=== PATIENT | male | born 1960 | race Caucasian/White ===

== ENCOUNTER 2019-08-02 16:00 | Inpatient (IN) | payer BC ==
[~2019-08-02] VITALS: Ht 200.7 cm; Wt 146.1 kg
[2019-08-02] VITALS (14 sets, daily range): BP systolic 65–133; BP diastolic 44–68
[2019-08-02] MEDS: NOREPINEPHRIN 8MG/250ML PREMIX 250 ML IV PRN ×2 (16:00→21:14)
[2019-08-02] MEDS ORDERED: IV NORMAL SALINE 1000ML BAG 1,000 ML IV SCH ×2 (16:16→17:35)
[2019-08-02 16:52] LABS: BASO % 0 % (0-3); EOS % 0 % (0-3); LYMPH # 0.7 x10^3/uL (1.0-4.8); LYMPH % 11 % (24-48); MEAN CORPUSCULAR HEMOGLOBIN 30 pg (25-35); MEAN CORPUSCULAR HGB CONC 33 g/dL (31-37); MEAN CORPUSCULAR VOLUME 91 fL (79-100); MONO # 0.4 x10^3/uL (0.0-1.1); MONO % 7 % (0-9); NEUT # 5.6 x10^3/uL (1.8-7.7); NEUT % 83 % (31-73); PLATELET COUNT 152 x10^3/uL (140-400); RED BLOOD COUNT 1.99 x10^6/uL (4.30-5.70); RED CELL DISTRIBUTION WIDTH 15.1 % (11.5-14.5); WHITE BLOOD COUNT 6.8 x10^3/uL (4.0-11.0)
[2019-08-02 16:56] LABS: HEMATOCRIT 18.1 % (39.0-53.0)
[2019-08-02 17:00] LABS: CALCIUM 7.9 mg/dL (8.5-10.1); CREATININE 1.2 mg/dL (0.7-1.3); POTASSIUM 3.4 mmol/L (3.5-5.1)
[2019-08-02 17:01] LABS: PROTHROMBIN TIME PATIENT 17.1 SEC (11.7-14.0)
[2019-08-02 17:06] LABS: ALBUMIN/GLOBULIN RATIO 0.3 (1.0-1.7); MAGNESIUM 1.4 mg/dL (1.8-2.4); TOTAL BILIRUBIN 0.4 mg/dL (0.2-1.0); TOTAL PROTEIN 4.8 g/dL (6.4-8.2)
[2019-08-02 17:12] LABS: % BANDS 10 % (0-9); % LYMPHS 9 % (24-48); % MONOS 3 % (0-10); % SEGS 78 % (35-66); NUCLEATED RBC 4
[2019-08-02 17:15] LABS: ANISOCYTOSIS SLIGHT; PLT ESTIMATE ADEQUATE (ADEQUATE); POLYCHROMASIA MOD; TOXIC GRANULATION SLIGHT
--- NOTE | 2019-08-02 17:16 | PHYS DOC ---
Adult General Chief Complaint Chief Complaint: low blood pressure HPI HPI Patient is a 59 year old male with history of metastatic lung cancer to the brain and bone who presents from radiology because of low blood pressure. Patient is a bed ridden for the last 4-5 days and transferred from [facility] to [facility] yesterday and was seen as an outpatient at [address] [place] [address] service of this hospital because of left lower extremity edema and large DVT and had a SVC filter placement after procedure had low blood pressure of 60s over 40s and treated with IV fluids and Levophed and sent to ER for evaluation. Patient is alert and oriented 1 and unable to give history but according to the family members he had the seizure 5 days ago with severe shaking and complaining of severe pain during transferring the ambulance. Patient was diagnosed with left femoral fracture today without orthopedic intervention. Patient had blood pressure of 80s over 60s at arrival to ER without tachycardia. Review of Systems Review of Systems Unable to obtain because of altered level of consciousness Current Medications Current Medications Current Medications Medications (Trade) Dose Ordered Sig/Ryan Start Time Stop Time Status Last Admin Dose Admin Ceftriaxone Sodium (Rocephin) 1 gm 1X ONCE 08/02/19 17:45 08/02/19 17:46 DC Sodium Chloride 1,000 ml @ 150 mls/hr [id number] 08/02/19 17:35 08/02/19 20:29 DC 08/02/19 18:20 150 MLS/HR Allergies Allergies Allergies Coded Allergies Type Severity Reaction Last Updated Verified bee venom protein (honey bee) Allergy Unknown 08/02/19 Yes Physical Exam Physical Exam Constitutional: Well nourished, mild distress, non-toxic appearance, pale. [] HENT: Normocephalic, atraumatic. Eyes: PERRLA, EOMI, conjunctiva normal, no discharge. [] Neck: Normal range of motion, no tenderness, supple, no stridor. [] Cardiovascular:Heart rate regular rhythm, no murmur [] Lungs & Thorax: Bilateral breath sounds clear to auscultation [] Abdomen: Bowel sounds normal, soft, no tenderness, no masses, no pulsatile masses. [] Skin: Warm, dry, no erythema, no rash. [] Back: No tenderness, no CVA tenderness. [] Extremities: Left thigh with deformity and tenderness and limited range of motion, right lower extremity with moderate edema and mild erythema with painful range of motion. Neurologic: Alert and oriented X 1 Psychologic: Unable to evaluate Current Patient Data Vital Signs Vital Signs Date Time Temp Pulse Resp B/P (MAP) Pulse Ox O2 Delivery O2 Flow Rate FiO2 08/02/19 17:49 100 18 93/51 (65) 92 Nasal Cannula 4.0 08/02/19 16:00 98.1 98.1 Lab Values Laboratory Tests Test 08/02/19 16:17 White Blood Count 6.8 x10^3/uL (4.0-11.0) Red Blood Count 1.99 x10^6/uL (4.30-5.70) L Hemoglobin 6.0 g/dL (13.0-17.5) *L Hematocrit 18.1 % (39.0-53.0) *L Mean Corpuscular Volume 91 fL (79-100) Mean Corpuscular Hemoglobin 30 pg (25-35) Mean Corpuscular Hemoglobin Concent 33 g/dL (31-37) Red Cell Distribution Width 15.1 % (11.5-14.5) H Platelet Count 152 x10^3/uL (140-400) Neutrophils (%) (Auto) 83 % (31-73) H Lymphocytes (%) (Auto) 11 % (24-48) L Monocytes (%) (Auto) 7 % (0-9) Eosinophils (%) (Auto) 0 % (0-3) Basophils (%) (Auto) 0 % (0-3) Neutrophils # (Auto) 5.6 x10^3/uL (1.8-7.7) Lymphocytes # (Auto) 0.7 x10^3/uL (1.0-4.8) L Monocytes # (Auto) 0.4 x10^3/uL (0.0-1.1) Eosinophils # (Auto) 0.0 x10^3/uL (0.0-0.7) Basophils # (Auto) 0.0 x10^3/uL (0.0-0.2) Segmented Neutrophils % 78 % (35-66) H Band Neutrophils % 10 % (0-9) H Lymphocytes % 9 % (24-48) L Monocytes % 3 % (0-10) Nucleated Red Blood Cells 4 Toxic Granulation Slight Dohle Bodies Few Platelet Estimate Adequate (ADEQUATE) Polychromasia Mod Anisocytosis Slight Prothrombin Time 17.1 SEC (11.7-14.0) H Prothrombin Time INR 1.4 (0.8-1.1) H Activated Partial Thromboplast Time 37 SEC (24-38) Sodium Level 139 mmol/L (136-145) Potassium Level 3.4 mmol/L (3.5-5.1) L Chloride Level 103 mmol/L (98-107) Carbon Dioxide Level 29 mmol/L (21-32) Anion Gap 7 (6-14) Blood Urea Nitrogen 13 mg/dL (8-26) Creatinine 1.2 mg/dL (0.7-1.3) Estimated GFR (Cockcroft-Gault) 62.0 BUN/Creatinine Ratio 11 (6-20) Glucose Level 119 mg/dL (70-99) H Lactic Acid Level 2.8 mmol/L (0.4-2.0) H Calcium Level 7.9 mg/dL (8.5-10.1) L Magnesium Level 1.4 mg/dL (1.8-2.4) L Total Bilirubin 0.4 mg/dL (0.2-1.0) Aspartate Amino Transferase (AST) 26 U/L (15-37) Alanine Aminotransferase (ALT) 24 U/L (16-63) Alkaline Phosphatase 107 U/L (46-116) Creatine Kinase 76 U/L (39-308) Troponin I Quantitative 0.168 ng/mL (0.000-0.055) NN-Vxg-P-Type Natriuretic Peptide 1496 pg/mL (0-124) H Total Protein 4.8 g/dL (6.4-8.2) L Albumin 1.0 g/dL (3.4-5.0) L Albumin/Globulin Ratio 0.3 (1.0-1.7) L Lipase 35 U/L (73-393) L Laboratory Tests 08/02/19 16:17 Laboratory Tests 08/02/19 16:17 EKG EKG EKG interpreted by me. EKG at 1649 showed sinus rhythm at rate of 100, abnormal left axis deviation, left anterior fascicular block, prolonged QT at T7 4,] ST-T wave elevations. Radiology/Procedures Radiology/Procedures [][facility] [address] [place] [address] IMAGING REPORT Signed PATIENT: OZZY GRAY ACCOUNT: [id number] : 1960 LOCATION: [facility] ICU AGE: 59 SEX: M EXAM STATUS: ADM IN ORD. PHYSICIAN: JOSELUIS HUTCHINSON MD REASON: injury PROCEDURE: HIP LEFT 2V WITH PELVIS Exam: Left hip 2 views INDICATION: Injury TECHNIQUE: Frontal and frog-leg lateral views of the left hip Comparisons: None FINDINGS: There is a fracture through the proximal left femoral diaphysis which is moderately displaced. Apparent callus formation is noted adjacent to the fracture site. Joint spaces are well-maintained. Note fractures are seen. IMPRESSION: Moderately displaced fracture through the proximal left femoral diaphysis. There appears to be some amorphous adjacent calcifications which may represent callus formation in the subacute setting. If this is a more acute injury it raises the possibilities of an underlying pathologic lesion. Electronically signed by: Guerrero Macario MD (08/02/2019 5:50 PM) [facility] DICTATED and SIGNED BY: GUERRERO MACARIO MD DATE: 08/02/19 8026 Course & Med Decision Making Course & Med Decision Making Pertinent Labs and Imaging studies reviewed. (See chart for details) Evaluation of patient in ER showed 59-year-old patient with metastatic lung cancer and right large DVT and left femoral fracture from radiology unit because of hypotension after procedure. Patient had blood pressure of 80s over 40s that improved with IV fluid. Sepsis protocol was started with obtaining blood cultures and lactic acid and after lactic acid of 2.8 antibiotic was given. Patient is a DNR . Hemoglobin was 6.0 and blood for transfusion was requested. Patient requiring admission for further evaluation and treatment. Discussed with Dr. Coulter who is in agreement with admission. Discussed findings and plan with patient and family, who acknowledge understanding and agreement. Dragon Disclaimer Dragon Disclaimer This electronic medical record was generated, in whole or in part, using a voice recognition dictation system. Departure Departure Impression: Primary Impression: Anemia Additional Impressions: Hypertension Metastatic lung cancer (metastasis from lung to other site) Sepsis Disposition: ADMITTED INPATIENT Admitting Physician: GERSON Condition: GUARDED Referrals: ISIAH GREGORY MD (PCP) Critical Care Time Critical care time was 80 minutes exclusive of procedures. Date and Time of Reassessment Date: Aug 02, 2019 Time: 18:00 Fluid Challenge Is the fluid challenge complet: Yes IBW Target Volume Used: Yes BMI > 30: Yes Vital Signs Vital Signs: Vital Signs Date Time Temp Pulse Resp B/P (MAP) Pulse Ox O2 Delivery O2 Flow Rate FiO2 08/02/19 17:49 100 18 93/51 (65) 92 Nasal Cannula 4.0 08/02/19 16:00 98.1 98.1 Temperature Source: Axillary Respirations Respiratory Effort: Non-Labored Cardiovascular Pulse Rhythm: Regular Heart: Nml rate, reg. rhythm Lung Sounds Breath Sounds: Clear Capillary Refil Capillary Refill: Rt Hand < 3 seconds Peripheral Pulse Pulse Location: Radial Pulse Strength: Normal (2+) Pulse Assessment Method: NIBP Integumentary Skin: Warm Problem Qualifiers Primary Impression: Anemia Anemia type: unspecified type Qualified Codes: D64.9 - Anemia, unspecified Additional Impressions: Hypertension Hypertension type: unspecified Qualified Codes: I10 - Essential (primary) hypertension Metastatic lung cancer (metastasis from lung to other site) Laterality: unspecified laterality Qualified Codes: C34.90 - Malignant neoplasm of unspecified part of unspecified bronchus or lung JOSELUIS HUTCHINSON MD Aug 02, 2019 17:16
[2019-08-02] MEDS ORDERED: IV NORMAL SALINE 1000ML BAG 1,000 ML IV ONE (17:45)
[2019-08-02] MEDS ORDERED: cefTRIAXone IV Push 1 GM VIAL. IVP ONE (17:45)
--- NOTE | 2019-08-02 17:53 | RAD ---
Exam: Left hip 2 views INDICATION: Injury TECHNIQUE: Frontal and frog-leg lateral views of the left hip Comparisons: None FINDINGS: There is a fracture through the proximal left femoral diaphysis which is moderately displaced. Apparent callus formation is noted adjacent to the fracture site. Joint spaces are well-maintained. Note fractures are seen. IMPRESSION: Moderately displaced fracture through the proximal left femoral diaphysis. There appears to be some amorphous adjacent calcifications which may represent callus formation in the subacute setting. If this is a more acute injury it raises the possibilities of an underlying pathologic lesion. Electronically signed by: Guerrero Lamar MD (08/02/2019 5:50 PM) [facility]
[2019-08-02] MEDS: IV NORMAL SALINE 1000ML BAG 1,000 ML IV SCH ×2 (21:13→23:28)
--- NOTE | 2019-08-02 22:40 | PDOC2 ---
CONSULT Date of Consult Date of Consult DATE: 08/02/19 TIME: 22:36 Reason for Consult Reason for Consult: left hip fracture Identification/Chief Complaint Chief Complaint left hip fracture Source Source: Caregiver, Chart review, Patient History of Present Illness Reason for Visit: This 59-year-old man was diagnosed with metastatic lung cancer a couple of months ago, and mostly been treated at [facility] in [place]. He has metastases to the brain and bone but since he is only 59 years old he and his family have desired aggressive treatment. He was attempting to go to [facility] for additional rehabilitation. He had a seizure on Monday. He was diagnosed with a DVT in the right lower extremity. He has a pathologic fracture in the left femur that probably happened during the seizure on Monday. He has since been treated with a vena cava filter. He has bilateral pulmonary emboli recently diagnosed. I spoke to Dr. Montoya 08/03/19, and he would like to start an ticoagulation as soon as the fracture is repaired and he was hopeful Mr Funk would have surgery 08/03/19. I also spoke to the senior support engineer and to the anesthesiologist about /2 vs delay, and it seems there are significant risks either way, without any clear need to anticoagulate before surgery, and then need to hold anticoagulation for surgery anyway. I spoke to the family in detail about the risks benefits and alternatives. Another alternative is comfort care without surgery, but neither the patient nor the family was interested in nonoperative care. 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 He also has a history of thrombocytopenia, hypercalcemia of malignancy, urinary retention, GI bleeding with duodenal ulcer, also history of depression, hypertension, sleep apnea, history of prostate cancer, seizures. PAST SURGICAL HISTORY: Smart port placement, left side. FAMILY HISTORY: Noncontributory. SOCIAL HISTORY: Half a pack smoking for 17 years, social marijuana, smokeless tobacco. ALLERGIES: BEE STING. MEDICATIONS: At [facility], he was on fentanyl 12 mcg, Keppra 750 mg twice a day, modafinil 200 mg/Provigil daily, Protonix 40 mg daily, Flomax 0.4 daily, aspirin 81 mg daily, dexamethasone 2 mg every 12 hours, oxycodone 5 mg, Tylenol, amlodipine 10 mg daily, citalopram 40 mg daily, epinephrine, Lasix 20 mg daily, gabapentin 300 mg, Hyzaar 100/25, lidocaine 4%, metoprolol 50 mg daily, nitro, MiraLax, pravastatin 40 mg daily, senna daily, tramadol, ibuprofen. Social History <1 pack per day Drugs: Marijuana Lives: with Family Current Problem List Problem List 1. Pathological fracture of the left femur. 2. Lung cancer with metastasis, squamous cell. 3. Deep venous thrombosis, right leg. 4. Anemia requiring transfusion. 5. Hypotension. 6. History of lung cancer with metastasis to the brain and to the lumbar spine, had a chemo as well as radiation treatment. 7. Supraventricular tachycardia, heart rate around 140, probably multiple factors, slight bump in troponin 0.1. 8. Recent GI Bleed 9. Bilateral Pulmonary Emboli Current Medications Current Medications Current Medications Sodium Chloride 1,000 ml @ 1,000 mls/hr Q1H IV Last administered on 08/02/19at 16:16; Start 08/02/19 at 16:16; Stop 08/02/19 at 17:15; Status DC Ceftriaxone Sodium (Rocephin) 1 gm 1X ONCE IVP ; Start 08/02/19 at 17:45; Stop 08/02/19 at 17:46; Status DC Sodium Chloride 1,000 ml @ 1,000 mls/hr 1X ONCE IV Last administered on 08/02/19at 17:45; Start 08/02/19 at 17:45; Stop 08/02/19 at 18:44; Status DC Sodium Chloride 1,000 ml @ 150 mls/hr Q6H40M IV Last administered on 08/02/19at 18:20; Start 08/02/19 at 17:35; Stop 08/02/19 at 20:29; Status DC Norepinephrine Bitartrate 250 ml @ 29.512 mls/ hr CONT PRN IV SEE I/O RECORD Last administered on 08/02/19at 21:14; Start 08/02/19 at 19:15 Sodium Chloride 1,000 ml @ 200 mls/hr Q5H IV Last administered on 08/02/19at 21:13; Start 08/02/19 at 20:30 Fentanyl Citrate (Fentanyl 2ml Vial) 25 mcg PRN Q2HR PRN IVP MODERATE TO SEVERE PAIN; Start 08/02/19 at 20:30 Allergies Allergies: Coded Allergies: bee venom protein (honey bee) (Verified Allergy, Intermediate, 08/03/19) Physical Exam General: Alert, Cooperative HEENT: Atraumatic Lungs: Other (O2 4L NC 95% sat, no cyanosis, able to converse without difficulty) Heart: Regular rate Abdomen: Soft Extremities: Other (LLE is shortened and externally rotated. The skin is intact over the fracture. There is tenderness of the proximal femur. He can dorsiflex and plantar flex the toes and has intact pulses and sensation distally.) Skin: No significant lesion Neuro: Normal tone, Sensation intact MUSCULOSKELETAL: Abnormal exam of right (thigh and calf, tender to palpation consistent with DVT. Diffuse swelling. Pulses intact. Motor intact.), Abn muscle strength of (right arm recent paralysis episode. Left arm has full ROM, without malalignment deformity or tenderness) Vitals VITALS Vital Signs Date Time Temp Pulse Resp B/P (MAP) Pulse Ox O2 Delivery O2 Flow Rate FiO2 08/02/19 22:12 98.8 103 18 115/60 98.8 08/02/19 22:00 93 Nasal Cannula 4.0 Labs Labs Laboratory Tests Test 08/02/19 16:17 08/02/19 20:15 White Blood Count 6.8 x10^3/uL (4.0-11.0) Red Blood Count 1.99 x10^6/uL (4.30-5.70) Hemoglobin 6.0 g/dL (13.0-17.5) Hematocrit 18.1 % (39.0-53.0) Mean Corpuscular Volume 91 fL (79-100) Mean Corpuscular Hemoglobin 30 pg (25-35) Mean Corpuscular Hemoglobin Concent 33 g/dL (31-37) Red Cell Distribution Width 15.1 % (11.5-14.5) Platelet Count 152 x10^3/uL (140-400) Neutrophils (%) (Auto) 83 % (31-73) Lymphocytes (%) (Auto) 11 % (24-48) Monocytes (%) (Auto) 7 % (0-9) Eosinophils (%) (Auto) 0 % (0-3) Basophils (%) (Auto) 0 % (0-3) Neutrophils # (Auto) 5.6 x10^3/uL (1.8-7.7) Lymphocytes # (Auto) 0.7 x10^3/uL (1.0-4.8) Monocytes # (Auto) 0.4 x10^3/uL (0.0-1.1) Eosinophils # (Auto) 0.0 x10^3/uL (0.0-0.7) Basophils # (Auto) 0.0 x10^3/uL (0.0-0.2) Segmented Neutrophils % 78 % (35-66) Band Neutrophils % 10 % (0-9) Lymphocytes % 9 % (24-48) Monocytes % 3 % (0-10) Nucleated Red Blood Cells 4 Toxic Granulation Slight Dohle Bodies Few Platelet Estimate Adequate (ADEQUATE) Polychromasia Mod Anisocytosis Slight Prothrombin Time 17.1 SEC (11.7-14.0) Prothromb Time International Ratio 1.4 (0.8-1.1) Activated Partial Thromboplast Time 37 SEC (24-38) Sodium Level 139 mmol/L (136-145) Potassium Level 3.4 mmol/L (3.5-5.1) Chloride Level 103 mmol/L (98-107) Carbon Dioxide Level 29 mmol/L (21-32) Anion Gap 7 (6-14) Blood Urea Nitrogen 13 mg/dL (8-26) Creatinine 1.2 mg/dL (0.7-1.3) Estimated GFR (Cockcroft-Gault) 62.0 BUN/Creatinine Ratio 11 (6-20) Glucose Level 119 mg/dL (70-99) Lactic Acid Level 2.8 mmol/L (0.4-2.0) 1.3 mmol/L (0.4-2.0) Calcium Level 7.9 mg/dL (8.5-10.1) Magnesium Level 1.4 mg/dL (1.8-2.4) Total Bilirubin 0.4 mg/dL (0.2-1.0) Aspartate Amino Transf (AST/SGOT) 26 U/L (15-37) Alanine Aminotransferase (ALT/SGPT) 24 U/L (16-63) Alkaline Phosphatase 107 U/L (46-116) Creatine Kinase 76 U/L (39-308) Troponin I Quantitative 0.168 ng/mL (0.000-0.055) LB-Sbv-C-Type Natriuretic Peptide 1496 pg/mL (0-124) Total Protein 4.8 g/dL (6.4-8.2) Albumin 1.0 g/dL (3.4-5.0) Albumin/Globulin Ratio 0.3 (1.0-1.7) Lipase 35 U/L (73-393) Laboratory Tests Test 08/02/19 16:17 08/02/19 20:15 White Blood Count 6.8 x10^3/uL (4.0-11.0) Red Blood Count 1.99 x10^6/uL (4.30-5.70) Hemoglobin 6.0 g/dL (13.0-17.5) Hematocrit 18.1 % (39.0-53.0) Mean Corpuscular Volume 91 fL (79-100) Mean Corpuscular Hemoglobin 30 pg (25-35) Mean Corpuscular Hemoglobin Concent 33 g/dL (31-37) Red Cell Distribution Width 15.1 % (11.5-14.5) Platelet Count 152 x10^3/uL (140-400) Neutrophils (%) (Auto) 83 % (31-73) Lymphocytes (%) (Auto) 11 % (24-48) Monocytes (%) (Auto) 7 % (0-9) Eosinophils (%) (Auto) 0 % (0-3) Basophils (%) (Auto) 0 % (0-3) Neutrophils # (Auto) 5.6 x10^3/uL (1.8-7.7) Lymphocytes # (Auto) 0.7 x10^3/uL (1.0-4.8) Monocytes # (Auto) 0.4 x10^3/uL (0.0-1.1) Eosinophils # (Auto) 0.0 x10^3/uL (0.0-0.7) Basophils # (Auto) 0.0 x10^3/uL (0.0-0.2) Segmented Neutrophils % 78 % (35-66) Band Neutrophils % 10 % (0-9) Lymphocytes % 9 % (24-48) Monocytes % 3 % (0-10) Nucleated Red Blood Cells 4 Toxic Granulation Slight Dohle Bodies Few Platelet Estimate Adequate (ADEQUATE) Polychromasia Mod Anisocytosis Slight Prothrombin Time 17.1 SEC (11.7-14.0) Prothromb Time International Ratio 1.4 (0.8-1.1) Activated Partial Thromboplast Time 37 SEC (24-38) Sodium Level 139 mmol/L (136-145) Potassium Level 3.4 mmol/L (3.5-5.1) Chloride Level 103 mmol/L (98-107) Carbon Dioxide Level 29 mmol/L (21-32) Anion Gap 7 (6-14) Blood Urea Nitrogen 13 mg/dL (8-26) Creatinine 1.2 mg/dL (0.7-1.3) Estimated GFR (Cockcroft-Gault) 62.0 BUN/Creatinine Ratio 11 (6-20) Glucose Level 119 mg/dL (70-99) Lactic Acid Level 2.8 mmol/L (0.4-2.0) 1.3 mmol/L (0.4-2.0) Calcium Level 7.9 mg/dL (8.5-10.1) Magnesium Level 1.4 mg/dL (1.8-2.4) Total Bilirubin 0.4 mg/dL (0.2-1.0) Aspartate Amino Transf (AST/SGOT) 26 U/L (15-37) Alanine Aminotransferase (ALT/SGPT) 24 U/L (16-63) Alkaline Phosphatase 107 U/L (46-116) Creatine Kinase 76 U/L (39-308) Troponin I Quantitative 0.168 ng/mL (0.000-0.055) ZF-Ofk-L-Type Natriuretic Peptide 1496 pg/mL (0-124) Total Protein 4.8 g/dL (6.4-8.2) Albumin 1.0 g/dL (3.4-5.0) Albumin/Globulin Ratio 0.3 (1.0-1.7) Lipase 35 U/L (73-393) Images Images Report reviewed, images independently reviewed. Probable pathologic fracture left femur. Likely metastatic disease. [facility] [address] [place] [address] IMAGING REPORT Signed PATIENT: OZZY FUNK ACCOUNT: [id number] : 1960 LOCATION: [facility] ICU AGE: 59 SEX: M EXAM STATUS: ADM IN ORD. PHYSICIAN: JOSELUIS HUTCHINSON MD REASON: injury PROCEDURE: HIP LEFT 2V WITH PELVIS Exam: Left hip 2 views INDICATION: Injury TECHNIQUE: Frontal and frog-leg lateral views of the left hip Comparisons: None FINDINGS: There is a fracture through the proximal left femoral diaphysis which is moderately displaced. Apparent callus formation is noted adjacent to the fracture site. Joint spaces are well-maintained. Note fractures are seen. IMPRESSION: Moderately displaced fracture through the proximal left femoral diaphysis. There appears to be some amorphous adjacent calcifications which may represent callus formation in the subacute setting. If this is a more acute injury it raises the possibilities of an underlying pathologic lesion. Electronically signed by: Guerrero Macario MD (08/02/2019 5:50 PM) [facility] DICTATED and SIGNED BY: GUERRERO MACARIO MD DATE: 08/02/19 1750 Assessment/Plan Assessment/Plan Left proximal femur pathologic fracture. Unless biopsy and workup was performed elsewhere, he would need neoplasm workup. Will discuss need for stabilization of fracture. Addendum Patient had workup in [place], known lung CA with mets to brain and bone. See updated HPI. I spoke to Dr. Montoya 08/03/19, and he would like to start anticoagulation as soon as the fracture is repaired and he was hopeful Mr Funk would have surgery 08/03/19. I have also discussed the case with Dr. Moreno the senior support engineer, and Dr. Mulligan the anesthesiologist by phone on 08/03 discussing surgery on 08/03 vs delay, and it seems there are significant risks either way, without any clear need to anticoagulate before surgery, and then need to hold anticoagulation for surgery anyway. I spoke to the family in detail about the risks benefits and alternatives. Another alternative is comfort care without surgery, but neither the patient nor the family was interested in nonoperative care. I spoke to them about the significant risks of pulmonary emboli, fat emboli, bleeding, infection, nonunion or malunion, continued pain, or other potential surgical or anesthetic complications. This is a very complicated case, high risk for multiple reasons. There is risk of intraoperative . All of the patient and family's questions were answered and he desired to proceed with surgery today. THERESA SHERMAN MD Aug 02, 2019 22:40
[2019-08-02 22:46] LABS: BASO % 0 % (0-3); EOS % 0 % (0-3); HEMATOCRIT 26.4 % (39.0-53.0); HEMOGLOBIN 8.8 g/dL (13.0-17.5); LYMPH # 0.7 x10^3/uL (1.0-4.8); LYMPH % 9 % (24-48); MEAN CORPUSCULAR HEMOGLOBIN 30 pg (25-35); MEAN CORPUSCULAR HGB CONC 33 g/dL (31-37); MEAN CORPUSCULAR VOLUME 89 fL (79-100); MONO # 0.6 x10^3/uL (0.0-1.1); MONO % 7 % (0-9); NEUT # 7.1 x10^3/uL (1.8-7.7); NEUT % 84 % (31-73); PLATELET COUNT 178 x10^3/uL (140-400); RED BLOOD COUNT 2.98 x10^6/uL (4.30-5.70); WHITE BLOOD COUNT 8.5 x10^3/uL (4.0-11.0)
[2019-08-03] VITALS (30 sets, daily range): BP systolic 76–151; BP diastolic 43–83
[2019-08-03] MEDS: IV NORMAL SALINE 1000ML BAG 1,000 ML IV SCH ×4 (04:53→20:41)
--- NOTE | 2019-08-03 05:30 | NUR ---
Pt. admitted to room 107 from ED. Family at bedside shortly after arrival, pt. and family updated on plan of care. Dr. Painting phoned unit, updated on pt. condition, orders received. Consult placed with Dr. Eduardo's answering service, requested return call, no return call received.
[2019-08-03 06:10] LABS: BASO # 0.1 x10^3/uL (0.0-0.2); BASO % 1 % (0-3); EOS % 0 % (0-3); HEMOGLOBIN 8.6 g/dL (13.0-17.5); LYMPH # 0.7 x10^3/uL (1.0-4.8); LYMPH % 10 % (24-48); MEAN CORPUSCULAR HEMOGLOBIN 29 pg (25-35); MEAN CORPUSCULAR HGB CONC 33 g/dL (31-37); MEAN CORPUSCULAR VOLUME 89 fL (79-100); MONO # 0.5 x10^3/uL (0.0-1.1); MONO % 7 % (0-9); NEUT # 5.6 x10^3/uL (1.8-7.7); NEUT % 82 % (31-73); PLATELET COUNT 185 x10^3/uL (140-400); RED BLOOD COUNT 2.94 x10^6/uL (4.30-5.70); RED CELL DISTRIBUTION WIDTH 15.3 % (11.5-14.5); WHITE BLOOD COUNT 6.9 x10^3/uL (4.0-11.0)
[2019-08-03 06:49] LABS: CALCIUM 8.2 mg/dL (8.5-10.1); CREATININE 0.8 mg/dL (0.7-1.3); GFR 98.9
[2019-08-03 06:54] LABS: POTASSIUM 2.7 mmol/L (3.5-5.1)
--- NOTE | 2019-08-03 06:58 | EKG ---
[facility] [address] [place] [address] Test Date: 2019-08-03 Test Time: 07:52:15 Pat Name: OZZY GRAY Department: Room: 107 1 Gender: M Associate Software Development Engineer: SUSHATN : 1960 Requested By: ISIAH GREGORY Order Number: [id number] Reading MD: Measurements Intervals Aurora Rate: 145 P: [place]: QRS: -66 QRSD: 92 T: 76 QT: 316 QTc: 494 Interpretive Statements SUPRAVENTRICULAR TACHYCARDIA ABNORMAL LEFT AXIS DEVIATION S1,S2,S3 PATTERN LEFT ANTERIOR FASCICULAR BLOCK QRS(T) CONTOUR ABNORMALITY CONSIDER ANTEROLATERAL MYOCARDIAL DAMAGE ST & T ABNORMALITY, CONSIDER INFERIOR ISCHEMIA OR LEFT VENTRICULAR STRAIN ABNORMAL ECG RI6.01 No previous ECG available for comparison
[2019-08-03] MEDS: POTASSIUM CHL 20MEQ PREMIX 50 ML IV SCH ×3 (07:10→09:26)
[2019-08-03] MEDS: NOREPINEPHRIN 8MG/250ML PREMIX 250 ML IV PRN (07:26)
--- NOTE | 2019-08-03 07:49 | RAD ---
AP chest x-ray HISTORY: Pain. FINDINGS: Left subclavian portacatheter tip right atrium. Heart size is normal. There is a 4 cm soft tissue mass at the left lung apex. No pneumothorax. No pleural effusions. Bones are unremarkable. IMPRESSION: 4 cm round mass at the left upper lobe apex. If this has not been previously worked up, CT chest imaging would be advised. Left knee AP lateral x-rays 2 views HISTORY: Pain and loss of range of motion. FINDINGS: Soft tissue edema of the thigh, knee and upper calf diffusely. No fracture of the femur, tibia or fibula at the knee. No dislocation. There is a 2 cm long enthesophyte of the quadriceps tendon insertion at the upper patella which has a or lateral linear defect which could be a fracture. IMPRESSION: Quadriceps tendinosis with a prominent enthesophyte which has a linear lucency which could represent a fracture of the enthesophyte of indeterminate age. AP pelvis and left hip lateral x-rays HISTORY: Pain and loss of range of motion of the left hip. FINDINGS: Catheter presumably with the bladder. There is an aggressive destructive lytic permeative lesion involving the left intertrochanteric femur, lesser femoral trochanter and subtrochanteric femoral shaft along the medial cortex associated with a pathologic fracture with 5 cm of distraction. IMPRESSION: Pathologic proximal left femoral fracture associated with an aggressive permeative lytic lesion, most likely a metastasis or plasmacytoma. A sarcoma would also be a consideration. There appears to be extraosseous extension of the lesion at the medial thigh. Electronically signed by: Titus Singh MD (08/03/2019 7:45 AM) [facility]
[2019-08-03] MEDS: fentaNYL PF VIAL 100 MCG/2 ML VIAL IVP PRN ×3 (08:06→19:14)
--- NOTE | 2019-08-03 10:28 | PDOC ---
Provider Note Provider Note Pt seen in ICU, H&P dictated.#[id number]. spoke with oncology and cardiology. spoke with pts sister at bedside. ortho had seen pt . pt on high dose levophed for hypotension hb 6, transfused 2 u prbc PSVT monitor will do CTA r/o PE BOB PHAN MD Aug 03, 2019 10:28
[2019-08-03] MEDS ORDERED: MAGNESIUM SULFATE 2GM 50 ML IV ONE (11:00)
[2019-08-03] MEDS ORDERED: IOHEXOL 350 MG/ML 100 ML VIAL. IV ONE (11:30)
[2019-08-03] MEDS ORDERED: CONTRAST GIVEN. MC PRN (11:30)
--- NOTE | 2019-08-03 11:54 | HP ---
ADMIT DATE: 08/02/2019 ATTENDING PHYSICIAN: Dr. Fern Retana. REASON FOR ADMISSION TO THE HOSPITAL: 1. Anemia. 2. Femoral fracture, pathological. 3. History of lung cancer. HISTORY OF PRESENT ILLNESS: The patient is a 59-year-old male. 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 The patient was treated in 07/2019 with Keytruda. He had brain radiation. Had radiation to lumbar spine too, total of 10 treatments in July. The patient was initially admitted to acute rehab, but continued to have generalized weakness, unable to tolerate rehab. The patient was transferred to [facility] that was 2 days ago and the patient in the [facility] was found to have a hemoglobin low at 6.8 and he also was found to have a DVT, right leg. The patient was sent to [facility] for IVC filter and x-rays show he had a pathological fracture of the left hip and the patient was also hypotensive, anemic, hemoglobin 6, was admitted to the ICU, was started on Levophed and also given 2 units of packed RBC, hemoglobin went up to 8. The patient is being evaluated by orthopedic, Cardiology. PAST MEDICAL HISTORY: The patient as mentioned has a history of lung cancer, squamous cell with metastasis to the brain into the lumbar spine L1, had a chemo, Keytruda as well as radiation treatment. He also has a history of thrombocytopenia, hypercalcemia of malignancy, urinary retention, GI bleeding with duodenal ulcer, also history of depression, hypertension, sleep apnea, history of prostate cancer, seizures. PAST SURGICAL HISTORY: Smart port placement, left side. FAMILY HISTORY: Noncontributory. SOCIAL HISTORY: Half a pack smoking for 17 years, social marijuana, smokeless tobacco. ALLERGIES: BEE STING. MEDICATIONS: At [facility], he was on fentanyl 12 mcg, Keppra 750 mg twice a day, modafinil 200 mg/Provigil daily, Protonix 40 mg daily, Flomax 0.4 daily, aspirin 81 mg daily, dexamethasone 2 mg every 12 hours, oxycodone 5 mg, Tylenol, amlodipine 10 mg daily, citalopram 40 mg daily, epinephrine, Lasix 20 mg daily, gabapentin 300 mg, Hyzaar 100/25, lidocaine 4%, metoprolol 50 mg daily, nitro, MiraLax, pravastatin 40 mg daily, senna daily, tramadol, ibuprofen. PHYSICAL EXAMINATION: GENERAL: The patient ICU, not in any distress. VITAL SIGNS: Temperature 98, pulse of 140, coming down to 120, respirations 20, blood pressure 110/60 on Levophed at least 50 mcg. HEENT: Head is atraumatic. Pupils equal. Oral cavity, dry tongue. NECK: Supple. No mass palpable. CHEST: Symmetrical, has a port in the left side of chest. CARDIOVASCULAR: S1, S2, tachycardic. LUNGS: Diminished breath sounds. ABDOMEN: Soft, no mass palpable. EXTERNAL GENITALIA: Mar catheter. RECTAL: Deferred. EXTREMITIES: Swelling in the right leg 2-3+. Patient has a DVT, right leg and left leg. The patient denies any pain in the groin area, did not move. Examination of the lower extremities is deferred at this point. LABORATORY DATA: Shows a white count of 6, hemoglobin 6 and given 2 units of packed RBC, went up to 8, and platelets are normal. Electrolytes: Sodium 145, potassium 2.7, magnesium 1.4, BUN and creatinine are normal and the patient had x-ray of the pelvis, which shows femoral fracture of the femoral neck or upper femur. FINAL IMPRESSION: 1. Pathological fracture of the left femur. 2. Lung cancer with metastasis, squamous cell.stage 4 3. Deep venous thrombosis, right leg.Acute 4. Anemia requiring transfusion. 5. Hypotension.on Levophed 40 mcg 6. History of lung cancer with metastasis to the brain and to the lumbar spine, had a chemo as well as radiation treatment. 7. Supraventricular tachycardia, heart rate around 140, probably multiple factors, slight bump in troponin 0.1. 8.H/o GI bleed recent duodenal ulcer . 9.PE extensive bilateral lungs, PLAN: Orthopedic is consulted for possible surgery. We will replace potassium and magnesium .Tranfuse 2 u prbc to keep HB around 8.0. Cardiology is consulted for SVT will do ECHO for lvf.Levophed for BP control on 40 mcg,Pain control on fentanyl. spoke with multiple specialists.CTA chest showed PE multiple , will consult pulmonary. total time spent 43 mts coordinating care have Oncology see while he is in the hospital. Prognosis is guarded. BOB PHAN MD DR: Lexy JOB#: [id number] / [id number] [facility]
--- NOTE | 2019-08-03 12:13 | RAD ---
CT angiography chest with contrast. CT pelvis without contrast. HISTORY: Lung cancer, DVT, left hip fracture. TECHNIQUE: Noncontrast imaging of the pelvis and postcontrast CT imaging of the chest with 100 mL Omnipaque 350 intravenous contrast with 3-D MIP reconstructions of the pulmonary arteries to assess for emboli. Chest findings: Extensive bilateral pulmonary artery emboli involving the distal right and left pulmonary arteries at the guy which are near occlusive with extensive embolic burden within the bilateral peripheral lobar arteries. No saddle embolus evident. No obvious enlargement of the right heart chambers evident. Heart size normal. Thoracic aorta and esophagus are unremarkable. Bulky bilateral hilar and mediastinal adenopathy largest measuring 3 cm at the AP window. Left upper lobe apex 4.7 cm mass contacts the pleura. Separately there is an aggressive lytic lesion with extensive soft tissue mass involving the left posterior lateral second rib with extensive involvement of the pleura and chest wall measuring 7.5 cm in size. Separately there is a posterior right sixth rib lytic lesion adjacent of the costovertebral junction with adjacent pleural thickening which could indicate pleural invasion by the lesion. Some subpleural groundglass opacities and nodularity could represent pulmonary infarcts. No pleural effusions. Apical pulmonary emphysema. IMPRESSION: 1. Extensive bilateral pulmonary emboli as described above. There may be subpleural pulmonary infarcts present. 2. 4 cm left upper lobe apical mass concerning for lung malignancy or metastatic disease. 3. Extensive thoracic metastatic disease with bulky mediastinal and hilar adenopathy as well as lytic bone lesions with extraosseous soft tissue extension as described above. Pelvis findings: There is an aggressive permeative destructive lytic lesion of the left subtrochanteric femoral shaft and lesser trochanter with a pathologic spiral fracture which is distracted by 4 cm , there is blowout of bony fragments and soft tissue density suspicious for extraosseous extension of tumor in a 9 cm region surrounding the fracture within the deep thigh. No additional pelvic lytic or sclerotic bony lesions evident. Catheter in the bladder. IMPRESSION: Lytic destructive lesion of the proximal left femur with a pathologic fracture most likely a lytic bony metastasis given the presence of additional lesions in the chest as described above. FOR INTERNAL CODING PURPOSES Critical result: Findings discussed with the patient's ICU nurse James Jansen at 08/03/2019 12:09 PM. Read back of report was performed. The nurse is calling the treating physician with these results immediately. RESULT CODE: (C) Exposure: One or more of the following individualized dose reduction techniques were utilized for this examination: 1. Automated exposure control 2. Adjustment of the mA and/or kV according to patient size 3. Use of iterative reconstruction technique Electronically signed by: Titus Singh MD (08/03/2019 12:10 PM) [facility]
--- NOTE | 2019-08-03 12:46 | PDOC ---
Provider Note Provider Note CT scans and report reviewed. Bilateral pulmonary emboli. CT femur shows lytic lesion with pathologic fracture. I had initially planned femur stabilization today, however I am concerned that femur stabilization today would cause intra-operative progressive pulmonary emoboli due to required intramedullary femoral reaming and manipulation of lower extremity. I will consult Pulmonary to discuss surgical timing, anticoagulation (heparinize now with surgery later?), and whether a vena cava filter would offer any benefit. THERESA SHERMAN MD Aug 03, 2019 12:46
--- NOTE | 2019-08-03 13:01 | PDOC2 ---
CARDIOLOGY CONSULT NOTE CHEIF COMPLAINT: Tachycardia and positive troponin HPI: 59-year-old man with unfortunate metastatic cancer comes into the hospital in the setting of hypotension. He is also had some dyspnea and significant tachycardia. In speaking with the patient he has been bedridden for nearly 2 months due to various issues including debility and metastatic cancer. His mother and sister are at bedside. Presently he denies any chest pain. Thus far evaluations revealed DVT, a significant pulmonary emboli burden. PMHX: Metastatic cancer DVT Debility with recent pathologic left hip fracture Hypertension history SOCHX: He is . No alcohol, tobacco or illicit drug use. FAMHX: Noncontributory CURRENT MEDS: Current Medications Medications (Trade) Dose Ordered Sig/Ryan Route PRN Reason Start Time Stop Time Status Last Admin Dose Admin Sodium Chloride 1,000 ml @ 1,000 mls/hr Q1H IV 08/02/19 16:16 08/02/19 17:15 DC 08/02/19 16:16 Sodium Chloride 1,000 ml @ 1,000 mls/hr 1X ONCE IV 08/02/19 17:45 08/02/19 18:44 DC 08/02/19 17:45 Sodium Chloride 1,000 ml @ 150 mls/hr Q6H40M IV 08/02/19 17:35 08/02/19 20:29 DC 08/02/19 18:20 Norepinephrine Bitartrate 250 ml @ 29.512 mls/ hr CONT PRN IV SEE I/O RECORD 08/02/19 19:15 08/03/19 07:26 Sodium Chloride 1,000 ml @ 200 mls/hr Q5H IV 08/02/19 20:30 08/03/19 10:28 Fentanyl Citrate (Fentanyl 2ml Vial) 25 mcg PRN Q2HR PRN IVP MODERATE TO SEVERE PAIN 08/02/19 20:30 08/03/19 10:48 Potassium Chloride/Water 50 ml @ 50 mls/hr Q1H IV 08/03/19 07:00 08/03/19 09:59 DC 08/03/19 09:26 Magnesium Sulfate 50 ml @ 25 mls/hr 1X ONCE IV 08/03/19 11:00 08/03/19 12:59 08/03/19 10:29 ALLERGIES: Allergies Coded Allergies Type Severity Reaction Last Updated Verified bee venom protein (honey bee) Allergy Intermediate 08/03/19 Yes ROS: Negative unless otherwise mentioned above in history of present illness PHYSICAL EXAM: Vital Signs/I&O: Vital Signs Date Time Temp Pulse Resp B/P (MAP) Pulse Ox O2 Delivery O2 Flow Rate FiO2 08/03/19 10:48 13 92 Room Air 08/03/19 08:30 146 111/66 (81) 08/03/19 08:00 4.0 08/03/19 08:00 98.8 98.8 I & O 08/02/19 08/02/19 08/03/19 15:00 23:00 07:00 Intake Total 2637 ml 2489 ml Output Total 1400 ml 1660 ml Balance 1237 ml 829 ml Physical Exam: On examination he is a large man weighing approximately 140 kg He is in no acute distress but appears fatigued Cardiac exam is notable for a tachycardic rhythm without any murmurs or rubs Lungs are clear bilaterally Abdomen is soft There is trace to 1+ lower extremity edema Neurologically he has significant weakness of lower extremities DIAGNOSTIC TESTING: Diagnostic studies including CT of the chest reviewed. EKG and telemetry reviewed ASSESSMENT: 1. Tachycardia and hypotension the setting of DVT, severe anemia and metastatic cancer PLAN: 1. From a purely cardiovascular perspective he is a very poor candidate for any aggressive interventions should he need it. At this present time I suspect most of his presentation is related to the other comorbidities as listed. His troponin elevation is likely secondary to right heart strain. I had a long discussion with the patient, his family and they wish to continue a ggressive care. In light of this we will obtain an echocardiogram to help delineate any further treatment strategies that might be helpful. From a cardiac perspective he would be high risk for any surgical intervention at this time. I discussed this with the patient's family. Consider hospice. D/w STEPHANIE Jalloh MD Aug 03, 2019 13:01
--- NOTE | 2019-08-03 13:29 | PDOC ---
Provider Note Provider Note I spoke to Dr. Moreno child development consultant and Dr. Jurado anesthesia. No benefit to heparinizing for a day. Would need to heparinize for at least 3-4 days for any benefit, and going without fracture fixation for that long is additional risk. Also, he received a vena cava filter yesterday, so additional DVT risk is mitigated. (Fat emboli would still be present, but they aren't helped by anticoagulation.) I recommend proceeding today. I spoke to family about risks, benefits and alternatives: surgery today, or wait 3-4 days. Other alternatives would be nonoperative treatment (comfort care only) but they are interested in aggressive care for this 59 year old. I offered and recommend surgery today THERESA SHERMAN MD Aug 03, 2019 13:29
[2019-08-03] MEDS ORDERED: ceFAZolin SODIUM 3 GM in IV DEXTROSE 5% 100ML 100 ML IV PRN (14:00)
[2019-08-03] MEDS ORDERED: fentaNYL PF VIAL 100 MCG/2 ML VIAL ONE (14:36)
[2019-08-03] MEDS ORDERED: ROCURONIUM 50 MG/5 ML VIAL. ONE ×2 (14:36→15:39)
[2019-08-03] MEDS ORDERED: ONDANSETRON PF 4 MG/2 ML VIAL. ONE (14:37)
[2019-08-03] MEDS ORDERED: ETOMIDATE 20 MG/10 ML VIAL. IV ONE (14:37)
[2019-08-03] MEDS ORDERED: DEXAMETHASONE SOD PHOS 4 MG/ML VIAL ONE (14:37)
--- NOTE | 2019-08-03 14:52 | CONS ---
DATE OF CONSULTATION: 08/03/2019 REQUESTING PHYSICIAN: Geetha Painting MD. REASON FOR CONSULTATION: Lung cancer, stage IV. HISTORY OF PRESENT ILLNESS: The patient is a 59-year-old gentleman who was diagnosed with lung cancer with bone metastasis and brain metastasis in 2019. He is under the care of Dr. Leonardo in [place]. He has received palliative radiation therapy to the brain, lumbar spine. He was started on Keytruda and he has completed two treatments so far and the family mentions that the patient was supposed to get a total of 3 and then get a scan. He will be due for Keytruda in a couple of weeks. He was admitted to [facility] for generalized weakness. He developed DVT of the right lower extremity and fracture of the left femur. The IVC filter was placed for management of DVT. Anticoagulation was not initiated because of recent GI bleed from an ulcer in the small bowel. [facility] with generalized weakness and he was noted to have anemia with hemoglobin of 6.0 and he received 2 units of PRBC transfusion and the hemoglobin is now up to 8.6. He is hypotensive and is on Levophed. No fever. He underwent hip x-ray on 08/02/2019 that revealed moderately displaced fracture through the proximal left femoral diaphysis. Chest x-ray on 08/03/2019 revealed 4 cm round mass in the left upper lobe apex. PAST MEDICAL HISTORY: Lung cancer with metastasis to the brain and bone. GI bleed. DVT right lower extremity, status post IVC filter placement. He has a history of seizure. SOCIAL HISTORY: The patient's family is at the bedside. FAMILY HISTORY: No history of hypercoagulable state. REVIEW OF SYSTEMS: A 12-point review of system was performed. Pertinent positives are mentioned in the history of present illness. Rest of the system review is negative. PHYSICAL EXAMINATION: GENERAL APPEARANCE: The patient is a 59-year-old -[place] gentleman who is in no acute cardiorespiratory distress. VITAL SIGNS: Blood pressure 113/68, temperature 99.3. HEENT: Atraumatic, normocephalic. EYES: No icterus. NECK: Supple. CHEST: Bilaterally symmetrical. No crepitations or rhonchi heard. HEART: S1, S2 normal. ABDOMEN: Soft, nontender. CENTRAL NERVOUS SYSTEM: No focal deficits. LYMPHATICS: No lymphadenopathy. SKIN: No rashes. MUSCULOSKELETAL: He has pedal edema in the right lower extremity and left lower extremity and severe pain in the left lower extremity due to hip fracture. LABORATORY DATA: WBC 6.8, hemoglobin 6, platelet count 152 on 08/02/2019. Post-transfusion hemoglobin is 8.6, albumin 1.0. IMPRESSION AND PLAN: 1. 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 He is on treatment with Keytruda under the direction of his oncologist, Dr. Leonardo in [place]. I have advised him to continue to follow up with his oncologist upon discharge for continued management. He has received 2 cycles so far and he will get a third cycle and then get a scan to evaluate for response. 2. Pathologic fracture of the left femoral diaphysis thought to be due to bone metastasis. Appreciate Orthopedics consultation, agreed to proceed with surgery. 3. Deep venous thrombosis of the right lower extremity due to underlying malignancy. He is not a candidate for anticoagulation because of recent GI bleed from small bowel ulcer. He underwent IVC filter placement on 08/02/2019. Venous Doppler of the right lower extremity on 08/02/2019 revealed occlusive thrombus from the right common femoral vein through the calf veins. Left lower extremity veins are patent. 4. Anemia due to recent GI bleed and hip fracture. I will check iron studies and B12. Continue to monitor hemoglobin and transfuse as needed. 5. Hypotension, multifactorial. I agree to obtain CT angiogram of the chest to rule out pulmonary embolism. I suspect that he may also have bleeding at that site of the fracture. Continue monitoring. I discussed with Dr. Painting. I discussed with registered nurse. I also discussed with multiple family members. KATHIE MACIAS MD DR: JAIMIE/yovani JOB#: [id number] / [id number] [facility]
[2019-08-03] MEDS ORDERED: PHENYLEPHRINE in 0.9% NACL PF 1 MG/10 ML SYRINGE. IV ONE (15:48)
--- NOTE | 2019-08-03 15:48 | CONS ---
DATE OF CONSULTATION: 08/03/2019 PULMONARY CONSULTATION HISTORY OF PRESENT ILLNESS: This is a 59-year-old male that we are asked to consult on for his respiratory condition. The patient has metastatic squamous cell lung cancer with metastases to the brain as well as multiple bone metastases. He was recently in [facility]. Approximately 1 week ago, he had a significant GI bleed that required endoscopic treatment. He was then transferred to [facility]. He was admitted yesterday to [facility] with a pathological femoral fracture and significant anemia with hypotension. He recently received an inferior vena cava filter at [facility]. In the evaluation of his femoral fracture, it was discovered that he had deep venous thrombosis in the legs and subsequently a CTA of the chest revealed that he had extensive pulmonary emboli. He has been treated with radiation to the brain as well as bone radiation and treatment with Keytruda. PAST MEDICAL HISTORY: Significant for the history above along with thrombocytopenia, hypercalcemia, urinary retention, depression, hypertension, sleep apnea, history of prostate cancer, and history of seizures. FAMILY HISTORY: Negative for lung disease. SOCIAL HISTORY: He smoked tobacco for 17 years. REVIEW OF SYSTEMS: Review of systems was otherwise negative, but the patient seems confused and I do not think is terribly reliable. PHYSICAL EXAMINATION: GENERAL: Reveals a male who is in no acute distress, on oxygen. VITAL SIGNS: He is afebrile. His heart rate is 110 per minute and regular. His respiratory rate is 20 per minute and nonlabored on oxygen. His oxygen saturation is 94% on 4 liters of oxygen. Blood pressure is 122/71. On admission, his blood pressure was 76/43. HEENT: Unremarkable. NECK: There is no JVD or lymphadenopathy. CHEST: He has equal breath sounds without rales, rhonchi, wheezes, or rubs. CARDIOVASCULAR: He is tachycardic with an S1 and S2. I do not appreciate any murmurs. ABDOMEN: Soft without masses. EXTREMITIES: He has pretibial edema. NEUROLOGIC: He is alert and responsive to questions, although he appears to forget a fair amount. LABORATORY DATA: His latest hemoglobin after transfusion is 8.6. It was 6.0 on admission. He had the CTA of the chest done earlier today that was significant for bilateral pulmonary emboli and lung mass. IMPRESSION: 1. Pulmonary embolism and deep venous thrombosis. 2. Significant gastrointestinal bleed. 3. Metastatic lung cancer. 4. Pathological femur fracture. PLAN: I discussed all the above with the patient and his family. Because of the significant life threatening GI bleed, I would not systemically anticoagulate this gentleman. Obviously, this is a difficult decision. He has had the IVC filter placed. Treatment of his pathological fracture would be per the orthopedic service. I would continue his supportive oxygen therapy, which is adequate at this point in time. Thank you for consulting on this very nice gentleman. His case is obviously difficult. I have discussed the recommendation not to anticoagulate him with Dr. Painting. If you have any questions, please do not hesitate to contact me. SVETLANA SAUCEDA MD DR: RADHA/nts JOB#: [id number] / [id number]
[2019-08-03] MEDS ORDERED: [UNRECOGNIZED DRUG - REMARK] INT ART ONE ×4 (16:00)
[2019-08-03] MEDS ORDERED: ESMOLOL 100 MG/10 ML VIAL. IVP ONE (16:35)
[2019-08-03] MEDS ORDERED: PHENYLEPHRINE 10 MG/ML VIAL. ONE ×2 (16:49→18:47)
--- NOTE | 2019-08-03 18:20 | PDOC4 ---
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, left femur, initial encounter for fracture Post-Op Diagnosis: same Procedure: * CPT 97298 left hip treatment of intertrochanteric femoral fracture with intramedullary implant, with interlocking screws Surgeon: Theresa Eduardo MD Card Puncher: DIANE Crum Anesthesia Type: General EBL: 700 mL Fluids: 2u PRBCs, 2200 crystalloid Specimens Obtained: none Complications: none Implants: [place] Gamma 3 system Long Nail Kit R1.5 left 13 mm x 440 mm x 130 Gamma 3 system Lag Screw Titanium 10.5 mm x100 mm; locking screw fully threaded 5 mm x 50 mm, locking screw fully threaded 5 mm x 55 mm INDICATION FOR PROCEDURE: This patient is 59 years old, and was admitted with metastatic lung cancer and a pathologic left hip fracture. X-rays show an unstable subtrochanteric hip fracture with metastatic neoplasm. The patient, the patient's family, and I discussed the risks, benefits and alternatives of treatment. The alternative for treatment is bedrest, which did not seem appropriate and they are seeking aggressive care of his disease at this time. I recommended intramedullary nailing, and I talked to them about the potential risks of this, including bleeding, infection, blood clots, malunion, nonunion or other potential surgical or anesthetic complications. All of their questions about surgery were answered, and they desired to proceed. A written consent was obtained. PROCEDURE IN DETAIL: The patient was identified in the preoperative holding area. The correct left hip was marked by me. The patient was taken to the operating room, where the patient was anesthetized by the Department of Anesthesia. Preoperative antibiotics were given intravenously. The HANA table was used and the well leg was placed in a padded lithotomy leg lindsey while the foot of the left leg was placed in a traction foot boot. A time-out procedure was performed. The image intensifier was used, and a preliminary reduction performed. All of the images were interpreted intraoperatively by me, and the image intensifier was used throughout the case. The left hip area was prepared in sterile fashion with ChloraPrep solution and a sterile barrier Ioban hip drape was used. An incision was made over the superior aspect of the greater trochanter. A 3.2 mm guide pin was placed at the tip of the greater trochanter, and advanced into the intramedullary canal. The one step conical reamer was used over the guidewire, and a reamer sleeve was used to protect the soft tissues. A long guide pin was used, but was difficult to pass partly due to the body habitus, partly due to the short proximal segment which allowed the wire to escape medially, and partly due to the tumor mass which prevented passage of the guidewire into the distal segment. I tried several techniques to redirect the guidewire such as Shanz pins used as joysticks, manipulation of the HANA table traction alignment, and the guidewire assist device, none of which could redirect the wire past the tumor mass into the distal intramedullary canal. Ultimately I made the second incision which is going to be used later for the passage of the lag screw into the head. I used a bone hook to redirect the guidewire laterally into the distal segment. The guidewire was now advanced to just above the knee joint. Measurement was taken. The nail length was chosen based on that measurement. I made sure the fracture was reduced with traction while the reaming was performed. The canal was sequentially reamed for a long nail until intramedullary chatter occurred. The nail diameter was chosen based on the intramedullary chatter. The chosen nail was attached to the targeting device with the Nail Holding Screw. The nail was placed down the canal on the targeting device, and the guide wire was removed. The second incision was now used again, over the lower part of the greater trochanter, to place a guide pin through the guide, near the center-center position of the femoral head, and measured. The tunnel for the lag screw was reamed using the cannulated Lag Screw Step Drill. The chosen lag screw was inserted using the guide and advanced until there was a low tip-apex distance, by using sequential checks on the image intensifier. Traction on the HANA table was released. A Set Screw was now placed to lock the Lag Screw. Finally, two 5.0 mm diameter Distal Cross Lock Screws were placed distally near the knee, using a freehand technique and the image intensifier, after predrilling. Satisfactory fracture reduction and hardware position was obtained using image intensifier views in multiple planes. Bovie electrocautery was used for hemostasis. Copious saline irrigation was used. The fascia was closed with #1 PDS. I used a multidrug injection for hemostasis and pain relief which includes ropivacaine, epinephrine, and morphine. My commercial lending assistant completed the closure with 2-0 PDS and vikram. A bulky sterile dressing was applied. The patient was gently transferred from the fracture table back to an ICU bed and the plan is that he will return to the ICU intubated. There were no apparent complications. THERESA EDUARDO MD Aug 03, 2019 18:20
[2019-08-03] MEDS ORDERED: PROPOFOL 100 ML IV ONE (18:30)
[2019-08-03] MEDS: PROPOFOL 100 ML IV PRN ×2 (18:43→22:22)
[2019-08-03] MEDS ORDERED: SEVOFLURANE > 120 MINUTES. IH ONE (18:50)
[2019-08-03 19:45] LABS: CALCIUM 7.4 mg/dL (8.5-10.1); CREATININE 0.7 mg/dL (0.7-1.3); GFR 115.4; POTASSIUM 3.5 mmol/L (3.5-5.1)
[2019-08-03 19:55] LABS: BASE EXCESS ABG -4 mmol/L (-3-3); FIO2 ABG 60; HCO3 ABG 23 mmol/L (21-28); PCO2 ABG 50 mmHg (35-46); PO2 ABG 77 mmHg (65-108); SAT O2 ABG 93 % (92-99)
--- NOTE | 2019-08-03 20:52 | RAD ---
AP chest x-ray HISTORY: Endotracheal tube placement. COMPARISON: CT chest August 21, 2019 FINDINGS: Endotracheal tube tip 7 cm above the sundeep. Left subclavian portacatheter tip right atrium. Nasogastric tube tip left upper quadrant abdomen region of the stomach. Heart size stable. Hilar enlargement from adenopathy on prior chest imaging. 4 cm left upper lobe apical mass. Ill-defined left extrapleural mass associated with the left lateral second rib which is rotated as on prior CT imaging. No pneumothorax. Mild elevation right diaphragm with right lower lobe atelectasis stable. No pleural effusions. IMPRESSION: Lines and tubes as described above. Left apical upper lobe mass, left second rib bony and extrapleural soft tissue mass, and hilar adenopathy again demonstrated. Mild elevation right diaphragm and mild right lower lobe atelectasis, stable. AP abdomen x-ray HISTORY: Orogastric tube placement. FINDINGS: IVC filter right of the L2 lumbar vertebra. Nasogastric tube tip projects left upper quadrant region of the gastric fundus. Mild gas and stool within the large bowel. No dilated small bowel loops. Lower abdomen and pelvis the left flank outside the [id number]. Bones are unremarkable. IMPRESSION: Nasogastric based. No bowel obstruction. Electronically signed by: Titus Singh MD (08/03/2019 8:49 PM) [facility]
--- NOTE | 2019-08-03 20:52 | RAD ---
AP chest x-ray HISTORY: Endotracheal tube placement. COMPARISON: CT chest August 21, 2019 FINDINGS: Endotracheal tube tip 7 cm above the sundeep. Left subclavian portacatheter tip right atrium. Nasogastric tube tip left upper quadrant abdomen region of the stomach. Heart size stable. Hilar enlargement from adenopathy on prior chest imaging. 4 cm left upper lobe apical mass. Ill-defined left extrapleural mass associated with the left lateral second rib which is rotated as on prior CT imaging. No pneumothorax. Mild elevation right diaphragm with right lower lobe atelectasis stable. No pleural effusions. IMPRESSION: Lines and tubes as described above. Left apical upper lobe mass, left second rib bony and extrapleural soft tissue mass, and hilar adenopathy again demonstrated. Mild elevation right diaphragm and mild right lower lobe atelectasis, stable. AP abdomen x-ray HISTORY: Orogastric tube placement. FINDINGS: IVC filter right of the L2 lumbar vertebra. Nasogastric tube tip projects left upper quadrant region of the gastric fundus. Mild gas and stool within the large bowel. No dilated small bowel loops. Lower abdomen and pelvis the left flank outside the [id number]. Bones are unremarkable. IMPRESSION: Nasogastric based. No bowel obstruction. Electronically signed by: Titus Singh MD (08/03/2019 8:49 PM) [facility]
[2019-08-03 21:00] LABS: HEMOGLOBIN 10.5 g/dL (13.0-17.5)
[2019-08-03] MEDS: ceFAZolin SODIUM 3 GM in IV DEXTROSE 5% 100ML 100 ML IV SCH (22:58)
[2019-08-04] VITALS (24 sets, daily range): BP systolic 66–137; BP diastolic 42–93
[2019-08-04] MEDS: NOREPINEPHRIN 8MG/250ML PREMIX 250 ML IV PRN ×4 (01:09→17:41)
[2019-08-04] MEDS: PROPOFOL 100 ML IV PRN ×2 (01:36→06:37)
[2019-08-04] MEDS: IV NORMAL SALINE 1000ML BAG 1,000 ML IV SCH (06:01)
[2019-08-04 06:34] LABS: BASO % 0 % (0-3); EOS % 0 % (0-3); HEMATOCRIT 30.9 % (39.0-53.0); HEMOGLOBIN 10.3 g/dL (13.0-17.5); LYMPH # 0.5 x10^3/uL (1.0-4.8); LYMPH % 8 % (24-48); MEAN CORPUSCULAR HEMOGLOBIN 30 pg (25-35); MEAN CORPUSCULAR HGB CONC 33 g/dL (31-37); MEAN CORPUSCULAR VOLUME 89 fL (79-100); MONO # 0.3 x10^3/uL (0.0-1.1); MONO % 5 % (0-9); NEUT # 5.4 x10^3/uL (1.8-7.7); NEUT % 87 % (31-73); PLATELET COUNT 184 x10^3/uL (140-400); RED BLOOD COUNT 3.48 x10^6/uL (4.30-5.70); RED CELL DISTRIBUTION WIDTH 15.4 % (11.5-14.5); WHITE BLOOD COUNT 6.3 x10^3/uL (4.0-11.0)
[2019-08-04] MEDS: ceFAZolin SODIUM 3 GM in IV DEXTROSE 5% 100ML 100 ML IV SCH ×2 (06:37→14:23)
[2019-08-04 06:38] LABS: ALBUMIN 1.2 g/dL (3.4-5.0); ALBUMIN/GLOBULIN RATIO 0.3 (1.0-1.7); CALCIUM 7.3 mg/dL (8.5-10.1); CREATININE 0.7 mg/dL (0.7-1.3); GFR 115.4; POTASSIUM 3.3 mmol/L (3.5-5.1); TOTAL BILIRUBIN 0.5 mg/dL (0.2-1.0); TOTAL PROTEIN 4.8 g/dL (6.4-8.2)
--- NOTE | 2019-08-04 08:03 | PDOC ---
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 He was recently in [facility]. Approximately 1 week ago, he had a significant GI bleed that required endoscopic treatment. He was then transferred to [facility]. He was admitted yesterday to [facility] with a pathological femoral fracture and significant anemia with hypotension. He recently received an inferior vena cava filter at [facility]. In the evaluation of his femoral fracture, it was discovered that he had deep venous thrombosis in the legs and subsequently a CTA of the chest revealed that he had extensive pulmonary emboli. He has been treated with radiation to the brain as well as bone radiation and treatment with Keytruda. He underwent operative repair of femur last evening. Overnight he has been intubated and sedated and given opiodes for pain. He has been stable. Vitals Vital Signs Date Time Temp Pulse Resp B/P (MAP) Pulse Ox O2 Delivery O2 Flow Rate FiO2 08/04/19 06:00 109 16 112/62 (79) 100 Ventilator 08/04/19 04:00 98.8 98.8 08/03/19 18:40 4.0 Comments ROS unobtainable. Lungs: Clear Cardiovascular: S1, S2 Abdomen: Soft, Non-tender Skin: Warm Labs Laboratory Tests Test 08/02/19 16:17 08/02/19 20:15 08/02/19 22:40 08/03/19 06:00 White Blood Count 6.8 x10^3/uL (4.0-11.0) 8.5 x10^3/uL (4.0-11.0) 6.9 x10^3/uL (4.0-11.0) Red Blood Count 1.99 x10^6/uL (4.30-5.70) 2.98 x10^6/uL (4.30-5.70) 2.94 x10^6/uL (4.30-5.70) Hemoglobin 6.0 g/dL (13.0-17.5) 8.8 g/dL (13.0-17.5) 8.6 g/dL (13.0-17.5) Hematocrit 18.1 % (39.0-53.0) 26.4 % (39.0-53.0) 26.0 % (39.0-53.0) Mean Corpuscular Volume 91 fL (79-100) 89 fL (79-100) 89 fL (79-100) Mean Corpuscular Hemoglobin 30 pg (25-35) 30 pg (25-35) 29 pg (25-35) Mean Corpuscular Hemoglobin Concent 33 g/dL (31-37) 33 g/dL (31-37) 33 g/dL (31-37) Red Cell Distribution Width 15.1 % (11.5-14.5) 15.0 % (11.5-14.5) 15.3 % (11.5-14.5) Platelet Count 152 x10^3/uL (140-400) 178 x10^3/uL (140-400) 185 x10^3/uL (140-400) Neutrophils (%) (Auto) 83 % (31-73) 84 % (31-73) 82 % (31-73) Lymphocytes (%) (Auto) 11 % (24-48) 9 % (24-48) 10 % (24-48) Monocytes (%) (Auto) 7 % (0-9) 7 % (0-9) 7 % (0-9) Eosinophils (%) (Auto) 0 % (0-3) 0 % (0-3) 0 % (0-3) Basophils (%) (Auto) 0 % (0-3) 0 % (0-3) 1 % (0-3) Neutrophils # (Auto) 5.6 x10^3/uL (1.8-7.7) 7.1 x10^3/uL (1.8-7.7) 5.6 x10^3/uL (1.8-7.7) Lymphocytes # (Auto) 0.7 x10^3/uL (1.0-4.8) 0.7 x10^3/uL (1.0-4.8) 0.7 x10^3/uL (1.0-4.8) Monocytes # (Auto) 0.4 x10^3/uL (0.0-1.1) 0.6 x10^3/uL (0.0-1.1) 0.5 x10^3/uL (0.0-1.1) Eosinophils # (Auto) 0.0 x10^3/uL (0.0-0.7) 0.0 x10^3/uL (0.0-0.7) 0.0 x10^3/uL (0.0-0.7) Basophils # (Auto) 0.0 x10^3/uL (0.0-0.2) 0.0 x10^3/uL (0.0-0.2) 0.1 x10^3/uL (0.0-0.2) Segmented Neutrophils % 78 % (35-66) Band Neutrophils % 10 % (0-9) Lymphocytes % 9 % (24-48) Monocytes % 3 % (0-10) Nucleated Red Blood Cells 4 Toxic Granulation Slight Dohle Bodies Few Platelet Estimate Adequate (ADEQUATE) Polychromasia Mod Anisocytosis Slight Prothrombin Time 17.1 SEC (11.7-14.0) Prothromb Time International Ratio 1.4 (0.8-1.1) Activated Partial Thromboplast Time 37 SEC (24-38) Sodium Level 139 mmol/L (136-145) 143 mmol/L (136-145) Potassium Level 3.4 mmol/L (3.5-5.1) 2.7 mmol/L (3.5-5.1) Chloride Level 103 mmol/L (98-107) 106 mmol/L (98-107) Carbon Dioxide Level 29 mmol/L (21-32) 27 mmol/L (21-32) Anion Gap 7 (6-14) 10 (6-14) Blood Urea Nitrogen 13 mg/dL (8-26) 10 mg/dL (8-26) Creatinine 1.2 mg/dL (0.7-1.3) 0.8 mg/dL (0.7-1.3) Estimated GFR (Cockcroft-Gault) 62.0 98.9 BUN/Creatinine Ratio 11 (6-20) Glucose Level 119 mg/dL (70-99) 171 mg/dL (70-99) Lactic Acid Level 2.8 mmol/L (0.4-2.0) 1.3 mmol/L (0.4-2.0) Calcium Level 7.9 mg/dL (8.5-10.1) 8.2 mg/dL (8.5-10.1) Magnesium Level 1.4 mg/dL (1.8-2.4) Total Bilirubin 0.4 mg/dL (0.2-1.0) Aspartate Amino Transf (AST/SGOT) 26 U/L (15-37) Alanine Aminotransferase (ALT/SGPT) 24 U/L (16-63) Alkaline Phosphatase 107 U/L (46-116) Creatine Kinase 76 U/L (39-308) Troponin I Quantitative 0.168 ng/mL (0.000-0.055) 0.055 ng/mL (0.000-0.055) KB-Rrp-L-Type Natriuretic Peptide 1496 pg/mL (0-124) Total Protein 4.8 g/dL (6.4-8.2) Albumin 1.0 g/dL (3.4-5.0) Albumin/Globulin Ratio 0.3 (1.0-1.7) Lipase 35 U/L (73-393) Iron Level 24 ug/dL (65-175) Total Iron Binding Capacity 96 ug/dL (250-450) Iron Saturation 25 % (15-34) Ferritin 2639 ng/mL (26-388) Test 08/03/19 19:20 08/03/19 19:43 08/04/19 06:00 Hemoglobin 10.5 g/dL (13.0-17.5) 10.3 g/dL (13.0-17.5) Hematocrit 32.0 % (39.0-53.0) 30.9 % (39.0-53.0) Mean Corpuscular Hemoglobin Concent 33 g/dL (31-37) 33 g/dL (31-37) Sodium Level 148 mmol/L (136-145) 150 mmol/L (136-145) Potassium Level 3.5 mmol/L (3.5-5.1) 3.3 mmol/L (3.5-5.1) Chloride Level 112 mmol/L (98-107) 113 mmol/L (98-107) Carbon Dioxide Level 25 mmol/L (21-32) 24 mmol/L (21-32) Anion Gap 11 (6-14) 13 (6-14) Blood Urea Nitrogen 9 mg/dL (8-26) 8 mg/dL (8-26) Creatinine 0.7 mg/dL (0.7-1.3) 0.7 mg/dL (0.7-1.3) Estimated GFR (Cockcroft-Gault) 115.4 115.4 Glucose Level 185 mg/dL (70-99) 163 mg/dL (70-99) Calcium Level 7.4 mg/dL (8.5-10.1) 7.3 mg/dL (8.5-10.1) O2 Saturation 93 % (92-99) Arterial Blood pH 7.29 (7.35-7.45) Arterial Blood pCO2 at Patient Temp 50 mmHg (35-46) Arterial Blood pO2 at Patient Temp 77 mmHg (65-108) Arterial Blood HCO3 23 mmol/L (21-28) Arterial Blood Base Excess -4 mmol/L (-3-3) FiO2 60 White Blood Count 6.3 x10^3/uL (4.0-11.0) Red Blood Count 3.48 x10^6/uL (4.30-5.70) Mean Corpuscular Volume 89 fL (79-100) Mean Corpuscular Hemoglobin 30 pg (25-35) Red Cell Distribution Width 15.4 % (11.5-14.5) Platelet Count 184 x10^3/uL (140-400) Neutrophils (%) (Auto) 87 % (31-73) Lymphocytes (%) (Auto) 8 % (24-48) Monocytes (%) (Auto) 5 % (0-9) Eosinophils (%) (Auto) 0 % (0-3) Basophils (%) (Auto) 0 % (0-3) Neutrophils # (Auto) 5.4 x10^3/uL (1.8-7.7) Lymphocytes # (Auto) 0.5 x10^3/uL (1.0-4.8) Monocytes # (Auto) 0.3 x10^3/uL (0.0-1.1) Eosinophils # (Auto) 0.0 x10^3/uL (0.0-0.7) Basophils # (Auto) 0.0 x10^3/uL (0.0-0.2) BUN/Creatinine Ratio 11 (6-20) Total Bilirubin 0.5 mg/dL (0.2-1.0) Aspartate Amino Transf (AST/SGOT) 41 U/L (15-37) Alanine Aminotransferase (ALT/SGPT) 25 U/L (16-63) Alkaline Phosphatase 124 U/L (46-116) Total Protein 4.8 g/dL (6.4-8.2) Albumin 1.2 g/dL (3.4-5.0) Albumin/Globulin Ratio 0.3 (1.0-1.7) Laboratory Tests Test 08/03/19 19:20 08/03/19 19:43 08/04/19 06:00 Hemoglobin 10.5 g/dL (13.0-17.5) 10.3 g/dL (13.0-17.5) Hematocrit 32.0 % (39.0-53.0) 30.9 % (39.0-53.0) Mean Corpuscular Hemoglobin Concent 33 g/dL (31-37) 33 g/dL (31-37) Sodium Level 148 mmol/L (136-145) 150 mmol/L (136-145) Potassium Level 3.5 mmol/L (3.5-5.1) 3.3 mmol/L (3.5-5.1) Chloride Level 112 mmol/L (98-107) 113 mmol/L (98-107) Carbon Dioxide Level 25 mmol/L (21-32) 24 mmol/L (21-32) Anion Gap 11 (6-14) 13 (6-14) Blood Urea Nitrogen 9 mg/dL (8-26) 8 mg/dL (8-26) Creatinine 0.7 mg/dL (0.7-1.3) 0.7 mg/dL (0.7-1.3) Estimated GFR (Cockcroft-Gault) 115.4 115.4 Glucose Level 185 mg/dL (70-99) 163 mg/dL (70-99) Calcium Level 7.4 mg/dL (8.5-10.1) 7.3 mg/dL (8.5-10.1) O2 Saturation 93 % (92-99) Arterial Blood pH 7.29 (7.35-7.45) Arterial Blood pCO2 at Patient Temp 50 mmHg (35-46) Arterial Blood pO2 at Patient Temp 77 mmHg (65-108) Arterial Blood HCO3 23 mmol/L (21-28) Arterial Blood Base Excess -4 mmol/L (-3-3) FiO2 60 White Blood Count 6.3 x10^3/uL (4.0-11.0) Red Blood Count 3.48 x10^6/uL (4.30-5.70) Mean Corpuscular Volume 89 fL (79-100) Mean Corpuscular Hemoglobin 30 pg (25-35) Red Cell Distribution Width 15.4 % (11.5-14.5) Platelet Count 184 x10^3/uL (140-400) Neutrophils (%) (Auto) 87 % (31-73) Lymphocytes (%) (Auto) 8 % (24-48) Monocytes (%) (Auto) 5 % (0-9) Eosinophils (%) (Auto) 0 % (0-3) Basophils (%) (Auto) 0 % (0-3) Neutrophils # (Auto) 5.4 x10^3/uL (1.8-7.7) Lymphocytes # (Auto) 0.5 x10^3/uL (1.0-4.8) Monocytes # (Auto) 0.3 x10^3/uL (0.0-1.1) Eosinophils # (Auto) 0.0 x10^3/uL (0.0-0.7) Basophils # (Auto) 0.0 x10^3/uL (0.0-0.2) BUN/Creatinine Ratio 11 (6-20) Total Bilirubin 0.5 mg/dL (0.2-1.0) Aspartate Amino Transf (AST/SGOT) 41 U/L (15-37) Alanine Aminotransferase (ALT/SGPT) 25 U/L (16-63) Alkaline Phosphatase 124 U/L (46-116) Total Protein 4.8 g/dL (6.4-8.2) Albumin 1.2 g/dL (3.4-5.0) Albumin/Globulin Ratio 0.3 (1.0-1.7) Comments CXR unchanged except for tubes Impression . 1. Acute Respiratory Failure 2. Metastatic squamous cell lung cancer 3. Pulmonary emboli 4. Recent GI bleed with anemia 5. Pathological femur fracture, s/p repair Plan . Will hold sedation and opiode. Will wean FiO2 and pressor. Will assess for extubation. SVETLANA SAUCEDA MD Aug 04, 2019 08:03
[2019-08-04] MEDS: fentaNYL PF VIAL 100 MCG/2 ML VIAL IVP PRN ×6 (08:24→22:18)
[2019-08-04 08:55] LABS: BASE EXCESS ABG -1 mmol/L (-3-3); HCO3 ABG 22 mmol/L (21-28); PCO2 ABG 31 mmHg (35-46); PO2 ABG 72 mmHg (65-108); SAT O2 ABG 94 % (92-99)
[2019-08-04 10:25] LABS: % BANDS 20 % (0-9); % LYMPHS 4 % (24-48); % MONOS 3 % (0-10); % SEGS 73 % (35-66); ANISOCYTOSIS SLIGHT; NUCLEATED RBC 14; PLT ESTIMATE ADEQUATE (ADEQUATE)
[2019-08-04 10:26] LABS: POLYCHROMASIA PRESENT
[2019-08-04] MEDS ORDERED: POTASSIUM CHL 20MEQ PREMIX 50 ML IV ONE (10:30)
--- NOTE | 2019-08-04 10:30 | PDOC ---
PROGRESS NOTES Subjective Subjective seen in ICU,just got extubated Objective Objective Vital Signs Date Time Temp Pulse Resp B/P (MAP) Pulse Ox O2 Delivery O2 Flow Rate FiO2 08/04/19 10:00 120 35 102/76 (85) 93 Nasal Cannula 5.0 08/04/19 08:00 98.5 98.5 Intake and Output 08/04/19 07:00 Intake Total 4361.5 ml Output Total 4605 ml Balance -243.5 ml Intake Oral 0 ml IV Total 4361.5 ml Output Urine Total 3905 ml Estimated Blood Loss 700 ml Physical Exam Abdomen: Soft Heart: Regular rate Extremities: Other (LLE is shortened and externally rotated. The skin is intact over the fracture. There is tenderness of the proximal femur. He can dorsiflex and plantar flex the toes and has intact pulses and sensation distally.) General: Alert, Cooperative HEENT: Atraumatic Lungs: Other (O2 4L NC 95% sat, no cyanosis, able to converse without difficulty) MUSCULOSKELETAL: Abnormal exam of right (thigh and calf, tender to palpation consistent with DVT. Diffuse swelling. Pulses intact. Motor intact.), Abn muscle strength of (right arm recent paralysis episode. Left arm has full ROM, without malalignment deformity or tenderness) Neck: Supple Neuro: Normal tone, Sensation intact Skin: No significant lesion Diagnosis Problem List Problems Medical Problems: (1) Anemia Status: Acute (2) Hypertension Status: Acute (3) Metastatic lung cancer (metastasis from lung to other site) Status: Acute (4) Sepsis Status: Acute Assessment Assessment Problems Medical Problems: (1) Anemia Status: Acute (2) Hypertension Status: Acute (3) Metastatic lung cancer (metastasis from lung to other site) Status: Acute (4) Sepsis Status: Acute FINAL IMPRESSION: 1. Pathological fracture of the left femur. 2. Lung cancer with metastasis, squamous cell.stage 4. 3. Deep venous thrombosis, right leg. 4. Anemia requiring transfusion. 5. Hypotension. 6. History of lung cancer with metastasis to the brain and to the lumbar spine, had a chemo as well as radiation treatment. 5. Supraventricular tachycardia, heart rate around 140, probably multiple factors, slight bump in troponin 0.1. 6.Brain and spine mets s/p radaition PLAN: POD #1 S/P femur surgery, nailing. dvt leg s/p IVC filter. PE not a cadidate for anticoagulation due to gi bleed. hypotension on Levophed. extubated this morning iv fluids . recent chemo.[facility] 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, left femur, initial encounter for fracture Post-Op Diagnosis: same Procedure: * CPT 88834 left hip treatment of intertrochanteric femoral fracture with intramedullary implant, with interlocking screws Surgeon: Imtiaz Eduardo MD Contract Clerk [employer]: DIANE [employer]rum Anesthesia Type: General EBL: 700 mL Fluids: 2u PRBCs, 2200 crystalloid Specimens Obtained: none Complications: none Plan Plan of Care Problems Medical Problems: (1) Anemia Status: Acute (2) Hypertension Status: Acute (3) Metastatic lung cancer (metastasis from lung to other site) Status: Acute (4) Sepsis Status: Acute Comment Review of Relevant I have reviewed the following items candida (where applicable) has been applied. Labs Laboratory Tests Test 08/03/19 19:20 08/03/19 19:43 08/04/19 06:00 Hemoglobin 10.5 g/dL (13.0-17.5) 10.3 g/dL (13.0-17.5) Hematocrit 32.0 % (39.0-53.0) 30.9 % (39.0-53.0) Mean Corpuscular Hemoglobin Concent 33 g/dL (31-37) 33 g/dL (31-37) Sodium Level 148 mmol/L (136-145) 150 mmol/L (136-145) Potassium Level 3.5 mmol/L (3.5-5.1) 3.3 mmol/L (3.5-5.1) Chloride Level 112 mmol/L (98-107) 113 mmol/L (98-107) Carbon Dioxide Level 25 mmol/L (21-32) 24 mmol/L (21-32) Anion Gap 11 (6-14) 13 (6-14) Blood Urea Nitrogen 9 mg/dL (8-26) 8 mg/dL (8-26) Creatinine 0.7 mg/dL (0.7-1.3) 0.7 mg/dL (0.7-1.3) Estimated GFR (Cockcroft-Gault) 115.4 115.4 Glucose Level 185 mg/dL (70-99) 163 mg/dL (70-99) Calcium Level 7.4 mg/dL (8.5-10.1) 7.3 mg/dL (8.5-10.1) O2 Saturation 93 % (92-99) Arterial Blood pH 7.29 (7.35-7.45) Arterial Blood pCO2 at Patient Temp 50 mmHg (35-46) Arterial Blood pO2 at Patient Temp 77 mmHg (65-108) Arterial Blood HCO3 23 mmol/L (21-28) Arterial Blood Base Excess -4 mmol/L (-3-3) FiO2 60 White Blood Count 6.3 x10^3/uL (4.0-11.0) Red Blood Count 3.48 x10^6/uL (4.30-5.70) Mean Corpuscular Volume 89 fL (79-100) Mean Corpuscular Hemoglobin 30 pg (25-35) Red Cell Distribution Width 15.4 % (11.5-14.5) Platelet Count 184 x10^3/uL (140-400) Neutrophils (%) (Auto) 87 % (31-73) Lymphocytes (%) (Auto) 8 % (24-48) Monocytes (%) (Auto) 5 % (0-9) Eosinophils (%) (Auto) 0 % (0-3) Basophils (%) (Auto) 0 % (0-3) Neutrophils # (Auto) 5.4 x10^3/uL (1.8-7.7) Lymphocytes # (Auto) 0.5 x10^3/uL (1.0-4.8) Monocytes # (Auto) 0.3 x10^3/uL (0.0-1.1) Eosinophils # (Auto) 0.0 x10^3/uL (0.0-0.7) Basophils # (Auto) 0.0 x10^3/uL (0.0-0.2) Segmented Neutrophils % 73 % (35-66) Band Neutrophils % 20 % (0-9) Lymphocytes % 4 % (24-48) Monocytes % 3 % (0-10) Nucleated Red Blood Cells 14 Platelet Estimate Adequate (ADEQUATE) Large Platelets Few Polychromasia Present Anisocytosis Slight BUN/Creatinine Ratio 11 (6-20) Total Bilirubin 0.5 mg/dL (0.2-1.0) Aspartate Amino Transf (AST/SGOT) 41 U/L (15-37) Alanine Aminotransferase (ALT/SGPT) 25 U/L (16-63) Alkaline Phosphatase 124 U/L (46-116) Total Protein 4.8 g/dL (6.4-8.2) Albumin 1.2 g/dL (3.4-5.0) Albumin/Globulin Ratio 0.3 (1.0-1.7) Microbiology 08/02/19 Blood Culture - Preliminary, Resulted NO GROWTH AFTER 1 DAY Medications Current Medications Cefazolin Sodium 3 gm/Dextrose 100 ml @ 200 mls/hr 1X PREOP PRN IV PRIOR TO PROCEDURE; Start 08/03/19 at 14:00; Stop 08/03/19 at 18:00; Status DC Cefazolin Sodium 3 gm/Dextrose 100 ml @ 200 mls/hr Q8H IV Last administered on 08/04/19at 06:37; Start 08/03/19 at 23:00; Stop 08/04/19 at 15:29 Dexamethasone Sodium Phosphate (Decadron) 4 mg STK-MED ONCE .ROUTE ; Start 08/03/19 at 14:37; Stop 08/03/19 at 14:37; Status DC Esmolol HCl (Brevibloc) 100 mg STK-MED ONCE IVP ; Start 08/03/19 at 16:35; Stop 08/03/19 at 16:35; Status DC Etomidate (Amidate) 20 mg STK-MED ONCE IV ; Start 08/03/19 at 14:37; Stop 08/03/19 at 14:37; Status DC Famotidine (Pepcid Vial) 20 mg BID IVP ; Start 08/04/19 at 10:00 Fentanyl Citrate 30 ml @ 0 mls/hr CONT PRN IV SEE PROTOCOL Last administered on 08/04/19at 01:45; Start 08/03/19 at 20:00 Fentanyl Citrate (Fentanyl 2ml Vial) 100 mcg STK-MED ONCE .ROUTE ; Start 08/03/19 at 14:36; Stop 08/03/19 at 14:37; Status DC Info (CONTRAST GIVEN -- Rx MONITORING) 1 each PRN DAILY PRN MC SEE COMMENTS; Start 08/03/19 at 11:30; Stop 08/05/19 at 11:29 Iohexol (Omnipaque 350 Mg/ml) 100 ml 1X ONCE IV Last administered on 08/03/19at 11:30; Start 08/03/19 at 11:30; Stop 08/03/19 at 11:31; Status DC Magnesium Sulfate 50 ml @ 25 mls/hr 1X ONCE IV Last administered on 08/03/19at 10:29; Start 08/03/19 at 11:00; Stop 08/03/19 at 12:59; Status DC Ondansetron HCl (Zofran) 4 mg STK-MED ONCE .ROUTE ; Start 08/03/19 at 14:37; Stop 08/03/19 at 14:37; Status DC Phenylephrine HCl (Italo-Synephrine Inj) 10 mg STK-MED ONCE .ROUTE ; Start 08/03/19 at 16:49; Stop 08/03/19 at 16:49; Status DC Phenylephrine HCl (Italo-Synephrine Inj) 10 mg STK-MED ONCE .ROUTE ; Start 08/03/19 at 18:47; Stop 08/03/19 at 18:47; Status DC Phenylephrine HCl (PHENYLEPHRINE in 0.9% NACL PF) 1 mg STK-MED ONCE IV ; Start 08/03/19 at 15:48; Stop 08/03/19 at 15:49; Status DC Phenylephrine HCl (PHENYLEPHRINE in 0.9% NACL PF) 1 mg STK-MED ONCE IV ; Start 08/03/19 at 15:48; Stop 08/03/19 at 15:49; Status DC Propofol 100 ml @ 2.123 mls/ hr CONT PRN IV SEE I/O RECORD Last administered on 08/04/19at 06:37; Start 08/03/19 at 18:45 Propofol 100 ml @ As Directed STK-MED ONCE IV ; Start 08/03/19 at 18:30; Stop 08/03/19 at 18:31; Status DC Rocuronium Warren (Zemuron) 50 mg STK-MED ONCE .ROUTE ; Start 08/03/19 at 14:36; Stop 08/03/19 at 14:37; Status DC Rocuronium Warren (Zemuron) 50 mg STK-MED ONCE .ROUTE ; Start 08/03/19 at 15:39; Stop 08/03/19 at 15:39; Status DC Ropivacaine 53.3 ml/Epinephrine HCl 0.6 mg/ Morphine Sulfate 5 mg/Sodium Chloride 100 ml @ 100 mls/hr 1X ONCE INT ART Last administered on 08/03/19at 15:51; Start 08/03/19 at 16:00; Stop 08/03/19 at 16:59; Status DC Sevoflurane (Ultane) 90 ml STK-MED ONCE IH ; Start 08/03/19 at 18:50; Stop 08/03/19 at 18:51; Status DC Vitals/I & O Vital Sign - Last 24 Hours 08/03/19 08/03/19 08/03/19 08/03/19 10:45 10:48 11:00 11:15 Pulse 122 122 118 Resp 22 13 18 21 B/P (MAP) 146/78 (100) 127/63 (84) 124/66 (85) Pulse Ox 93 92 94 94 O2 Delivery Nasal Cannula Room Air Nasal Cannula Nasal Cannula O2 Flow Rate 4.0 4.0 4.0 08/03/19 08/03/19 08/03/19 08/03/19 11:45 12:00 12:00 12:30 Temp 98.5 98.5 Pulse 122 112 110 Resp 24 32 18 B/P (MAP) 121/68 (85) 151/70 (97) 133/72 (92) Pulse Ox 97 96 95 O2 Delivery Nasal Cannula Nasal Cannula Nasal Cannula Nasal Cannula O2 Flow Rate 4.0 4.0 4.0 4.0 08/03/19 08/03/19 08/03/19 08/03/19 12:45 13:00 14:00 15:00 Pulse 112 110 116 116 Resp 17 15 24 18 B/P (MAP) 135/68 (90) 137/46 (76) 122/71 (88) 141/69 (93) Pulse Ox 95 95 94 90 O2 Delivery Nasal Cannula Nasal Cannula Nasal Cannula Nasal Cannula O2 Flow Rate 4.0 4.0 4.0 4.0 08/03/19 08/03/19 08/03/19 08/03/19 18:21 18:21 18:35 18:40 Temp 97.4 97.4 97.4 97.4 Pulse 128 132 Resp 23 22 B/P (MAP) 121/67 113/83 Pulse Ox 95 94 98 O2 Delivery Ventilator Mechanical Ventilator Ventilator Ventilator 08/03/19 08/03/19 08/03/19 08/03/19 18:40 19:00 19:14 19:40 Temp 98.6 98.6 Pulse 120 Resp 17 16 B/P (MAP) 113/83 (93) Pulse Ox 96 60 96 O2 Delivery Mechanical Ventilator Ventilator Ventilator Ventilator O2 Flow Rate 4.0 08/03/19 08/03/19 08/03/19 08/03/19 19:44 20:00 20:00 21:00 Pulse 106 98 Resp 16 16 16 B/P (MAP) 90/45 (60) 91/54 (66) Pulse Ox 60 98 100 O2 Delivery Ventilator Mechanical Ventilator Ventilator Ventilator 08/03/19 08/03/19 08/03/19 08/03/19 21:35 22:00 23:00 23:53 Pulse 96 101 Resp 16 16 B/P (MAP) 115/66 (82) 112/63 (79) Pulse Ox 100 100 100 100 O2 Delivery Ventilator Ventilator Ventilator Ventilator 08/04/19 08/04/19 08/04/19 08/04/19 00:00 00:00 01:00 01:00 Temp 98.8 98.8 Pulse 98 104 107 Resp 16 16 16 B/P (MAP) 101/56 (71) 97/60 (72) 98/58 (71) Pulse Ox 100 100 100 O2 Delivery Ventilator Mechanical Ventilator Ventilator Ventilator 08/04/19 08/04/19 08/04/19 08/04/19 01:49 02:00 03:00 03:34 Pulse 104 103 Resp 16 16 B/P (MAP) 109/56 (73) 110/64 (79) Pulse Ox 98 100 100 100 O2 Delivery Ventilator Ventilator Ventilator Ventilator 08/04/19 08/04/19 08/04/19 08/04/19 04:00 04:00 05:00 05:51 Temp 98.8 98.8 Pulse 105 111 Resp 16 16 B/P (MAP) 104/64 (77) 97/64 (75) Pulse Ox 100 100 100 O2 Delivery Mechanical Ventilator Ventilator Ventilator Ventilator 08/04/19 08/04/19 08/04/19 08/04/19 06:00 07:00 08:00 08:00 Temp 98.5 98.5 Pulse 109 134 112 Resp 16 16 19 B/P (MAP) 112/62 (79) 110/69 (83) 116/81 (93) Pulse Ox 100 100 100 O2 Delivery Ventilator Ventilator Ventilator Mechanical Ventilator 08/04/19 08/04/19 09:00 10:00 Pulse 122 120 Resp 35 35 B/P (MAP) 137/93 (108) 102/76 (85) Pulse Ox 96 93 O2 Delivery Nasal Cannula Nasal Cannula O2 Flow Rate 5.0 5.0 Intake and Output 08/03/19 08/03/19 08/04/19 15:00 23:00 07:00 Intake Total 2500 ml 1861.5 ml Output Total 2860 ml 1250 ml 495 ml Balance -2860 ml 1250 ml 1366.5 ml BOB PHAN MD Aug 04, 2019 10:29
[2019-08-04] MEDS: FAMOTIDINE 20 MG/2 ML VIAL IVP SCH ×2 (11:04→22:18)
[2019-08-04] MEDS: POTASSIUM CL 20MEQ D5-0.45NACL 1,000 ML IV SCH ×2 (11:10→22:17)
--- NOTE | 2019-08-04 11:28 | PDOC ---
PROGRESS NOTES Subjective Subjective Extubation successful this morning at 9:30 AM. He looks well although he is delirious. Objective Vital Signs He is on 19 ucg of levophed, but BP when I was in the room was 135/74. Pulse was in the 110s with occasional PVCs., O2 sats in the 90s on 5L NC. Vital Signs Date Time Temp Pulse Resp B/P (MAP) Pulse Ox O2 Delivery O2 Flow Rate FiO2 08/04/19 10:00 120 35 102/76 (85) 93 Nasal Cannula 5.0 08/04/19 08:00 98.5 98.5 Physical Exam He is awake but delirious. No acute distress. He does not appear cyanotic. Occasional productive cough. Left thigh dressing has slight bloody drainage. Distal neurovascular function appears normal, and there was some spontaneous motion at the foot and toes without apparent deficit. Capillary refill normal left foot. Labs Laboratory Tests Test 08/02/19 16:17 08/02/19 20:15 08/02/19 22:40 08/03/19 06:00 White Blood Count 6.8 x10^3/uL (4.0-11.0) 8.5 x10^3/uL (4.0-11.0) 6.9 x10^3/uL (4.0-11.0) Red Blood Count 1.99 x10^6/uL (4.30-5.70) 2.98 x10^6/uL (4.30-5.70) 2.94 x10^6/uL (4.30-5.70) Hemoglobin 6.0 g/dL (13.0-17.5) 8.8 g/dL (13.0-17.5) 8.6 g/dL (13.0-17.5) Hematocrit 18.1 % (39.0-53.0) 26.4 % (39.0-53.0) 26.0 % (39.0-53.0) Mean Corpuscular Volume 91 fL (79-100) 89 fL (79-100) 89 fL (79-100) Mean Corpuscular Hemoglobin 30 pg (25-35) 30 pg (25-35) 29 pg (25-35) Mean Corpuscular Hemoglobin Concent 33 g/dL (31-37) 33 g/dL (31-37) 33 g/dL (31-37) Red Cell Distribution Width 15.1 % (11.5-14.5) 15.0 % (11.5-14.5) 15.3 % (11.5-14.5) Platelet Count 152 x10^3/uL (140-400) 178 x10^3/uL (140-400) 185 x10^3/uL (140-400) Neutrophils (%) (Auto) 83 % (31-73) 84 % (31-73) 82 % (31-73) Lymphocytes (%) (Auto) 11 % (24-48) 9 % (24-48) 10 % (24-48) Monocytes (%) (Auto) 7 % (0-9) 7 % (0-9) 7 % (0-9) Eosinophils (%) (Auto) 0 % (0-3) 0 % (0-3) 0 % (0-3) Basophils (%) (Auto) 0 % (0-3) 0 % (0-3) 1 % (0-3) Neutrophils # (Auto) 5.6 x10^3/uL (1.8-7.7) 7.1 x10^3/uL (1.8-7.7) 5.6 x10^3/uL (1.8-7.7) Lymphocytes # (Auto) 0.7 x10^3/uL (1.0-4.8) 0.7 x10^3/uL (1.0-4.8) 0.7 x10^3/uL (1.0-4.8) Monocytes # (Auto) 0.4 x10^3/uL (0.0-1.1) 0.6 x10^3/uL (0.0-1.1) 0.5 x10^3/uL (0.0-1.1) Eosinophils # (Auto) 0.0 x10^3/uL (0.0-0.7) 0.0 x10^3/uL (0.0-0.7) 0.0 x10^3/uL (0.0-0.7) Basophils # (Auto) 0.0 x10^3/uL (0.0-0.2) 0.0 x10^3/uL (0.0-0.2) 0.1 x10^3/uL (0.0-0.2) Segmented Neutrophils % 78 % (35-66) Band Neutrophils % 10 % (0-9) Lymphocytes % 9 % (24-48) Monocytes % 3 % (0-10) Nucleated Red Blood Cells 4 Toxic Granulation Slight Dohle Bodies Few Platelet Estimate Adequate (ADEQUATE) Polychromasia Mod Anisocytosis Slight Prothrombin Time 17.1 SEC (11.7-14.0) Prothromb Time International Ratio 1.4 (0.8-1.1) Activated Partial Thromboplast Time 37 SEC (24-38) Sodium Level 139 mmol/L (136-145) 143 mmol/L (136-145) Potassium Level 3.4 mmol/L (3.5-5.1) 2.7 mmol/L (3.5-5.1) Chloride Level 103 mmol/L (98-107) 106 mmol/L (98-107) Carbon Dioxide Level 29 mmol/L (21-32) 27 mmol/L (21-32) Anion Gap 7 (6-14) 10 (6-14) Blood Urea Nitrogen 13 mg/dL (8-26) 10 mg/dL (8-26) Creatinine 1.2 mg/dL (0.7-1.3) 0.8 mg/dL (0.7-1.3) Estimated GFR (Cockcroft-Gault) 62.0 98.9 BUN/Creatinine Ratio 11 (6-20) Glucose Level 119 mg/dL (70-99) 171 mg/dL (70-99) Lactic Acid Level 2.8 mmol/L (0.4-2.0) 1.3 mmol/L (0.4-2.0) Calcium Level 7.9 mg/dL (8.5-10.1) 8.2 mg/dL (8.5-10.1) Magnesium Level 1.4 mg/dL (1.8-2.4) Total Bilirubin 0.4 mg/dL (0.2-1.0) Aspartate Amino Transf (AST/SGOT) 26 U/L (15-37) Alanine Aminotransferase (ALT/SGPT) 24 U/L (16-63) Alkaline Phosphatase 107 U/L (46-116) Creatine Kinase 76 U/L (39-308) Troponin I Quantitative 0.168 ng/mL (0.000-0.055) 0.055 ng/mL (0.000-0.055) TO-Ulj-S-Type Natriuretic Peptide 1496 pg/mL (0-124) Total Protein 4.8 g/dL (6.4-8.2) Albumin 1.0 g/dL (3.4-5.0) Albumin/Globulin Ratio 0.3 (1.0-1.7) Lipase 35 U/L (73-393) Iron Level 24 ug/dL (65-175) Total Iron Binding Capacity 96 ug/dL (250-450) Iron Saturation 25 % (15-34) Ferritin 2639 ng/mL (26-388) Test 08/03/19 19:20 08/03/19 19:43 08/04/19 06:00 Hemoglobin 10.5 g/dL (13.0-17.5) 10.3 g/dL (13.0-17.5) Hematocrit 32.0 % (39.0-53.0) 30.9 % (39.0-53.0) Mean Corpuscular Hemoglobin Concent 33 g/dL (31-37) 33 g/dL (31-37) Sodium Level 148 mmol/L (136-145) 150 mmol/L (136-145) Potassium Level 3.5 mmol/L (3.5-5.1) 3.3 mmol/L (3.5-5.1) Chloride Level 112 mmol/L (98-107) 113 mmol/L (98-107) Carbon Dioxide Level 25 mmol/L (21-32) 24 mmol/L (21-32) Anion Gap 11 (6-14) 13 (6-14) Blood Urea Nitrogen 9 mg/dL (8-26) 8 mg/dL (8-26) Creatinine 0.7 mg/dL (0.7-1.3) 0.7 mg/dL (0.7-1.3) Estimated GFR (Cockcroft-Gault) 115.4 115.4 Glucose Level 185 mg/dL (70-99) 163 mg/dL (70-99) Calcium Level 7.4 mg/dL (8.5-10.1) 7.3 mg/dL (8.5-10.1) O2 Saturation 93 % (92-99) Arterial Blood pH 7.29 (7.35-7.45) Arterial Blood pCO2 at Patient Temp 50 mmHg (35-46) Arterial Blood pO2 at Patient Temp 77 mmHg (65-108) Arterial Blood HCO3 23 mmol/L (21-28) Arterial Blood Base Excess -4 mmol/L (-3-3) FiO2 60 White Blood Count 6.3 x10^3/uL (4.0-11.0) Red Blood Count 3.48 x10^6/uL (4.30-5.70) Mean Corpuscular Volume 89 fL (79-100) Mean Corpuscular Hemoglobin 30 pg (25-35) Red Cell Distribution Width 15.4 % (11.5-14.5) Platelet Count 184 x10^3/uL (140-400) Neutrophils (%) (Auto) 87 % (31-73) Lymphocytes (%) (Auto) 8 % (24-48) Monocytes (%) (Auto) 5 % (0-9) Eosinophils (%) (Auto) 0 % (0-3) Basophils (%) (Auto) 0 % (0-3) Neutrophils # (Auto) 5.4 x10^3/uL (1.8-7.7) Lymphocytes # (Auto) 0.5 x10^3/uL (1.0-4.8) Monocytes # (Auto) 0.3 x10^3/uL (0.0-1.1) Eosinophils # (Auto) 0.0 x10^3/uL (0.0-0.7) Basophils # (Auto) 0.0 x10^3/uL (0.0-0.2) Segmented Neutrophils % 73 % (35-66) Band Neutrophils % 20 % (0-9) Lymphocytes % 4 % (24-48) Monocytes % 3 % (0-10) Nucleated Red Blood Cells 14 Platelet Estimate Adequate (ADEQUATE) Large Platelets Few Polychromasia Present Anisocytosis Slight BUN/Creatinine Ratio 11 (6-20) Total Bilirubin 0.5 mg/dL (0.2-1.0) Aspartate Amino Transf (AST/SGOT) 41 U/L (15-37) Alanine Aminotransferase (ALT/SGPT) 25 U/L (16-63) Alkaline Phosphatase 124 U/L (46-116) Total Protein 4.8 g/dL (6.4-8.2) Albumin 1.2 g/dL (3.4-5.0) Albumin/Globulin Ratio 0.3 (1.0-1.7) Laboratory Tests Test 08/03/19 19:20 08/03/19 19:43 08/04/19 06:00 Hemoglobin 10.5 g/dL (13.0-17.5) 10.3 g/dL (13.0-17.5) Hematocrit 32.0 % (39.0-53.0) 30.9 % (39.0-53.0) Mean Corpuscular Hemoglobin Concent 33 g/dL (31-37) 33 g/dL (31-37) Sodium Level 148 mmol/L (136-145) 150 mmol/L (136-145) Potassium Level 3.5 mmol/L (3.5-5.1) 3.3 mmol/L (3.5-5.1) Chloride Level 112 mmol/L (98-107) 113 mmol/L (98-107) Carbon Dioxide Level 25 mmol/L (21-32) 24 mmol/L (21-32) Anion Gap 11 (6-14) 13 (6-14) Blood Urea Nitrogen 9 mg/dL (8-26) 8 mg/dL (8-26) Creatinine 0.7 mg/dL (0.7-1.3) 0.7 mg/dL (0.7-1.3) Estimated GFR (Cockcroft-Gault) 115.4 115.4 Glucose Level 185 mg/dL (70-99) 163 mg/dL (70-99) Calcium Level 7.4 mg/dL (8.5-10.1) 7.3 mg/dL (8.5-10.1) O2 Saturation 93 % (92-99) Arterial Blood pH 7.29 (7.35-7.45) Arterial Blood pCO2 at Patient Temp 50 mmHg (35-46) Arterial Blood pO2 at Patient Temp 77 mmHg (65-108) Arterial Blood HCO3 23 mmol/L (21-28) Arterial Blood Base Excess -4 mmol/L (-3-3) FiO2 60 White Blood Count 6.3 x10^3/uL (4.0-11.0) Red Blood Count 3.48 x10^6/uL (4.30-5.70) Mean Corpuscular Volume 89 fL (79-100) Mean Corpuscular Hemoglobin 30 pg (25-35) Red Cell Distribution Width 15.4 % (11.5-14.5) Platelet Count 184 x10^3/uL (140-400) Neutrophils (%) (Auto) 87 % (31-73) Lymphocytes (%) (Auto) 8 % (24-48) Monocytes (%) (Auto) 5 % (0-9) Eosinophils (%) (Auto) 0 % (0-3) Basophils (%) (Auto) 0 % (0-3) Neutrophils # (Auto) 5.4 x10^3/uL (1.8-7.7) Lymphocytes # (Auto) 0.5 x10^3/uL (1.0-4.8) Monocytes # (Auto) 0.3 x10^3/uL (0.0-1.1) Eosinophils # (Auto) 0.0 x10^3/uL (0.0-0.7) Basophils # (Auto) 0.0 x10^3/uL (0.0-0.2) Segmented Neutrophils % 73 % (35-66) Band Neutrophils % 20 % (0-9) Lymphocytes % 4 % (24-48) Monocytes % 3 % (0-10) Nucleated Red Blood Cells 14 Platelet Estimate Adequate (ADEQUATE) Large Platelets Few Polychromasia Present Anisocytosis Slight BUN/Creatinine Ratio 11 (6-20) Total Bilirubin 0.5 mg/dL (0.2-1.0) Aspartate Amino Transf (AST/SGOT) 41 U/L (15-37) Alanine Aminotransferase (ALT/SGPT) 25 U/L (16-63) Alkaline Phosphatase 124 U/L (46-116) Total Protein 4.8 g/dL (6.4-8.2) Albumin 1.2 g/dL (3.4-5.0) Albumin/Globulin Ratio 0.3 (1.0-1.7) Assessment Assessment POD# 1 after ORIF L femur Plan Plan of Care He still has acute blood loss anemia. He looks well, and hopefully the delirium will clear with time. Recheck Hgb for possible additional transfusions. Mobilize as tolerated--sit up in bed, sit in chair when able to tolerate. Can I give aspirin anticoagulation? THERESA SHERMAN MD Aug 04, 2019 11:28
[2019-08-04] MEDS ORDERED: SENN-87 PO (12:01)
[2019-08-04] MEDS ORDERED: GABA300C18 PO (12:01)
[2019-08-04] MEDS ORDERED: METO-239 PO (12:01)
[2019-08-04] MEDS ORDERED: LOSA25TA54 PO (12:01)
[2019-08-04] MEDS ORDERED: MODA200T2 PO (12:01)
[2019-08-04] MEDS ORDERED: ESCITALOPRAM OX10 MG PO (12:01)
[2019-08-04] MEDS ORDERED: FURO40TA4 PO (12:01)
[2019-08-04] MEDS ORDERED: LOPE2TAB27 PO (12:01)
[2019-08-04] MEDS ORDERED: ATOR10TA60 PO (12:01)
[2019-08-04] MEDS ORDERED: ACET500T68 PO (12:01)
[2019-08-04] MEDS ORDERED: POLY2500 PO (12:01)
[2019-08-04] MEDS ORDERED: TAMS0.4C97 PO (12:01)
[2019-08-04] MEDS ORDERED: OXYC5CAP PO (12:01)
[2019-08-04] MEDS ORDERED: AMLO5TAB10 PO (12:01)
[2019-08-04] MEDS ORDERED: LEVE500T6 PO (12:01)
[2019-08-04] MEDS ORDERED: FENT1PAT15 TD (12:01)
[2019-08-04] MEDS ORDERED: PANT40TA77 PO (12:01)
[2019-08-04] MEDS ORDERED: NITR0.4T22 SL (12:01)
[2019-08-04] MEDS ORDERED: HYDR12.575 PO (12:01)
[2019-08-04] MEDS ORDERED: HALOPERIDOL LACTATE 5 MG/ML VIAL. IVP PRN ×2 (12:45)
--- NOTE | 2019-08-04 15:31 | PDOC ---
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 ROS - no fever Objective Objective Vital Signs Date Time Temp Pulse Resp B/P (MAP) Pulse Ox O2 Delivery O2 Flow Rate FiO2 08/04/19 14:49 96 Nasal Cannula 5.0 08/04/19 12:00 116 17 120/89 (99) 08/04/19 08:00 98.5 98.5 Intake and Output 08/04/19 07:00 Intake Total 4361.5 ml Output Total 4605 ml Balance -243.5 ml Intake Oral 0 ml IV Total 4361.5 ml Output Urine Total 3905 ml Estimated Blood Loss 700 ml Physical Exam Heart: Regular rate, Normal S1, Normal S2 General: Alert, Oriented X3, No acute distress Lungs: Clear to auscultation Neuro: Normal speech Assessment Assessment Problems Medical Problems: (1) Anemia Status: Acute (2) Hypertension Status: Acute (3) Metastatic lung cancer (metastasis from lung to other site) Status: Acute (4) Sepsis Status: Acute IMPRESSION AND PLAN: 1. 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 He is on treatment with Keytruda under the direction of his oncologist, Dr. Leonardo in [place]. I have advised him to continue to follow up with his oncologist upon discharge for continued management. He has received 2 cycles so far and he will get a third cycle and then get a scan to evaluate for response. 2. Pathologic fracture of the left femoral diaphysis thought to be due to bone metastasis. Appreciate Orthopedics consultation, s/p surgery 08/03/19. s/p left hip treatment of intertrochanteric femoral fracture with intramedullary implant, with interlocking screws 3. Deep venous thrombosis of the right lower extremity due to underlying malignancy. He is not a candidate for anticoagulation because of recent GI bleed from small bowel ulcer. He underwent IVC filter placement on 08/02/2019. Venous Doppler of the right lower extremity on 08/02/2019 revealed occlusive thrombus from the right common femoral vein through the calf veins. Left lower extremity veins are patent. 4. PE 08/03/19: CTA revealed Extensive bilateral pulmonary emboli as described above. There may be subpleural pulmonary infarcts present. 4 cm left upper lobe apical mass concerning for lung malignancy or metastatic disease. Extensive thoracic metastatic disease with bulky mediastinal and hilar adenopathy as well as lytic bone lesions with extraosseous soft tissue extension as described above. I d/w Dr Moreno and I agree that risks of anticoagulation outweighs benefits in view of recent GI bleed. 5. Anemia due to recent GI bleed and hip fracture. I will check iron studies and B12. Continue to monitor hemoglobin and transfuse as needed. 6. Hypotension, multifactorial. I agree to obtain CT angiogram of the chest to rule out pulmonary embolism. I suspect that he may also have bleeding at that site of the fracture. Continue monitoring. I discussed with Dr. Eduardo. I discussed with registered nurse. I also discussed with multiple family members. Comment Review of Relevant I have reviewed the following items candida (where applicable) has been applied. Labs Laboratory Tests Test 08/02/19 16:17 08/02/19 20:15 08/02/19 22:40 08/03/19 06:00 White Blood Count 6.8 x10^3/uL (4.0-11.0) 8.5 x10^3/uL (4.0-11.0) 6.9 x10^3/uL (4.0-11.0) Red Blood Count 1.99 x10^6/uL (4.30-5.70) 2.98 x10^6/uL (4.30-5.70) 2.94 x10^6/uL (4.30-5.70) Hemoglobin 6.0 g/dL (13.0-17.5) 8.8 g/dL (13.0-17.5) 8.6 g/dL (13.0-17.5) Hematocrit 18.1 % (39.0-53.0) 26.4 % (39.0-53.0) 26.0 % (39.0-53.0) Mean Corpuscular Volume 91 fL (79-100) 89 fL (79-100) 89 fL (79-100) Mean Corpuscular Hemoglobin 30 pg (25-35) 30 pg (25-35) 29 pg (25-35) Mean Corpuscular Hemoglobin Concent 33 g/dL (31-37) 33 g/dL (31-37) 33 g/dL (31-37) Red Cell Distribution Width 15.1 % (11.5-14.5) 15.0 % (11.5-14.5) 15.3 % (11.5-14.5) Platelet Count 152 x10^3/uL (140-400) 178 x10^3/uL (140-400) 185 x10^3/uL (140-400) Neutrophils (%) (Auto) 83 % (31-73) 84 % (31-73) 82 % (31-73) Lymphocytes (%) (Auto) 11 % (24-48) 9 % (24-48) 10 % (24-48) Monocytes (%) (Auto) 7 % (0-9) 7 % (0-9) 7 % (0-9) Eosinophils (%) (Auto) 0 % (0-3) 0 % (0-3) 0 % (0-3) Basophils (%) (Auto) 0 % (0-3) 0 % (0-3) 1 % (0-3) Neutrophils # (Auto) 5.6 x10^3/uL (1.8-7.7) 7.1 x10^3/uL (1.8-7.7) 5.6 x10^3/uL (1.8-7.7) Lymphocytes # (Auto) 0.7 x10^3/uL (1.0-4.8) 0.7 x10^3/uL (1.0-4.8) 0.7 x10^3/uL (1.0-4.8) Monocytes # (Auto) 0.4 x10^3/uL (0.0-1.1) 0.6 x10^3/uL (0.0-1.1) 0.5 x10^3/uL (0.0-1.1) Eosinophils # (Auto) 0.0 x10^3/uL (0.0-0.7) 0.0 x10^3/uL (0.0-0.7) 0.0 x10^3/uL (0.0-0.7) Basophils # (Auto) 0.0 x10^3/uL (0.0-0.2) 0.0 x10^3/uL (0.0-0.2) 0.1 x10^3/uL (0.0-0.2) Segmented Neutrophils % 78 % (35-66) Band Neutrophils % 10 % (0-9) Lymphocytes % 9 % (24-48) Monocytes % 3 % (0-10) Nucleated Red Blood Cells 4 Toxic Granulation Slight Dohle Bodies Few Platelet Estimate Adequate (ADEQUATE) Polychromasia Mod Anisocytosis Slight Prothrombin Time 17.1 SEC (11.7-14.0) Prothromb Time International Ratio 1.4 (0.8-1.1) Activated Partial Thromboplast Time 37 SEC (24-38) Sodium Level 139 mmol/L (136-145) 143 mmol/L (136-145) Potassium Level 3.4 mmol/L (3.5-5.1) 2.7 mmol/L (3.5-5.1) Chloride Level 103 mmol/L (98-107) 106 mmol/L (98-107) Carbon Dioxide Level 29 mmol/L (21-32) 27 mmol/L (21-32) Anion Gap 7 (6-14) 10 (6-14) Blood Urea Nitrogen 13 mg/dL (8-26) 10 mg/dL (8-26) Creatinine 1.2 mg/dL (0.7-1.3) 0.8 mg/dL (0.7-1.3) Estimated GFR (Cockcroft-Gault) 62.0 98.9 BUN/Creatinine Ratio 11 (6-20) Glucose Level 119 mg/dL (70-99) 171 mg/dL (70-99) Lactic Acid Level 2.8 mmol/L (0.4-2.0) 1.3 mmol/L (0.4-2.0) Calcium Level 7.9 mg/dL (8.5-10.1) 8.2 mg/dL (8.5-10.1) Magnesium Level 1.4 mg/dL (1.8-2.4) Total Bilirubin 0.4 mg/dL (0.2-1.0) Aspartate Amino Transf (AST/SGOT) 26 U/L (15-37) Alanine Aminotransferase (ALT/SGPT) 24 U/L (16-63) Alkaline Phosphatase 107 U/L (46-116) Creatine Kinase 76 U/L (39-308) Troponin I Quantitative 0.168 ng/mL (0.000-0.055) 0.055 ng/mL (0.000-0.055) GL-Xhg-L-Type Natriuretic Peptide 1496 pg/mL (0-124) Total Protein 4.8 g/dL (6.4-8.2) Albumin 1.0 g/dL (3.4-5.0) Albumin/Globulin Ratio 0.3 (1.0-1.7) Lipase 35 U/L (73-393) Iron Level 24 ug/dL (65-175) Total Iron Binding Capacity 96 ug/dL (250-450) Iron Saturation 25 % (15-34) Ferritin 2639 ng/mL (26-388) Test 08/03/19 19:20 08/03/19 19:43 08/04/19 06:00 08/04/19 09:40 Hemoglobin 10.5 g/dL (13.0-17.5) 10.3 g/dL (13.0-17.5) Hematocrit 32.0 % (39.0-53.0) 30.9 % (39.0-53.0) Mean Corpuscular Hemoglobin Concent 33 g/dL (31-37) 33 g/dL (31-37) Sodium Level 148 mmol/L (136-145) 150 mmol/L (136-145) Potassium Level 3.5 mmol/L (3.5-5.1) 3.3 mmol/L (3.5-5.1) Chloride Level 112 mmol/L (98-107) 113 mmol/L (98-107) Carbon Dioxide Level 25 mmol/L (21-32) 24 mmol/L (21-32) Anion Gap 11 (6-14) 13 (6-14) Blood Urea Nitrogen 9 mg/dL (8-26) 8 mg/dL (8-26) Creatinine 0.7 mg/dL (0.7-1.3) 0.7 mg/dL (0.7-1.3) Estimated GFR (Cockcroft-Gault) 115.4 115.4 Glucose Level 185 mg/dL (70-99) 163 mg/dL (70-99) Calcium Level 7.4 mg/dL (8.5-10.1) 7.3 mg/dL (8.5-10.1) O2 Saturation 93 % (92-99) 94 % (92-99) Arterial Blood pH 7.29 (7.35-7.45) 7.46 (7.35-7.45) Arterial Blood pCO2 at Patient Temp 50 mmHg (35-46) 31 mmHg (35-46) Arterial Blood pO2 at Patient Temp 77 mmHg (65-108) 72 mmHg (65-108) Arterial Blood HCO3 23 mmol/L (21-28) 22 mmol/L (21-28) Arterial Blood Base Excess -4 mmol/L (-3-3) -1 mmol/L (-3-3) FiO2 60 White Blood Count 6.3 x10^3/uL (4.0-11.0) Red Blood Count 3.48 x10^6/uL (4.30-5.70) Mean Corpuscular Volume 89 fL (79-100) Mean Corpuscular Hemoglobin 30 pg (25-35) Red Cell Distribution Width 15.4 % (11.5-14.5) Platelet Count 184 x10^3/uL (140-400) Neutrophils (%) (Auto) 87 % (31-73) Lymphocytes (%) (Auto) 8 % (24-48) Monocytes (%) (Auto) 5 % (0-9) Eosinophils (%) (Auto) 0 % (0-3) Basophils (%) (Auto) 0 % (0-3) Neutrophils # (Auto) 5.4 x10^3/uL (1.8-7.7) Lymphocytes # (Auto) 0.5 x10^3/uL (1.0-4.8) Monocytes # (Auto) 0.3 x10^3/uL (0.0-1.1) Eosinophils # (Auto) 0.0 x10^3/uL (0.0-0.7) Basophils # (Auto) 0.0 x10^3/uL (0.0-0.2) Segmented Neutrophils % 73 % (35-66) Band Neutrophils % 20 % (0-9) Lymphocytes % 4 % (24-48) Monocytes % 3 % (0-10) Nucleated Red Blood Cells 14 Platelet Estimate Adequate (ADEQUATE) Large Platelets Few Polychromasia Present Anisocytosis Slight BUN/Creatinine Ratio 11 (6-20) Total Bilirubin 0.5 mg/dL (0.2-1.0) Aspartate Amino Transf (AST/SGOT) 41 U/L (15-37) Alanine Aminotransferase (ALT/SGPT) 25 U/L (16-63) Alkaline Phosphatase 124 U/L (46-116) Total Protein 4.8 g/dL (6.4-8.2) Albumin 1.2 g/dL (3.4-5.0) Albumin/Globulin Ratio 0.3 (1.0-1.7) Laboratory Tests Test 08/03/19 19:20 08/03/19 19:43 08/04/19 06:00 08/04/19 09:40 Hemoglobin 10.5 g/dL (13.0-17.5) 10.3 g/dL (13.0-17.5) Hematocrit 32.0 % (39.0-53.0) 30.9 % (39.0-53.0) Mean Corpuscular Hemoglobin Concent 33 g/dL (31-37) 33 g/dL (31-37) Sodium Level 148 mmol/L (136-145) 150 mmol/L (136-145) Potassium Level 3.5 mmol/L (3.5-5.1) 3.3 mmol/L (3.5-5.1) Chloride Level 112 mmol/L (98-107) 113 mmol/L (98-107) Carbon Dioxide Level 25 mmol/L (21-32) 24 mmol/L (21-32) Anion Gap 11 (6-14) 13 (6-14) Blood Urea Nitrogen 9 mg/dL (8-26) 8 mg/dL (8-26) Creatinine 0.7 mg/dL (0.7-1.3) 0.7 mg/dL (0.7-1.3) Estimated GFR (Cockcroft-Gault) 115.4 115.4 Glucose Level 185 mg/dL (70-99) 163 mg/dL (70-99) Calcium Level 7.4 mg/dL (8.5-10.1) 7.3 mg/dL (8.5-10.1) O2 Saturation 93 % (92-99) 94 % (92-99) Arterial Blood pH 7.29 (7.35-7.45) 7.46 (7.35-7.45) Arterial Blood pCO2 at Patient Temp 50 mmHg (35-46) 31 mmHg (35-46) Arterial Blood pO2 at Patient Temp 77 mmHg (65-108) 72 mmHg (65-108) Arterial Blood HCO3 23 mmol/L (21-28) 22 mmol/L (21-28) Arterial Blood Base Excess -4 mmol/L (-3-3) -1 mmol/L (-3-3) FiO2 60 White Blood Count 6.3 x10^3/uL (4.0-11.0) Red Blood Count 3.48 x10^6/uL (4.30-5.70) Mean Corpuscular Volume 89 fL (79-100) Mean Corpuscular Hemoglobin 30 pg (25-35) Red Cell Distribution Width 15.4 % (11.5-14.5) Platelet Count 184 x10^3/uL (140-400) Neutrophils (%) (Auto) 87 % (31-73) Lymphocytes (%) (Auto) 8 % (24-48) Monocytes (%) (Auto) 5 % (0-9) Eosinophils (%) (Auto) 0 % (0-3) Basophils (%) (Auto) 0 % (0-3) Neutrophils # (Auto) 5.4 x10^3/uL (1.8-7.7) Lymphocytes # (Auto) 0.5 x10^3/uL (1.0-4.8) Monocytes # (Auto) 0.3 x10^3/uL (0.0-1.1) Eosinophils # (Auto) 0.0 x10^3/uL (0.0-0.7) Basophils # (Auto) 0.0 x10^3/uL (0.0-0.2) Segmented Neutrophils % 73 % (35-66) Band Neutrophils % 20 % (0-9) Lymphocytes % 4 % (24-48) Monocytes % 3 % (0-10) Nucleated Red Blood Cells 14 Platelet Estimate Adequate (ADEQUATE) Large Platelets Few Polychromasia Present Anisocytosis Slight BUN/Creatinine Ratio 11 (6-20) Total Bilirubin 0.5 mg/dL (0.2-1.0) Aspartate Amino Transf (AST/SGOT) 41 U/L (15-37) Alanine Aminotransferase (ALT/SGPT) 25 U/L (16-63) Alkaline Phosphatase 124 U/L (46-116) Total Protein 4.8 g/dL (6.4-8.2) Albumin 1.2 g/dL (3.4-5.0) Albumin/Globulin Ratio 0.3 (1.0-1.7) Microbiology 08/02/19 Blood Culture - Preliminary, Resulted NO GROWTH AFTER 1 DAY Medications Current Medications Sodium Chloride 1,000 ml @ 1,000 mls/hr Q1H IV Last administered on 08/02/19at 16:16; Start 08/02/19 at 16:16; Stop 08/02/19 at 17:15; Status DC Ceftriaxone Sodium (Rocephin) 1 gm 1X ONCE IVP ; Start 08/02/19 at 17:45; Stop 08/02/19 at 17:46; Status DC Sodium Chloride 1,000 ml @ 1,000 mls/hr 1X ONCE IV Last administered on 08/02/19at 17:45; Start 08/02/19 at 17:45; Stop 08/02/19 at 18:44; Status DC Sodium Chloride 1,000 ml @ 150 mls/hr Q6H40M IV Last administered on 08/02/19at 18:20; Start 08/02/19 at 17:35; Stop 08/02/19 at 20:29; Status DC Norepinephrine Bitartrate 250 ml @ 29.512 mls/ hr CONT PRN IV SEE I/O RECORD Last administered on 08/04/19at 11:26; Start 08/02/19 at 19:15 Sodium Chloride 1,000 ml @ 100 mls/hr Q10H IV Last administered on 08/04/19at 06:01; Start 08/02/19 at 20:30; Stop 08/04/19 at 10:40; Status DC Fentanyl Citrate (Fentanyl 2ml Vial) 25 mcg PRN Q2HR PRN IVP MODERATE TO SEVERE PAIN Last administered on 08/04/19at 14:49; Start 08/02/19 at 20:30 Potassium Chloride/Water 50 ml @ 50 mls/hr Q1H IV Last administered on 08/03/19at 09:26; Start 08/03/19 at 07:00; Stop 08/03/19 at 09:59; Status DC Magnesium Sulfate 50 ml @ 25 mls/hr 1X ONCE IV Last administered on 08/03/19at 10:29; Start 08/03/19 at 11:00; Stop 08/03/19 at 12:59; Status DC Iohexol (Omnipaque 350 Mg/ml) 100 ml 1X ONCE IV Last administered on 08/03/19at 11:30; Start 08/03/19 at 11:30; Stop 08/03/19 at 11:31; Status DC Info (CONTRAST GIVEN -- Rx MONITORING) 1 each PRN DAILY PRN MC SEE COMMENTS; Start 08/03/19 at 11:30; Stop 08/05/19 at 11:29 Cefazolin Sodium 3 gm/Dextrose 100 ml @ 200 mls/hr 1X PREOP PRN IV PRIOR TO PROCEDURE; Start 08/03/19 at 14:00; Stop 08/03/19 at 18:00; Status DC Rocuronium [place] (Zemuron) 50 mg STK-MED ONCE .ROUTE ; Start 08/03/19 at 14 :36; Stop 08/03/19 at 14:37; Status DC Fentanyl Citrate (Fentanyl 2ml Vial) 100 mcg STK-MED ONCE .ROUTE ; Start 08/03/19 at 14:36; Stop 08/03/19 at 14:37; Status DC Ondansetron HCl (Zofran) 4 mg STK-MED ONCE .ROUTE ; Start 08/03/19 at 14:37; Stop 08/03/19 at 14:37; Status DC Dexamethasone Sodium Phosphate (Decadron) 4 mg STK-MED ONCE .ROUTE ; Start 08/03/19 at 14:37; Stop 08/03/19 at 14:37; Status DC Etomidate (Amidate) 20 mg STK-MED ONCE IV ; Start 08/03/19 at 14:37; Stop 08/03/19 at 14:37; Status DC Ropivacaine 53.3 ml/Epinephrine HCl 0.6 mg/ Morphine Sulfate 5 mg/Sodium Chloride 100 ml @ 100 mls/hr 1X ONCE INT ART Last administered on 08/03/19at 15:51; Start 08/03/19 at 16:00; Stop 08/03/19 at 16:59; Status DC Rocuronium [place] (Zemuron) 50 mg STK-MED ONCE .ROUTE ; Start 08/03/19 at 15:39; Stop 08/03/19 at 15:39; Status DC Phenylephrine HCl (PHENYLEPHRINE in 0.9% NACL PF) 1 mg STK-MED ONCE IV ; Start 08/03/19 at 15:48; Stop 08/03/19 at 15:49; Status DC Phenylephrine HCl (PHENYLEPHRINE in 0.9% NACL PF) 1 mg STK-MED ONCE IV ; Start 08/03/19 at 15:48; Stop 08/03/19 at 15:49; Status DC Esmolol HCl (Brevibloc) 100 mg STK-MED ONCE IVP ; Start 08/03/19 at 16:35; Stop 08/03/19 at 16:35; Status DC Phenylephrine HCl (Italo-Synephrine Inj) 10 mg STK-MED ONCE .ROUTE ; Start 08/03/19 at 16:49; Stop 08/03/19 at 16:49; Status DC Propofol 100 ml @ As Directed STK-MED ONCE IV ; Start 08/03/19 at 18:30; Stop 08/03/19 at 18:31; Status DC Propofol 100 ml @ 2.123 mls/ hr CONT PRN IV SEE I/O RECORD Last administered on 08/04/19at 06:37; Start 08/03/19 at 18:45 Cefazolin Sodium 3 gm/Dextrose 100 ml @ 200 mls/hr Q8H IV Last administered on 08/04/19at 14:23; Start 08/03/19 at 23:00; Stop 08/04/19 at 15:29 Phenylephrine HCl (Italo-Synephrine Inj) 10 mg STK-MED ONCE .ROUTE ; Start 08/03/19 at 18:47; Stop 08/03/19 at 18:47; Status DC Sevoflurane (Ultane) 90 ml STK-MED ONCE IH ; Start 08/03/19 at 18:50; Stop 08/03/19 at 18:51; Status DC Fentanyl Citrate 30 ml @ 0 mls/hr CONT PRN IV SEE PROTOCOL Last administered on 08/04/19at 01:45; Start 08/03/19 at 20:00 Famotidine (Pepcid Vial) 20 mg BID IVP Last administered on 08/04/19at 11:04; Start 08/04/19 at 10:00 Potassium Chloride/Dextrose/ Sod Cl 1,000 ml @ 100 mls/hr Q10H IV Last administered on 08/04/19at 11:10; Start 08/04/19 at 10:30 Potassium Chloride/Water 50 ml @ 50 mls/hr 1X ONCE IV Last administered on 08/04/19at 11:13; Start 08/04/19 at 10:30; Stop 08/04/19 at 11:29; Status DC Haloperidol Lactate (Haldol Inj) 1 mg PRN Q6HRS PRN IVP AGITATION Last administered on 08/04/19at 12:43; Start 08/04/19 at 12:45 Haloperidol Lactate (Haldol Inj) 0.5 mg PRN Q6HRS PRN IVP AGITATION Last administered on 08/04/19at 14:48; Start 08/04/19 at 12:45 Active Scripts Active Reported Losartan Potassium (Losartan Potassium) 25 Mg Tablet 100 Mg PO DAILY 90 Days Gabapentin (Gabapentin) 300 Mg Capsule 300 Mg PO BID Furosemide 40 Mg Tablet 40 Mg PO DAILY Escitalopram Oxalate 10 Mg Tablet 10 Mg PO DAILY Amlodipine Besylate 5 Mg Tablet 5 Mg PO DAILY Acetaminophen 500 Mg Tablet 325 Mg PO PRN Oxycodone Hcl 5 Mg Capsule 5 Mg PO PRN Q4HRS PRN Flomax (Tamsulosin Hcl) 0.4 Mg Cap.er.24h 0.4 Mg PO DAILY Pantoprazole Sodium (Pantoprazole Sodium) 40 Mg Tablet.dr 40 Mg PO DAILYAC Modafinil 200 Mg Tablet 200 Mg PO DAILY Levetiracetam 500 Mg Tablet 500 Mg PO BID FENTANYL 25mcg/hr (Fentanyl) 1 Each Patch.td72 1 Patch TD Q72H Senna Lax (Sennosides) 8.6 Mg Tablet 8.6 Mg PO PRN Atorvastatin Calcium 10 Mg Tablet 10 Mg PO HS Polyethylene Glycol 3350 2,500 Gm Powder 17 Gm PO DAILY NITROGLYCERIN SubLingual (Nitroglycerin) 0.4 Mg Tab.subl 0.4 Mg SL PRN Q5MIN PRN Metoprolol Succinate ( Xl ) (Metoprolol Succinate) 25 Mg Tab.er.24h 50 Mg PO DAILY Loperamide (Loperamide Hcl) 2 Mg Tablet 2 Mg PO PRN Hydrochlorothiazide Capsule (Hydrochlorothiazide) 12.5 Mg Capsule 12.5 Mg PO DAILY Vitals/I & O Vital Sign - Last 24 Hours 08/03/19 08/03/19 08/03/19 08/03/19 18:21 18:21 18:35 18:40 Temp 97.4 97.4 97.4 97.4 Pulse 128 132 Resp 23 22 B/P (MAP) 121/67 113/83 Pulse Ox 95 94 98 O2 Delivery Ventilator Mechanical Ventilator Ventilator Ventilator 08/03/19 08/03/19 08/03/19 08/03/19 18:40 19:00 19:14 19:40 Temp 98.6 98.6 Pulse 120 Resp 17 16 B/P (MAP) 113/83 (93) Pulse Ox 96 60 96 O2 Delivery Mechanical Ventilator Ventilator Ventilator Ventilator O2 Flow Rate 4.0 08/03/19 08/03/19 08/03/19 08/03/19 19:44 20:00 20:00 21:00 Pulse 106 98 Resp 16 16 16 B/P (MAP) 90/45 (60) 91/54 (66) Pulse Ox 60 98 100 O2 Delivery Ventilator Mechanical Ventilator Ventilator Ventilator 08/03/19 08/03/19 08/03/19 08/03/19 21:35 22:00 23:00 23:53 Pulse 96 101 Resp 16 16 B/P (MAP) 115/66 (82) 112/63 (79) Pulse Ox 100 100 100 100 O2 Delivery Ventilator Ventilator Ventilator Ventilator 08/04/19 08/04/19 08/04/19 08/04/19 00:00 00:00 01:00 01:00 Temp 98.8 98.8 Pulse 98 104 107 Resp 16 16 16 B/P (MAP) 101/56 (71) 97/60 (72) 98/58 (71) Pulse Ox 100 100 100 O2 Delivery Ventilator Mechanical Ventilator Ventilator Ventilator 08/04/19 08/04/19 08/04/19 08/04/19 01:49 02:00 03:00 03:34 Pulse 104 103 Resp 16 16 B/P (MAP) 109/56 (73) 110/64 (79) Pulse Ox 98 100 100 100 O2 Delivery Ventilator Ventilator Ventilator Ventilator 08/04/19 08/04/19 08/04/19 08/04/19 04:00 04:00 05:00 05:51 Temp 98.8 98.8 Pulse 105 111 Resp 16 16 B/P (MAP) 104/64 (77) 97/64 (75) Pulse Ox 100 100 100 O2 Delivery Mechanical Ventilator Ventilator Ventilator Ventilator 08/04/19 08/04/19 08/04/19 08/04/19 06:00 07:00 08:00 08:00 Temp 98.5 98.5 Pulse 109 134 112 Resp 16 16 19 B/P (MAP) 112/62 (79) 110/69 (83) 116/81 (93) Pulse Ox 100 100 100 O2 Delivery Ventilator Ventilator Ventilator Mechanical Ventilator 08/04/19 08/04/19 08/04/19 08/04/19 08:10 09:00 09:45 10:00 Pulse 122 120 Resp 35 35 B/P (MAP) 137/93 (108) 117/71 (86) 102/76 (85) Pulse Ox 98 96 93 O2 Delivery Ventilator Nasal Cannula Nasal Cannula O2 Flow Rate 5.0 5.0 08/04/19 08/04/19 08/04/19 08/04/19 11:00 12:00 12:00 14:49 Pulse 116 116 Resp 18 17 B/P (MAP) 74/42 (53) 120/89 (99) Pulse Ox 96 96 96 O2 Delivery Nasal Cannula Nasal Cannula Mechanical Ventilator Nasal Cannula O2 Flow Rate 5.0 5.0 5.0 5.0 Intake and Output 08/03/19 08/03/19 08/04/19 15:00 23:00 07:00 Intake Total 2500 ml 1861.5 ml Output Total 2860 ml 1250 ml 495 ml Balance -2860 ml 1250 ml 1366.5 ml KATHIE MACIAS MD Aug 04, 2019 15:30
[2019-08-04] MEDS ORDERED: AMIODARONE 150 MG in IV DEXTROSE 5% 100ML 100 ML IV ONE (17:30)
[2019-08-04] MEDS ORDERED: DIGOXIN IV 500 MCG/2 ML AMPUL. IV PRN (17:45)
[2019-08-04] MEDS ORDERED: MIDAZOLAM HCL/PF 2 MG/2 ML VIAL. IV ONE (18:45)
[2019-08-04] MEDS ORDERED: fentaNYL PF VIAL 100 MCG/2 ML VIAL IVP ONE (18:45)
--- NOTE | 2019-08-04 18:54 | EKG ---
[facility] [address] [place] [address] Test Date: 2019-08-04 Test Time: 18:50:48 Pat Name: OZZY GRAY Department: Room: 107 1 Gender: M [employer] Tacker: LYNETTE : 1960 Requested By: STEPHANIE MORROW Order Number: [id number] Reading MD: Stephanie Morrow MD Measurements Intervals [place] Rate: 131 P: [place]: QRS: -65 QRSD: 90 T: 39 QT: 338 QTc: 504 Interpretive Statements probable sinus tachycardia Electronically Signed On 08-05-2019 9:21:33 FINANCIAL ANALYSIS CONSULTANT by Stephanie Morrow MD
[2019-08-04] MEDS: PHENYLEPHRINE INJ 20 MG in IV NORMAL SALINE 250ML 250 ML IV PRN (22:40)
[2019-08-05] VITALS (30 sets, daily range): BP systolic 57–124; BP diastolic 46–86
--- NOTE | 2019-08-05 01:15 | NUR ---
taking over care of patient at this time, from JONA Crenshaw. pt educated and voices understanding. will continue to closely monitor.
[2019-08-05] MEDS: PHENYLEPHRINE INJ 20 MG in IV NORMAL SALINE 250ML 250 ML IV PRN ×3 (02:15→12:00)
[2019-08-05] MEDS: fentaNYL PF VIAL 100 MCG/2 ML VIAL IVP PRN ×5 (03:06→22:46)
[2019-08-05] MEDS ORDERED: AMIODARONE 150 MG in IV DEXTROSE 5% 100ML 100 ML IV ONE (04:00)
[2019-08-05] MEDS: POTASSIUM CL 20MEQ D5-0.45NACL 1,000 ML IV SCH ×2 (04:52→07:54)
--- NOTE | 2019-08-05 06:10 | EKG ---
[facility] [address] [place] [address] Test Date: 2019-08-02 Test Time: 16:49:18 Pat Name: OZZY GRAY Department: Room: Gender: M Match Marker: : 1960 Requested By: JOSELUIS HUTCHINSON Order Number: [id number] Reading MD: Measurements Intervals [place] Rate: 100 P: -26 AL: 148 QRS: -38 QRSD: 92 T: 63 QT: 374 QTc: 485 Interpretive Statements SINUS RHYTHM ABNORMAL LEFT AXIS DEVIATION LOW LIMB LEAD VOLTAGE LEFT ANTERIOR FASCICULAR BLOCK PROLONGED QT ABNORMAL ECG No previous ECG available for comparison
[2019-08-05 06:30] LABS: BASO % 0 % (0-3); EOS % 0 % (0-3); HEMATOCRIT 26.4 % (39.0-53.0); HEMOGLOBIN 8.8 g/dL (13.0-17.5); LYMPH # 0.6 x10^3/uL (1.0-4.8); LYMPH % 7 % (24-48); MEAN CORPUSCULAR HEMOGLOBIN 30 pg (25-35); MEAN CORPUSCULAR HGB CONC 33 g/dL (31-37); MEAN CORPUSCULAR VOLUME 88 fL (79-100); MONO # 0.3 x10^3/uL (0.0-1.1); MONO % 4 % (0-9); NEUT % 89 % (31-73); PLATELET COUNT 120 x10^3/uL (140-400); RED BLOOD COUNT 2.98 x10^6/uL (4.30-5.70); RED CELL DISTRIBUTION WIDTH 15.4 % (11.5-14.5); WHITE BLOOD COUNT 7.9 x10^3/uL (4.0-11.0)
[2019-08-05 06:39] LABS: CALCIUM 7.2 mg/dL (8.5-10.1); CREATININE 0.7 mg/dL (0.7-1.3); GFR 115.4
[2019-08-05 06:42] LABS: POTASSIUM 2.8 mmol/L (3.5-5.1)
--- NOTE | 2019-08-05 06:50 | NUR ---
critical potassium at this time, paged and reported to Dr Retana. new orders received and noted. will pass on in report, will continue to closely monitor.
[2019-08-05] MEDS: POTASSIUM CHL 20MEQ PREMIX 50 ML IV SCH ×4 (07:53→14:37)
[2019-08-05] MEDS: FAMOTIDINE 20 MG/2 ML VIAL IVP SCH ×2 (07:54→22:45)
[2019-08-05] MEDS ORDERED: POTASSIUM CHLORIDE 20 MEQ TABLET.ER. PO ONE (08:00)
--- NOTE | 2019-08-05 08:27 | PDOC ---
PROGRESS NOTES Subjective Subjective HPI - f/u of Stage 4 lung cancer ROS - no fever Objective Objective Vital Signs Date Time Temp Pulse Resp B/P (MAP) Pulse Ox O2 Delivery O2 Flow Rate FiO2 08/05/19 06:00 17 16 93/52 (66) Nasal Cannula 2.0 08/05/19 04:00 98.4 97 98.4 Intake and Output 08/05/19 07:00 Intake Total 5035.4 ml Output Total 3275 ml Balance 1760.4 ml Intake Oral 1000 ml IV Total 4035.4 ml Output Urine Total 3275 ml # Bowel Movements 1 Physical Exam Heart: Regular rate General: No acute distress Neck: No JVD Assessment Assessment Problems Medical Problems: (1) Anemia Status: Acute (2) Deep vein thrombosis of right lower extremity Status: Acute (3) Hypertension Status: Acute (4) Hypotension Status: Acute (5) Metastatic lung cancer (metastasis from lung to other site) Status: Acute (6) 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 He is on treatment with Keytruda under the direction of his oncologist, Dr. Leonardo in [place]. I have advised him to continue to follow up with his oncologist upon discharge for continued management. He has received 2 cycles so far and he will get a third cycle and then get a scan to evaluate for response. 2. Pathologic fracture of the left femoral diaphysis thought to be due to bone metastasis. Appreciate Orthopedics consultation, s/p surgery 08/03/19. s/p left hip treatment of intertrochanteric femoral fracture with intramedullary implant, with interlocking screws 3. Deep venous thrombosis of the right lower extremity due to underlying malignancy. He is not a candidate for anticoagulation because of recent GI bleed from small bowel ulcer. He underwent IVC filter placement on 08/02/2019. Venous Doppler of the right lower extremity on 08/02/2019 revealed occlusive thrombus from the right common femoral vein through the calf veins. Left lower extremity veins are patent. 4. PE 08/03/19: CTA revealed Extensive bilateral pulmonary emboli as described above. There may be subpleural pulmonary infarcts present. 4 cm left upper lobe apical mass concerning for lung malignancy or metastatic disease. Extensive thoracic metastatic disease with bulky mediastinal and hilar adenopathy as well as lytic bone lesions with extraosseous soft tissue extension as described above. I d/w Dr Moreno and I agree that risks of anticoagulation outweighs benefits in view of recent GI bleed. 5. Anemia due to recent GI bleed and hip fracture. I will check iron studies and B12. Continue to monitor hemoglobin and transfuse as needed. Hb 8.8 6. Hypotension, multifactorial. I agree to obtain CT angiogram of the chest to rule out pulmonary embolism. I suspect that he may also have bleeding at that site of the fracture. Continue monitoring. Comment Review of Relevant I have reviewed the following items candida (where applicable) has been applied. Labs Laboratory Tests Test 08/03/19 19:20 08/03/19 19:43 08/04/19 06:00 08/04/19 09:40 Hemoglobin 10.5 g/dL (13.0-17.5) 10.3 g/dL (13.0-17.5) Hematocrit 32.0 % (39.0-53.0) 30.9 % (39.0-53.0) Mean Corpuscular Hemoglobin Concent 33 g/dL (31-37) 33 g/dL (31-37) Sodium Level 148 mmol/L (136-145) 150 mmol/L (136-145) Potassium Level 3.5 mmol/L (3.5-5.1) 3.3 mmol/L (3.5-5.1) Chloride Level 112 mmol/L (98-107) 113 mmol/L (98-107) Carbon Dioxide Level 25 mmol/L (21-32) 24 mmol/L (21-32) Anion Gap 11 (6-14) 13 (6-14) Blood Urea Nitrogen 9 mg/dL (8-26) 8 mg/dL (8-26) Creatinine 0.7 mg/dL (0.7-1.3) 0.7 mg/dL (0.7-1.3) Estimated GFR (Cockcroft-Gault) 115.4 115.4 Glucose Level 185 mg/dL (70-99) 163 mg/dL (70-99) Calcium Level 7.4 mg/dL (8.5-10.1) 7.3 mg/dL (8.5-10.1) O2 Saturation 93 % (92-99) 94 % (92-99) Arterial Blood pH 7.29 (7.35-7.45) 7.46 (7.35-7.45) Arterial Blood pCO2 at Patient Temp 50 mmHg (35-46) 31 mmHg (35-46) Arterial Blood pO2 at Patient Temp 77 mmHg (65-108) 72 mmHg (65-108) Arterial Blood HCO3 23 mmol/L (21-28) 22 mmol/L (21-28) Arterial Blood Base Excess -4 mmol/L (-3-3) -1 mmol/L (-3-3) FiO2 60 White Blood Count 6.3 x10^3/uL (4.0-11.0) Red Blood Count 3.48 x10^6/uL (4.30-5.70) Mean Corpuscular Volume 89 fL (79-100) Mean Corpuscular Hemoglobin 30 pg (25-35) Red Cell Distribution Width 15.4 % (11.5-14.5) Platelet Count 184 x10^3/uL (140-400) Neutrophils (%) (Auto) 87 % (31-73) Lymphocytes (%) (Auto) 8 % (24-48) Monocytes (%) (Auto) 5 % (0-9) Eosinophils (%) (Auto) 0 % (0-3) Basophils (%) (Auto) 0 % (0-3) Neutrophils # (Auto) 5.4 x10^3/uL (1.8-7.7) Lymphocytes # (Auto) 0.5 x10^3/uL (1.0-4.8) Monocytes # (Auto) 0.3 x10^3/uL (0.0-1.1) Eosinophils # (Auto) 0.0 x10^3/uL (0.0-0.7) Basophils # (Auto) 0.0 x10^3/uL (0.0-0.2) Segmented Neutrophils % 73 % (35-66) Band Neutrophils % 20 % (0-9) Lymphocytes % 4 % (24-48) Monocytes % 3 % (0-10) Nucleated Red Blood Cells 14 Platelet Estimate Adequate (ADEQUATE) Large Platelets Few Polychromasia Present Anisocytosis Slight BUN/Creatinine Ratio 11 (6-20) Total Bilirubin 0.5 mg/dL (0.2-1.0) Aspartate Amino Transf (AST/SGOT) 41 U/L (15-37) Alanine Aminotransferase (ALT/SGPT) 25 U/L (16-63) Alkaline Phosphatase 124 U/L (46-116) Total Protein 4.8 g/dL (6.4-8.2) Albumin 1.2 g/dL (3.4-5.0) Albumin/Globulin Ratio 0.3 (1.0-1.7) Test 08/05/19 06:20 White Blood Count 7.9 x10^3/uL (4.0-11.0) Red Blood Count 2.98 x10^6/uL (4.30-5.70) Hemoglobin 8.8 g/dL (13.0-17.5) Hematocrit 26.4 % (39.0-53.0) Mean Corpuscular Volume 88 fL (79-100) Mean Corpuscular Hemoglobin 30 pg (25-35) Mean Corpuscular Hemoglobin Concent 33 g/dL (31-37) Red Cell Distribution Width 15.4 % (11.5-14.5) Platelet Count 120 x10^3/uL (140-400) Neutrophils (%) (Auto) 89 % (31-73) Lymphocytes (%) (Auto) 7 % (24-48) Monocytes (%) (Auto) 4 % (0-9) Eosinophils (%) (Auto) 0 % (0-3) Basophils (%) (Auto) 0 % (0-3) Neutrophils # (Auto) 7.0 x10^3/uL (1.8-7.7) Lymphocytes # (Auto) 0.6 x10^3/uL (1.0-4.8) Monocytes # (Auto) 0.3 x10^3/uL (0.0-1.1) Eosinophils # (Auto) 0.0 x10^3/uL (0.0-0.7) Basophils # (Auto) 0.0 x10^3/uL (0.0-0.2) Sodium Level 147 mmol/L (136-145) Potassium Level 2.8 mmol/L (3.5-5.1) Chloride Level 111 mmol/L (98-107) Carbon Dioxide Level 24 mmol/L (21-32) Anion Gap 12 (6-14) Blood Urea Nitrogen 6 mg/dL (8-26) Creatinine 0.7 mg/dL (0.7-1.3) Estimated GFR (Cockcroft-Gault) 115.4 Glucose Level 125 mg/dL (70-99) Calcium Level 7.2 mg/dL (8.5-10.1) Laboratory Tests Test 08/04/19 09:40 08/05/19 06:20 O2 Saturation 94 % (92-99) Arterial Blood pH 7.46 (7.35-7.45) Arterial Blood pCO2 at Patient Temp 31 mmHg (35-46) Arterial Blood pO2 at Patient Temp 72 mmHg (65-108) Arterial Blood HCO3 22 mmol/L (21-28) Arterial Blood Base Excess -1 mmol/L (-3-3) White Blood Count 7.9 x10^3/uL (4.0-11.0) Red Blood Count 2.98 x10^6/uL (4.30-5.70) Hemoglobin 8.8 g/dL (13.0-17.5) Hematocrit 26.4 % (39.0-53.0) Mean Corpuscular Volume 88 fL (79-100) Mean Corpuscular Hemoglobin 30 pg (25-35) Mean Corpuscular Hemoglobin Concent 33 g/dL (31-37) Red Cell Distribution Width 15.4 % (11.5-14.5) Platelet Count 120 x10^3/uL (140-400) Neutrophils (%) (Auto) 89 % (31-73) Lymphocytes (%) (Auto) 7 % (24-48) Monocytes (%) (Auto) 4 % (0-9) Eosinophils (%) (Auto) 0 % (0-3) Basophils (%) (Auto) 0 % (0-3) Neutrophils # (Auto) 7.0 x10^3/uL (1.8-7.7) Lymphocytes # (Auto) 0.6 x10^3/uL (1.0-4.8) Monocytes # (Auto) 0.3 x10^3/uL (0.0-1.1) Eosinophils # (Auto) 0.0 x10^3/uL (0.0-0.7) Basophils # (Auto) 0.0 x10^3/uL (0.0-0.2) Sodium Level 147 mmol/L (136-145) Potassium Level 2.8 mmol/L (3.5-5.1) Chloride Level 111 mmol/L (98-107) Carbon Dioxide Level 24 mmol/L (21-32) Anion Gap 12 (6-14) Blood Urea Nitrogen 6 mg/dL (8-26) Creatinine 0.7 mg/dL (0.7-1.3) Estimated GFR (Cockcroft-Gault) 115.4 Glucose Level 125 mg/dL (70-99) Calcium Level 7.2 mg/dL (8.5-10.1) Microbiology 08/02/19 Blood Culture - Preliminary, Resulted NO GROWTH AFTER 2 DAYS Medications Current Medications Sodium Chloride 1,000 ml @ 1,000 mls/hr Q1H IV Last administered on 08/02/19at 16:16; Start 08/02/19 at 16:16; Stop 08/02/19 at 17:15; Status DC Ceftriaxone Sodium (Rocephin) 1 gm 1X ONCE IVP ; Start 08/02/19 at 17:45; Stop 08/02/19 at 17:46; Status DC Sodium Chloride 1,000 ml @ 1,000 mls/hr 1X ONCE IV Last administered on 08/02/19at 17:45; Start 08/02/19 at 17:45; Stop 08/02/19 at 18:44; Status DC Sodium Chloride 1,000 ml @ 150 mls/hr Q6H40M IV Last administered on 08/02/19at 18:20; Start 08/02/19 at 17:35; Stop 08/02/19 at 20:29; Status DC Norepinephrine Bitartrate 250 ml @ 29.512 mls/ hr CONT PRN IV SEE I/O RECORD Last administered on 08/04/19at 17:41; Start 08/02/19 at 19:15 Sodium Chloride 1,000 ml @ 100 mls/hr Q10H IV Last administered on 08/04/19at 06:01; Start 08/02/19 at 20:30; Stop 08/04/19 at 10:40; Status DC Fentanyl Citrate (Fentanyl 2ml Vial) 25 mcg PRN Q2HR PRN IVP MODERATE TO SEVERE PAIN Last administered on 08/05/19at 07:53; Start 08/02/19 at 20:30 Potassium Chloride/Water 50 ml @ 50 mls/hr Q1H IV Last administered on 08/03/19at 09:26; Start 08/03/19 at 07:00; Stop 08/03/19 at 09:59; Status DC Magnesium Sulfate 50 ml @ 25 mls/hr 1X ONCE IV Last administered on 08/03/19at 10:29; Start 08/03/19 at 11:00; Stop 08/03/19 at 12:59; Status DC Iohexol (Omnipaque 350 Mg/ml) 100 ml 1X ONCE IV Last administered on 08/03/19at 11:30; Start 08/03/19 at 11:30; Stop 08/03/19 at 11:31; Status DC Info (CONTRAST GIVEN -- Rx MONITORING) 1 each PRN DAILY PRN MC SEE COMMENTS; Start 08/03/19 at 11:30; Stop 08/05/19 at 11:29 Cefazolin Sodium 3 gm/Dextrose 100 ml @ 200 mls/hr 1X PREOP PRN IV PRIOR TO PROCEDURE; Start 08/03/19 at 14:00; Stop 08/03/19 at 18:00; Status DC Rocuronium [place] (Zemuron) 50 mg STK-MED ONCE .ROUTE ; Start 08/03/19 at 14:36; Stop 08/03/19 at 14:37; Status DC Fentanyl Citrate (Fentanyl 2ml Vial) 100 mcg STK-MED ONCE .ROUTE ; Start 08/03/19 at 14:36; Stop 08/03/19 at 14:37; Status DC Ondansetron HCl (Zofran) 4 mg STK-MED ONCE .ROUTE ; Start 08/03/19 at 14:37; Stop 08/03/19 at 14:37; Status DC Dexamethasone Sodium Phosphate (Decadron) 4 mg STK-MED ONCE .ROUTE ; Start 08/03/19 at 14:37; Stop 08/03/19 at 14:37; Status DC Etomidate (Amidate) 20 mg STK-MED ONCE IV ; Start 08/03/19 at 14:37; Stop 08/03/19 at 14:37; Status DC Ropivacaine 53.3 ml/Epinephrine HCl 0.6 mg/ Morphine Sulfate 5 mg/Sodium Chloride 100 ml @ 100 mls/hr 1X ONCE INT ART Last administered on 08/03/19at 15:51; Start 08/03/19 at 16:00; Stop 08/03/19 at 16:59; Status DC Rocuronium [place] (Zemuron) 50 mg STK-MED ONCE .ROUTE ; Start 08/03/19 at 15: 39; Stop 08/03/19 at 15:39; Status DC Phenylephrine HCl (PHENYLEPHRINE in 0.9% NACL PF) 1 mg STK-MED ONCE IV ; Start 08/03/19 at 15:48; Stop 08/03/19 at 15:49; Status DC Phenylephrine HCl (PHENYLEPHRINE in 0.9% NACL PF) 1 mg STK-MED ONCE IV ; Start 08/03/19 at 15:48; Stop 08/03/19 at 15:49; Status DC Esmolol HCl (Brevibloc) 100 mg STK-MED ONCE IVP ; Start 08/03/19 at 16:35; Stop 08/03/19 at 16:35; Status DC Phenylephrine HCl (Italo-Synephrine Inj) 10 mg STK-MED ONCE .ROUTE ; Start 08/03/19 at 16:49; Stop 08/03/19 at 16:49; Status DC Propofol 100 ml @ As Directed STK-MED ONCE IV ; Start 08/03/19 at 18:30; Stop 08/03/19 at 18:31; Status DC Propofol 100 ml @ 2.123 mls/ hr CONT PRN IV SEE I/O RECORD Last administered on 08/04/19at 06:37; Start 08/03/19 at 18:45 Cefazolin Sodium 3 gm/Dextrose 100 ml @ 200 mls/hr Q8H IV Last administered on 08/04/19at 14:23; Start 08/03/19 at 23:00; Stop 08/04/19 at 15:29; Status DC Phenylephrine HCl (Italo-Synephrine Inj) 10 mg STK-MED ONCE .ROUTE ; Start 08/03/19 at 18:47; Stop 08/03/19 at 18:47; Status DC Sevoflurane (Ultane) 90 ml STK-MED ONCE IH ; Start 08/03/19 at 18:50; Stop 08/03/19 at 18:51; Status DC Fentanyl Citrate 30 ml @ 0 mls/hr CONT PRN IV SEE PROTOCOL Last administered on 08/04/19at 01:45; Start 08/03/19 at 20:00 Famotidine (Pepcid Vial) 20 mg BID IVP Last administered on 08/05/19 07:54; Start 08/04/19 at 10:00 Potassium Chloride/Dextrose/ Sod Cl 1,000 ml @ 100 mls/hr Q10H IV Last administered on 08/05/19 07:54; Start 08/04/19 at 10:30 Potassium Chloride/Water 50 ml @ 50 mls/hr 1X ONCE IV Last administered on 08/04/19 11:13; Start 08/04/19 at 10:30; Stop 08/04/19 at 11:29; Status DC Haloperidol Lactate (Haldol Inj) 1 mg PRN Q6HRS PRN IVP AGITATION, 2ND CHOICE Last administered on 08/04/19 12:43; Start 08/04/19 at 12:45 Haloperidol Lactate (Haldol Inj) 0.5 mg PRN Q6HRS PRN IVP AGITATION, 1ST CHOICE Last administered on 08/04/19 14:48; Start 08/04/19 at 12:45 Amiodarone HCl 150 mg/Dextrose 103 ml @ 618 mls/hr 1X ONCE IV Last administered on 08/04/19 17:29; Start 08/04/19 at 17:30; Stop 08/04/19 at 17:39; Status DC Digoxin (Lanoxin) 500 mcg PRN 1X PRN IV TACHYCARDIA Last administered on 08/04/19 17:52; Start 08/04/19 at 17:45 Midazolam HCl (Versed) 2 mg 1X ONCE IV Last administered on 08/04/19 18:47; Start 08/04/19 at 18:45; Stop 08/04/19 at 18:46; Status DC Phenylephrine HCl 20 mg/Sodium Chloride 252 ml @ 52.466 mls/ hr CONT PRN IV SEE I/O RECORD Last administered on 08/05/19 07:56; Start 08/04/19 at 18:45 Fentanyl Citrate (Fentanyl 2ml Vial) 50 mcg 1X ONCE IVP Last administered on 08/04/19 18:47; Start 08/04/19 at 18:45; Stop 08/04/19 at 18:46; Status DC Metoprolol Tartrate (Lopressor Vial) 5 mg PRN Q6HRS PRN IVP TACHYCARDIA; Start 08/05/19 at 03:45 Amiodarone HCl 150 mg/Dextrose 103 ml @ 618 mls/hr 1X ONCE IV Last administered on 08/05/19at 04:29; Start 08/05/19 at 04:00; Stop 08/05/19 at 04:09; Status DC Potassium Chloride (Klor-Con) 20 meq 1X ONCE PO Last administered on 08/05/19at 07:54; Start 08/05/19 at 08:00; Stop 08/05/19 at 08:01; Status DC Potassium Chloride/Water 50 ml @ 50 mls/hr Q1H IV Last administered on 08/05/19at 07:53; Start 08/05/19 at 08:00; Stop 08/05/19 at 09:59 Active Scripts Active Reported Losartan Potassium (Losartan Potassium) 25 Mg Tablet 100 Mg PO DAILY 90 Days Gabapentin (Gabapentin) 300 Mg Capsule 300 Mg PO BID Furosemide 40 Mg Tablet 40 Mg PO DAILY Escitalopram Oxalate 10 Mg Tablet 10 Mg PO DAILY Amlodipine Besylate 5 Mg Tablet 5 Mg PO DAILY Acetaminophen 500 Mg Tablet 325 Mg PO PRN Oxycodone Hcl 5 Mg Capsule 5 Mg PO PRN Q4HRS PRN Flomax (Tamsulosin Hcl) 0.4 Mg Cap.er.24h 0.4 Mg PO DAILY Pantoprazole Sodium (Pantoprazole Sodium) 40 Mg Tablet.dr 40 Mg PO DAILYAC Modafinil 200 Mg Tablet 200 Mg PO DAILY Levetiracetam 500 Mg Tablet 500 Mg PO BID FENTANYL 25mcg/hr (Fentanyl) 1 Each Patch.td72 1 Patch TD Q72H Senna Lax (Sennosides) 8.6 Mg Tablet 8.6 Mg PO PRN Atorvastatin Calcium 10 Mg Tablet 10 Mg PO HS Polyethylene Glycol 3350 2,500 Gm Powder 17 Gm PO DAILY NITROGLYCERIN SubLingual (Nitroglycerin) 0.4 Mg Tab.subl 0.4 Mg SL PRN Q5MIN PRN Metoprolol Succinate ( Xl ) (Metoprolol Succinate) 25 Mg Tab.er.24h 50 Mg PO DAILY Loperamide (Loperamide Hcl) 2 Mg Tablet 2 Mg PO PRN Hydrochlorothiazide Capsule (Hydrochlorothiazide) 12.5 Mg Capsule 12.5 Mg PO DAILY Vitals/I & O Vital Sign - Last 24 Hours 11/3/08/04/19 08/04/19 08/04/19 09:00 09:45 10:00 11:00 Pulse 122 120 116 Resp 35 35 18 B/P (MAP) 137/93 (108) 117/71 (86) 102/76 (85) 74/42 (53) Pulse Ox 96 93 96 O2 Delivery Nasal Cannula Nasal Cannula Nasal Cannula O2 Flow Rate 5.0 5.0 5.0 08/04/19 08/04/19 08/04/19 08/04/19 12:00 12:00 13:00 14:00 Pulse 116 124 116 Resp 17 24 24 B/P (MAP) 120/89 (99) 117/73 (88) 123/57 (79) Pulse Ox 96 95 94 O2 Delivery Nasal Cannula Mechanical Ventilator Nasal Cannula Nasal Cannula O2 Flow Rate 5.0 5.0 5.0 5.0 08/04/19 08/04/19 08/04/19 08/04/19 14:49 15:30 16:00 16:34 Pulse 120 Resp 17 24 B/P (MAP) 103/70 (81) Pulse Ox 96 85 90 O2 Delivery Nasal Cannula Nasal Cannula Mechanical Ventilator O2 Flow Rate 5.0 5.0 5.0 5.0 08/04/19 08/04/19 08/04/19 08/04/19 17:00 17:29 17:52 18:00 Pulse 165 170 152 158 Resp 19 21 B/P (MAP) 66/48 (54) 80/42 82/51 (61) Pulse Ox 95 95 O2 Delivery Nasal Cannula Nasal Cannula O2 Flow Rate 5.0 5.0 08/04/19 08/04/19 08/04/19 08/04/19 18:22 18:47 19:00 20:00 Pulse 128 Resp 19 21 18 B/P (MAP) 102/54 (70) Pulse Ox 95 100 100 O2 Delivery Nasal Cannula Nasal Cannula Nasal Cannula O2 Flow Rate 5.0 8.0 5.0 5.0 08/04/19 08/04/19 08/04/19 08/04/19 20:00 21:00 22:00 22:03 Temp 98.6 98.6 Pulse 126 119 119 Resp 13 21 21 13 B/P (MAP) 125/72 (89) 99/64 (76) 102/47 (65) Pulse Ox 100 99 99 99 O2 Delivery Nasal Cannula Nasal Cannula Nasal Cannula Nasal Cannula O2 Flow Rate 5.0 5.0 5.0 5.0 08/04/19 08/04/19 08/04/19 08/04/19 22:18 22:48 23:00 23:59 Pulse 119 Resp 17 22 21 B/P (MAP) 82/61 (68) Pulse Ox 99 98 99 O2 Delivery Nasal Cannula Nasal Cannula Nasal Cannula Nasal Cannula O2 Flow Rate 5.0 2.0 5.0 4.0 08/05/19 08/05/19 08/05/19 08/05/19 00:01 01:15 01:15 02:00 Pulse 119 146 147 Resp 21 24 15 B/P (MAP) 124/76 (92) 110/64 (79) 85/65 (72) Pulse Ox 99 98 O2 Delivery Nasal Cannula Nasal Cannula Nasal Cannula Nasal Cannula O2 Flow Rate 5.0 2.0 2.0 2.0 08/05/19 08/05/19 08/05/19 08/05/19 03:00 03:06 03:45 04:00 Temp 98.4 98.4 Pulse 149 156 Resp 15 23 23 17 B/P (MAP) 81/52 (62) 83/64 (70) Pulse Ox 97 O2 Delivery Nasal Cannula Nasal Cannula Nasal Cannula Nasal Cannula O2 Flow Rate 2.0 2.0 2.0 2.0 08/05/19 08/05/19 08/05/19 08/05/19 04:00 04:29 04:52 05:00 Pulse 146 122 Resp 22 14 B/P (MAP) 83/64 95/58 (70) O2 Delivery Nasal Cannula Nasal Cannula Nasal Cannula O2 Flow Rate 2.0 2.0 2.0 08/05/19 08/05/19 06:00 06:00 Pulse 17 Resp 16 16 B/P (MAP) 93/52 (66) O2 Delivery Nasal Cannula Nasal Cannula O2 Flow Rate 2.0 2.0 Intake and Output 08/04/19 08/04/19 08/05/19 15:00 23:00 07:00 Intake Total 1736.8 ml 1972 ml 1326.6 ml Output Total 1310 ml 705 ml 1260 ml Balance 426.8 ml 1267 ml 66.6 ml KATHIE MACIAS MD Aug 05, 2019 08:27
--- NOTE | 2019-08-05 08:33 | PDOC ---
PULMONARY PROGRESS NOTES Subjective NO CHEST PAIN PT DID WELL ON TRIAL YESTERDAY EXTUBATED NO RESP COMPLAINTS NOW Vitals Vital Signs Date Time Temp Pulse Resp B/P (MAP) Pulse Ox O2 Delivery O2 Flow Rate FiO2 08/05/19 06:00 17 16 93/52 (66) Nasal Cannula 2.0 08/05/19 04:00 98.4 97 98.4 ROS: No Nausea, No Chest Pain, No Abdominal Pain General: Alert Lungs: Clear Cardiovascular: S1, S2 Abdomen: Soft, Non-tender Neuro Exam: Alert Extremities: Other (EDEMA) Skin: Warm Labs Laboratory Tests Test 08/03/19 19:20 08/03/19 19:43 08/04/19 06:00 08/04/19 09:40 Hemoglobin 10.5 g/dL (13.0-17.5) 10.3 g/dL (13.0-17.5) Hematocrit 32.0 % (39.0-53.0) 30.9 % (39.0-53.0) Mean Corpuscular Hemoglobin Concent 33 g/dL (31-37) 33 g/dL (31-37) Sodium Level 148 mmol/L (136-145) 150 mmol/L (136-145) Potassium Level 3.5 mmol/L (3.5-5.1) 3.3 mmol/L (3.5-5.1) Chloride Level 112 mmol/L (98-107) 113 mmol/L (98-107) Carbon Dioxide Level 25 mmol/L (21-32) 24 mmol/L (21-32) Anion Gap 11 (6-14) 13 (6-14) Blood Urea Nitrogen 9 mg/dL (8-26) 8 mg/dL (8-26) Creatinine 0.7 mg/dL (0.7-1.3) 0.7 mg/dL (0.7-1.3) Estimated GFR (Cockcroft-Gault) 115.4 115.4 Glucose Level 185 mg/dL (70-99) 163 mg/dL (70-99) Calcium Level 7.4 mg/dL (8.5-10.1) 7.3 mg/dL (8.5-10.1) O2 Saturation 93 % (92-99) 94 % (92-99) Arterial Blood pH 7.29 (7.35-7.45) 7.46 (7.35-7.45) Arterial Blood pCO2 at Patient Temp 50 mmHg (35-46) 31 mmHg (35-46) Arterial Blood pO2 at Patient Temp 77 mmHg (65-108) 72 mmHg (65-108) Arterial Blood HCO3 23 mmol/L (21-28) 22 mmol/L (21-28) Arterial Blood Base Excess -4 mmol/L (-3-3) -1 mmol/L (-3-3) FiO2 60 White Blood Count 6.3 x10^3/uL (4.0-11.0) Red Blood Count 3.48 x10^6/uL (4.30-5.70) Mean Corpuscular Volume 89 fL (79-100) Mean Corpuscular Hemoglobin 30 pg (25-35) Red Cell Distribution Width 15.4 % (11.5-14.5) Platelet Count 184 x10^3/uL (140-400) Neutrophils (%) (Auto) 87 % (31-73) Lymphocytes (%) (Auto) 8 % (24-48) Monocytes (%) (Auto) 5 % (0-9) Eosinophils (%) (Auto) 0 % (0-3) Basophils (%) (Auto) 0 % (0-3) Neutrophils # (Auto) 5.4 x10^3/uL (1.8-7.7) Lymphocytes # (Auto) 0.5 x10^3/uL (1.0-4.8) Monocytes # (Auto) 0.3 x10^3/uL (0.0-1.1) Eosinophils # (Auto) 0.0 x10^3/uL (0.0-0.7) Basophils # (Auto) 0.0 x10^3/uL (0.0-0.2) Segmented Neutrophils % 73 % (35-66) Band Neutrophils % 20 % (0-9) Lymphocytes % 4 % (24-48) Monocytes % 3 % (0-10) Nucleated Red Blood Cells 14 Platelet Estimate Adequate (ADEQUATE) Large Platelets Few Polychromasia Present Anisocytosis Slight BUN/Creatinine Ratio 11 (6-20) Total Bilirubin 0.5 mg/dL (0.2-1.0) Aspartate Amino Transf (AST/SGOT) 41 U/L (15-37) Alanine Aminotransferase (ALT/SGPT) 25 U/L (16-63) Alkaline Phosphatase 124 U/L (46-116) Total Protein 4.8 g/dL (6.4-8.2) Albumin 1.2 g/dL (3.4-5.0) Albumin/Globulin Ratio 0.3 (1.0-1.7) Test 08/05/19 06:20 White Blood Count 7.9 x10^3/uL (4.0-11.0) Red Blood Count 2.98 x10^6/uL (4.30-5.70) Hemoglobin 8.8 g/dL (13.0-17.5) Hematocrit 26.4 % (39.0-53.0) Mean Corpuscular Volume 88 fL (79-100) Mean Corpuscular Hemoglobin 30 pg (25-35) Mean Corpuscular Hemoglobin Concent 33 g/dL (31-37) Red Cell Distribution Width 15.4 % (11.5-14.5) Platelet Count 120 x10^3/uL (140-400) Neutrophils (%) (Auto) 89 % (31-73) Lymphocytes (%) (Auto) 7 % (24-48) Monocytes (%) (Auto) 4 % (0-9) Eosinophils (%) (Auto) 0 % (0-3) Basophils (%) (Auto) 0 % (0-3) Neutrophils # (Auto) 7.0 x10^3/uL (1.8-7.7) Lymphocytes # (Auto) 0.6 x10^3/uL (1.0-4.8) Monocytes # (Auto) 0.3 x10^3/uL (0.0-1.1) Eosinophils # (Auto) 0.0 x10^3/uL (0.0-0.7) Basophils # (Auto) 0.0 x10^3/uL (0.0-0.2) Sodium Level 147 mmol/L (136-145) Potassium Level 2.8 mmol/L (3.5-5.1) Chloride Level 111 mmol/L (98-107) Carbon Dioxide Level 24 mmol/L (21-32) Anion Gap 12 (6-14) Blood Urea Nitrogen 6 mg/dL (8-26) Creatinine 0.7 mg/dL (0.7-1.3) Estimated GFR (Cockcroft-Gault) 115.4 Glucose Level 125 mg/dL (70-99) Calcium Level 7.2 mg/dL (8.5-10.1) Laboratory Tests Test 08/04/19 09:40 08/05/19 06:20 O2 Saturation 94 % (92-99) Arterial Blood pH 7.46 (7.35-7.45) Arterial Blood pCO2 at Patient Temp 31 mmHg (35-46) Arterial Blood pO2 at Patient Temp 72 mmHg (65-108) Arterial Blood HCO3 22 mmol/L (21-28) Arterial Blood Base Excess -1 mmol/L (-3-3) White Blood Count 7.9 x10^3/uL (4.0-11.0) Red Blood Count 2.98 x10^6/uL (4.30-5.70) Hemoglobin 8.8 g/dL (13.0-17.5) Hematocrit 26.4 % (39.0-53.0) Mean Corpuscular Volume 88 fL (79-100) Mean Corpuscular Hemoglobin 30 pg (25-35) Mean Corpuscular Hemoglobin Concent 33 g/dL (31-37) Red Cell Distribution Width 15.4 % (11.5-14.5) Platelet Count 120 x10^3/uL (140-400) Neutrophils (%) (Auto) 89 % (31-73) Lymphocytes (%) (Auto) 7 % (24-48) Monocytes (%) (Auto) 4 % (0-9) Eosinophils (%) (Auto) 0 % (0-3) Basophils (%) (Auto) 0 % (0-3) Neutrophils # (Auto) 7.0 x10^3/uL (1.8-7.7) Lymphocytes # (Auto) 0.6 x10^3/uL (1.0-4.8) Monocytes # (Auto) 0.3 x10^3/uL (0.0-1.1) Eosinophils # (Auto) 0.0 x10^3/uL (0.0-0.7) Basophils # (Auto) 0.0 x10^3/uL (0.0-0.2) Sodium Level 147 mmol/L (136-145) Potassium Level 2.8 mmol/L (3.5-5.1) Chloride Level 111 mmol/L (98-107) Carbon Dioxide Level 24 mmol/L (21-32) Anion Gap 12 (6-14) Blood Urea Nitrogen 6 mg/dL (8-26) Creatinine 0.7 mg/dL (0.7-1.3) Estimated GFR (Cockcroft-Gault) 115.4 Glucose Level 125 mg/dL (70-99) Calcium Level 7.2 mg/dL (8.5-10.1) Medications Active Scripts Medications Dose Route/Sig Max Daily Dose Days Date Category Losartan Potassium (Losartan Potassium) 25 Mg Tablet 100 Mg PO DAILY 90 08/04/19 Reported Gabapentin (Gabapentin) 300 Mg Capsule 300 Mg PO BID 08/04/19 Reported Furosemide 40 Mg Tablet 40 Mg PO DAILY 08/04/19 Reported Escitalopram Oxalate 10 Mg Tablet 10 Mg PO DAILY 08/04/19 Reported Amlodipine Besylate 5 Mg Tablet 5 Mg PO DAILY 08/04/19 Reported Acetaminophen 500 Mg Tablet 325 Mg PO PRN 08/04/19 Reported Oxycodone Hcl 5 Mg Capsule 5 Mg PO PRN Q4HRS PRN 08/04/19 Reported Flomax (Tamsulosin Hcl) 0.4 Mg Cap.er.24h 0.4 Mg PO DAILY 08/04/19 Reported Pantoprazole Sodium (Pantoprazole Sodium) 40 Mg Tablet.dr 40 Mg PO DAILYAC 08/04/19 Reported Modafinil 200 Mg Tablet 200 Mg PO DAILY 08/04/19 Reported Levetiracetam 500 Mg Tablet 500 Mg PO BID 08/04/19 Reported FENTANYL 25mcg/hr (Fentanyl) 1 Each Patch.td72 1 Patch TD Q72H 08/04/19 Reported Senna Lax (Sennosides) 8.6 Mg Tablet 8.6 Mg PO PRN 08/04/19 Reported Atorvastatin Calcium 10 Mg Tablet 10 Mg PO HS 08/04/19 Reported Polyethylene Glycol 3350 2,500 Gm Powder 17 Gm PO DAILY 08/04/19 Reported NITROGLYCERIN SubLingual (Nitroglycerin) 0.4 Mg Tab.subl 0.4 Mg SL PRN Q5MIN PRN 08/04/19 Reported Metoprolol Succinate ( Xl ) (Metoprolol Succinate) 25 Mg Tab.er.24h 50 Mg PO DAILY 08/04/19 Reported Loperamide (Loperamide Hcl) 2 Mg Tablet 2 Mg PO PRN 08/04/19 Reported Hydrochlorothiazide Capsule (Hydrochlorothiazide) 12.5 Mg Capsule 12.5 Mg PO DAILY 08/04/19 Reported Comments CXR unchanged except for tubes Impression . 1. Acute Respiratory Failure 2. Metastatic squamous cell lung cancer 3. Pulmonary emboli 4. Recent GI bleed with anemia 5. Pathological femur fracture, s/p repair 6. HYPOTENSION SUSPECT LOW VOLUME Plan . WILL CONTINUE SUPPORT NOW ON PRESSORS FOR HYPTOTENSION NO ANTICOUGULATION ORAL DIET FOLLOW CARDIOLOGY INPUT REPEAT CXR EFREN COTTRELL MD Aug 05, 2019 08:33
--- NOTE | 2019-08-05 09:27 | PDOC ---
CARDIOLOGY PROGRESS NOTE SUBJECTIVE: Patient had unstable SVT last night. Required cardioversion. Still tachycardic today, likely due to all his comorbidities. Resting comfortably in bed. Denies any chest pain/dyspnea. OBJECTIVE: Vital Signs/I&O: Vital Signs Date Time Temp Pulse Resp B/P (MAP) Pulse Ox O2 Delivery O2 Flow Rate FiO2 08/05/19 06:00 17 16 93/52 (66) Nasal Cannula 2.0 08/05/19 04:00 98.4 97 98.4 I & O 08/04/19 08/04/19 08/05/19 15:00 23:00 07:00 Intake Total 1736.8 ml 1972 ml 1326.6 ml Output Total 1310 ml 705 ml 1260 ml Balance 426.8 ml 1267 ml 66.6 ml Objective: a/o x 3. NAD 2+ LE edema. Normal heart tones clear lungs anteriorly CURRENT MEDICATIONS: Levophed gtt DIAGNOSTIC TESTING: Hypokalemic anemic multiple electrolyte abn noted ASSESSMENT: 1. SVT - likely reactive due to below 2. P.E./DVT s/p IVC filter 3. Anemia 4. Lung CA with mets PLAN: 1. Would stop IVF as he has developed anasarca. May need free water due to hypernatremia. Defer to PCP 2. Will check echo as the patient and family still want aggressive care. If severe LV dysfunction, will be able to help with determining further prognosis for family 3. Continue pressor support with levophed. Thanks. Discussed with nursing STEPHANIE MORROW MD Aug 05, 2019 09:27
--- NOTE | 2019-08-05 09:42 | PDOC ---
IM PROGRESS NOTES- Subjective Subjective No Complaints of pain or dyspnea.Has been coughing.Still on Levophed. Passed bedside swallow. Objective Vitals/I&O Vital Signs Date Time Temp Pulse Resp B/P (MAP) Pulse Ox O2 Delivery O2 Flow Rate FiO2 08/05/19 06:00 17 16 93/52 (66) Nasal Cannula 2.0 08/05/19 04:00 98.4 97 98.4 I & O 08/04/19 08/04/19 08/05/19 15:00 23:00 07:00 Intake Total 1736.8 ml 1972 ml 1326.6 ml Output Total 1310 ml 705 ml 1410 ml Balance 426.8 ml 1267 ml -83.4 ml Physical Exam Physical Exam General appearance - alert,ill appearing, and in no distress and oriented to person, place, and time Mental Status - alert, oriented to person, place, and time, affect appropriate to mood Head - normal Chest -decreased breath sounds at bases Heart - S1 and S2 normal Abdomen - soft, non tender, Neurological - alert and oriented Musculoskeletal - no muscular tenderness noted Extremities - 3+edema of the lower extremities right greater than left Skin - warm and dry Labs Laboratory Tests Test 08/04/19 09:40 08/05/19 06:20 O2 Saturation 94 % (92-99) Arterial Blood pH 7.46 (7.35-7.45) H Arterial Blood pCO2 at Patient Temp 31 mmHg (35-46) L Arterial Blood pO2 at Patient Temp 72 mmHg (65-108) Arterial Blood HCO3 22 mmol/L (21-28) Arterial Blood Base Excess -1 mmol/L (-3-3) White Blood Count 7.9 x10^3/uL (4.0-11.0) Red Blood Count 2.98 x10^6/uL (4.30-5.70) L Hemoglobin 8.8 g/dL (13.0-17.5) L Hematocrit 26.4 % (39.0-53.0) L Mean Corpuscular Volume 88 fL (79-100) Mean Corpuscular Hemoglobin 30 pg (25-35) Mean Corpuscular Hemoglobin Concent 33 g/dL (31-37) Red Cell Distribution Width 15.4 % (11.5-14.5) H Platelet Count 120 x10^3/uL (140-400) L Neutrophils (%) (Auto) 89 % (31-73) H Lymphocytes (%) (Auto) 7 % (24-48) L Monocytes (%) (Auto) 4 % (0-9) Eosinophils (%) (Auto) 0 % (0-3) Basophils (%) (Auto) 0 % (0-3) Neutrophils # (Auto) 7.0 x10^3/uL (1.8-7.7) Lymphocytes # (Auto) 0.6 x10^3/uL (1.0-4.8) L Monocytes # (Auto) 0.3 x10^3/uL (0.0-1.1) Eosinophils # (Auto) 0.0 x10^3/uL (0.0-0.7) Basophils # (Auto) 0.0 x10^3/uL (0.0-0.2) Sodium Level 147 mmol/L (136-145) H Potassium Level 2.8 mmol/L (3.5-5.1) *L Chloride Level 111 mmol/L (98-107) H Carbon Dioxide Level 24 mmol/L (21-32) Anion Gap 12 (6-14) Blood Urea Nitrogen 6 mg/dL (8-26) L Creatinine 0.7 mg/dL (0.7-1.3) Estimated GFR (Cockcroft-Gault) 115.4 Glucose Level 125 mg/dL (70-99) H Calcium Level 7.2 mg/dL (8.5-10.1) L Laboratory Tests 08/05/19 06:20 Laboratory Tests 08/05/19 06:20 Meds Current Medications Medications (Trade) Dose Ordered Sig/Ryan Route PRN Reason Start Time Stop Time Status Last Admin Dose Admin Famotidine (Pepcid Vial) 20 mg BID IVP 08/04/19 10:00 08/05/19 07:54 Potassium Chloride/Dextrose/ Sod Cl 1,000 ml @ 100 mls/hr Q10H IV 08/04/19 10:30 08/05/19 07:54 Potassium Chloride/Water 50 ml @ 50 mls/hr 1X ONCE IV 08/04/19 10:30 08/04/19 11:29 DC 08/04/19 11:13 Haloperidol Lactate (Haldol Inj) 1 mg PRN Q6HRS PRN IVP AGITATION, 2ND CHOICE 08/04/19 12:45 08/04/19 12:43 Haloperidol Lactate (Haldol Inj) 0.5 mg PRN Q6HRS PRN IVP AGITATION, 1ST CHOICE 08/04/19 12:45 08/04/19 14:48 Amiodarone HCl 150 mg/Dextrose 103 ml @ 618 mls/hr 1X ONCE IV 08/04/19 17:30 08/04/19 17:39 DC 08/04/19 17:29 Digoxin (Lanoxin) 500 mcg PRN 1X PRN IV TACHYCARDIA 08/04/19 17:45 08/04/19 17:52 Midazolam HCl (Versed) 2 mg 1X ONCE IV 08/04/19 18:45 08/04/19 18:46 DC 08/04/19 18:47 Phenylephrine HCl 20 mg/Sodium Chloride 252 ml @ 52.466 mls/ hr CONT PRN IV SEE I/O RECORD 08/04/19 18:45 08/05/19 07:56 Fentanyl Citrate (Fentanyl 2ml Vial) 50 mcg 1X ONCE IVP 08/04/19 18:45 08/04/19 18:46 DC 08/04/19 18:47 Amiodarone HCl 150 mg/Dextrose 103 ml @ 618 mls/hr 1X ONCE IV 08/05/19 04:00 08/05/19 04:09 DC 08/05/19 04:29 Potassium Chloride (Klor-Con) 20 meq 1X ONCE PO 08/05/19 08:00 08/05/19 08:01 DC 08/05/19 07:54 Potassium Chloride/Water 50 ml @ 50 mls/hr Q1H IV 08/05/19 08:00 08/05/19 09:59 08/05/19 09:07 Assessment Assessment Problems Medical Problems: (1) Anemia Status: Acute (2) Hypertension Status: Acute (3) Metastatic lung cancer (metastasis from lung to other site) Status: Acute (4) Sepsis Status: Acute FINAL IMPRESSION: 1. Pathological fracture of the left femur. 2. Lung cancer with metastasis, squamous cell.stage 4. 3. Deep venous thrombosis, right leg. 4. Anemia requiring transfusion. 5. Hypotension. 6. History of lung cancer with metastasis to the brain and to the lumbar spine, had a chemo as well as radiation treatment. 5. Supra ventricular tachycardia, heart rate around 140, probably multiple factors, slight bump in troponin 0.1. 6 .Brain and spine mets s/p radiation 7.Pulmonary Embolism 8. Hypokalemia 9. Anasarca PLAN: POD #1 S/P femur surgery, nailing. dvt leg s/p IVC filter. PE not a cadidate for anticoagulation due to gi bleed. hypotension on Levophed. extubated this morning iv fluids . recent chemo.Ketruda 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, left femur, initial encounter for fracture Post-Op Diagnosis: same Procedure: * CPT 79984 left hip treatment of intertrochanteric femoral fracture with intramedullary implant, with interlocking screws Surgeon: Imtiaz Eduardo MD Bindery Cutter Operator: DIANE Crum Anesthesia Type: General EBL: 700 mL Fluids: 2u PRBCs, 2200 crystalloid Specimens Obtained: none Complications: none Right lower extremity DVT- 7 had an IVC filter placed. Patient is not a candidate for anticoagulation due to recent duodenal ulcer with bleeding. Pulmonary embolism. Also had some pulmonary infarcts that are subpleural. Not a candidate for anticoagulation. Lung cancer with extensive metastasis. Patient was treated with Keytruda previously. Hypotension on Levophed Hypokalemia- replace potassium,place on K protocol. Supra ventricular tachycardia. Followed by leather belt loop cutter.Cardioverted yesterday. Anasarca- may need Lasix but has hypotension and hypokalemia. Anemia- monitor Dysphagia- advance to regular diet. Prognosis is very poor. Recheck labs in a.m. Plan Plan For more details regarding further plans, please refer to the orders. ISIAH GREGORY MD Aug 05, 2019 09:42
--- NOTE | 2019-08-05 11:15 | NUR ---
SS following for discharge planning. SS received notification that pt was from [facility], ; fax [phone]. SS contacted [facility] ([facility]3] and verified that pt was from there facility. SS phoned and faxed clinical updates. SS will continue to follow for discharge planning.
[2019-08-05 11:55] LABS: CALCIUM 7.2 mg/dL (8.5-10.1); CREATININE 0.6 mg/dL (0.7-1.3); GFR 137.9; MAGNESIUM 1.5 mg/dL (1.8-2.4); POTASSIUM 3.1 mmol/L (3.5-5.1)
--- NOTE | 2019-08-05 12:26 | CARD ---
MR#: [id number] Date of Study: 08/05/2019 Ordering Physician: CHRISTOPHER DAIGLE, Referring Physician: CHRISTOPHER DAIGLE, Tech: Seble Leigh APPROVED REPORT EXAM: Two-dimensional and M-mode echocardiogram with Doppler and color Doppler. Other Information Quality : FairHR: 126bpm Technically limited study due to Rapid heart rate and supine patient INDICATION Super ventricular Tachycardia RISK FACTORS Hypertension 2D DIMENSIONS Left Atrium(2D)3.9 (1.6-4.0cm)IVSd1.6 (0.7-1.1cm) Aortic Root(2D)3.4 (2.0-3.7cm)LVDd5.6 (3.9-5.9cm) LVOT Diameter2.2 (1.8-2.4cm)PWd1.3 (0.7-1.1cm) LVDs3.4 (2.5-4.0cm)FS (%) 38.8 % SV103.3 mlLVEF(%)68.6 (>50%) Aortic Valve AoV Peak Johnson.135.2cm/sAoV VTI22.1cm AO Peak GR.7.3mmHgLVOT VTI 16.84cm AO Mean GR.5mmHg Mitral Valve MV E Rwjolmvq45.1cm/sMV DECEL [id number] MV A Ibzodqkd38.9cm/sE/A Ratio1.2 TDI Lateral E' P. V13.00cm/sMedial E' P. V13.45cm/s E/Lateral E'6.1E/Medial E'5.9 Tricuspid Valve TR P. [id number]/sRAP [id number] TR Peak Gr.08dmWpGKOZ41fmZm Pulmonary Vein S1 Anvsnmyb32.6cm/sS2 Zbajvsxl07.95cm/s D2 [place]y50.9cm/sPVa [id number] LEFT VENTRICLE The left ventricle is normal size. There is moderate concentric left ventricular hypertrophy. The lef t ventricular systolic function is normal and the ejection fraction is within normal range. The Eject ion Fraction is 50-55%. There is normal LV segmental wall motion. Transmitral Doppler flow pattern is Grade I-abnormal relaxation pattern. RIGHT VENTRICLE The right ventricle is mildly dilated. There is normal right ventricular wall thickness. The right ve ntricular systolic function is normal. ATRIA The left atrium size is normal. The right atrium size is normal. The interatrial septum is intact wit h no evidence for an atrial septal defect or patent foramen ovale as noted on 2-D or Doppler imaging. AORTIC VALVE The aortic valve is normal in structure and function. Doppler and Color Flow revealed no significant aortic regurgitation. There is no significant aortic valvular stenosis. MITRAL VALVE The mitral valve is normal in structure and function. There is no evidence of mitral valve prolapse. There is no mitral valve stenosis. Doppler and Color Flow revealed no mitral valve regurgitation note d. TRICUSPID VALVE The tricuspid valve is not well visualized. Doppler and Color Flow revealed trace tricuspid regurgita tion with an estimated PAP of 42 mmHg. There is no tricuspid valve stenosis. PULMONIC VALVE The pulmonic valve is not well visualized. Doppler and Color Flow revealed no pulmonic valvular regur gitation. There is no pulmonic valvular stenosis. GREAT VESSELS The aortic root is normal in size. The IVC is normal in size and collapses >50% with inspiration. PERICARDIAL EFFUSION There is a trace pericardial effusion. Critical Notification Critical Value: No <Conclusion> The left ventricular systolic function is normal and the ejection fraction is within normal range. Th e Ejection Fraction is 50-55%. There is normal LV segmental wall motion. The right ventricle is mildly dilated. Doppler and Color Flow revealed trace tricuspid regurgitation with an estimated PAP of 42 mmHg. There is a trace pericardial effusion. Signed by : Christopher Daigle, Electronically Approved : 08/05/2019 12:26:27
[2019-08-05] MEDS: MAGNESIUM SULFATE 4GM 100 ML IV SCH (13:39)
[2019-08-05] MEDS: NORMAL SALINE IV PRN ×2 (13:57→19:55)
[2019-08-05] MEDS: PHENYLEPHRINE IV PRN ×2 (13:57→19:55)
[2019-08-05 17:04] LABS: CALCIUM 6.9 mg/dL (8.5-10.1); CREATININE 0.6 mg/dL (0.7-1.3); GFR 137.9; MAGNESIUM 2.3 mg/dL (1.8-2.4); POTASSIUM 3.5 mmol/L (3.5-5.1)
[2019-08-05] MEDS: METOPROLOL TARTRATE 5 MG/5 ML VIAL. IVP PRN (22:45)
[2019-08-06] VITALS (24 sets, daily range): BP systolic 80–121; BP diastolic 46–75
[2019-08-06] MEDS: NORMAL SALINE IV PRN ×3 (00:01→22:11)
[2019-08-06] MEDS: PHENYLEPHRINE IV PRN ×3 (00:01→22:11)
[2019-08-06 06:11] LABS: BASO # 0.1 x10^3/uL (0.0-0.2); BASO % 1 % (0-3); EOS % 0 % (0-3); HEMATOCRIT 26.4 % (39.0-53.0); HEMOGLOBIN 8.8 g/dL (13.0-17.5); LYMPH # 0.7 x10^3/uL (1.0-4.8); LYMPH % 8 % (24-48); MEAN CORPUSCULAR HEMOGLOBIN 30 pg (25-35); MEAN CORPUSCULAR HGB CONC 33 g/dL (31-37); MEAN CORPUSCULAR VOLUME 89 fL (79-100); MONO # 0.3 x10^3/uL (0.0-1.1); MONO % 4 % (0-9); NEUT # 7.2 x10^3/uL (1.8-7.7); NEUT % 87 % (31-73); PLATELET COUNT 109 x10^3/uL (140-400); RED BLOOD COUNT 2.97 x10^6/uL (4.30-5.70); WHITE BLOOD COUNT 8.3 x10^3/uL (4.0-11.0)
[2019-08-06 06:19] LABS: ALBUMIN/GLOBULIN RATIO 0.3 (1.0-1.7); CALCIUM 7.3 mg/dL (8.5-10.1); CREATININE 0.6 mg/dL (0.7-1.3); GFR 137.9; POTASSIUM 3.2 mmol/L (3.5-5.1); TOTAL BILIRUBIN 0.4 mg/dL (0.2-1.0); TOTAL PROTEIN 4.7 g/dL (6.4-8.2)
[2019-08-06] MEDS: POTASSIUM CHL 20MEQ PREMIX 50 ML IV SCH ×2 (07:52→09:01)
[2019-08-06] MEDS: MAGNESIUM SULFATE 4GM 100 ML IV SCH (07:52)
[2019-08-06] MEDS: FAMOTIDINE 20 MG/2 ML VIAL IVP SCH ×2 (07:52→21:00)
--- NOTE | 2019-08-06 09:15 | PDOC ---
PROGRESS NOTES Subjective Subjective HPI -f/u of Stage 4 lung cancer ROS - no CP Objective Objective Vital Signs Date Time Temp Pulse Resp B/P (MAP) Pulse Ox O2 Delivery O2 Flow Rate FiO2 08/06/19 08:00 132 13 84/58 (67) 95 Room Air 08/06/19 07:00 2.0 08/06/19 04:00 97.7 97.7 Intake and Output 08/06/19 07:00 Intake Total 2380.36 ml Output Total 4020 ml Balance -1639.64 ml IV Total 1880.36 ml Tube Feeding 500 ml Output Urine Total 4020 ml Physical Exam Heart: Normal S1, Normal S2 General: Alert, Oriented X3 Lungs: Clear to auscultation Neuro: Normal speech Psych/Mental Status: Mental status NL Assessment Assessment Problems Medical Problems: (1) Anemia Status: Acute (2) Deep vein thrombosis of right lower extremity Status: Acute (3) Hypertension Status: Acute (4) Hypotension Status: Acute (5) Metastatic lung cancer (metastasis from lung to other site) Status: Acute (6) 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 He is on treatment with Keytruda under the direction of his oncologist, Dr. Leonardo in [place]. I have advised him to continue to follow up with his oncologist upon discharge for continued management. He has received 2 cycles so far and he will get a third cycle and then get a scan to evaluate for response. 2. Pathologic fracture of the left femoral diaphysis thought to be due to bone metastasis. Appreciate Orthopedics consultation, s/p surgery 08/03/19. s/p left hip treatment of intertrochanteric femoral fracture with intramedullary implant, with interlocking screws 3. Deep venous thrombosis of the right lower extremity due to underlying malignancy. He is not a candidate for anticoagulation because of recent GI bleed from small bowel ulcer. He underwent IVC filter placement on 08/02/2019. Venous Doppler of the right lower extremity on 08/02/2019 revealed occlusive thrombus from the right common femoral vein through the calf veins. Left lower extremity veins are patent. 4. PE 08/03/19: CTA revealed Extensive bilateral pulmonary emboli as described above. There may be subpleural pulmonary infarcts present. 4 cm left upper lobe apical mass concerning for lung malignancy or metastatic disease. Extensive thoracic metastatic disease with bulky mediastinal and hilar adenopathy as well as lytic bone lesions with extraosseous soft tissue extension as described above. I d/w Dr Moreno and I agree that risks of anticoagulation outweighs benefits in view of recent GI bleed. 5. Anemia due to recent GI bleed and hip fracture. I will check iron studies and B12. Continue to monitor hemoglobin and transfuse as needed. Hb 8.8 on 08/06/19, monitor. 6. Hypotension, multifactorial. I agree to obtain CT angiogram of the chest to rule out pulmonary embolism. I suspect that he may also have bleeding at that site of the fracture. Continue monitoring. Comment Review of Relevant I have reviewed the following items candida (where applicable) has been applied. Labs Laboratory Tests Test 08/04/19 09:40 08/05/19 06:20 08/05/19 11:20 08/05/19 16:40 O2 Saturation 94 % (92-99) Arterial Blood pH 7.46 (7.35-7.45) Arterial Blood pCO2 at Patient Temp 31 mmHg (35-46) Arterial Blood pO2 at Patient Temp 72 mmHg (65-108) Arterial Blood HCO3 22 mmol/L (21-28) Arterial Blood Base Excess -1 mmol/L (-3-3) White Blood Count 7.9 x10^3/uL (4.0-11.0) Red Blood Count 2.98 x10^6/uL (4.30-5.70) Hemoglobin 8.8 g/dL (13.0-17.5) Hematocrit 26.4 % (39.0-53.0) Mean Corpuscular Volume 88 fL (79-100) Mean Corpuscular Hemoglobin 30 pg (25-35) Mean Corpuscular Hemoglobin Concent 33 g/dL (31-37) Red Cell Distribution Width 15.4 % (11.5-14.5) Platelet Count 120 x10^3/uL (140-400) Neutrophils (%) (Auto) 89 % (31-73) Lymphocytes (%) (Auto) 7 % (24-48) Monocytes (%) (Auto) 4 % (0-9) Eosinophils (%) (Auto) 0 % (0-3) Basophils (%) (Auto) 0 % (0-3) Neutrophils # (Auto) 7.0 x10^3/uL (1.8-7.7) Lymphocytes # (Auto) 0.6 x10^3/uL (1.0-4.8) Monocytes # (Auto) 0.3 x10^3/uL (0.0-1.1) Eosinophils # (Auto) 0.0 x10^3/uL (0.0-0.7) Basophils # (Auto) 0.0 x10^3/uL (0.0-0.2) Sodium Level 147 mmol/L (136-145) 145 mmol/L (136-145) 147 mmol/L (136-145) Potassium Level 2.8 mmol/L (3.5-5.1) 3.1 mmol/L (3.5-5.1) 3.5 mmol/L (3.5-5.1) Chloride Level 111 mmol/L (98-107) 112 mmol/L (98-107) 112 mmol/L (98-107) Carbon Dioxide Level 24 mmol/L (21-32) 27 mmol/L (21-32) 25 mmol/L (21-32) Anion Gap 12 (6-14) 6 (6-14) 10 (6-14) Blood Urea Nitrogen 6 mg/dL (8-26) 5 mg/dL (8-26) 6 mg/dL (8-26) Creatinine 0.7 mg/dL (0.7-1.3) 0.6 mg/dL (0.7-1.3) 0.6 mg/dL (0.7-1.3) Estimated GFR (Cockcroft-Gault) 115.4 137.9 137.9 Glucose Level 125 mg/dL (70-99) 97 mg/dL (70-99) 121 mg/dL (70-99) Calcium Level 7.2 mg/dL (8.5-10.1) 7.2 mg/dL (8.5-10.1) 6.9 mg/dL (8.5-10.1) Magnesium Level 1.5 mg/dL (1.8-2.4) 2.3 mg/dL (1.8-2.4) Test 08/06/19 06:00 White Blood Count 8.3 x10^3/uL (4.0-11.0) Red Blood Count 2.97 x10^6/uL (4.30-5.70) Hemoglobin 8.8 g/dL (13.0-17.5) Hematocrit 26.4 % (39.0-53.0) Mean Corpuscular Volume 89 fL (79-100) Mean Corpuscular Hemoglobin 30 pg (25-35) Mean Corpuscular Hemoglobin Concent 33 g/dL (31-37) Red Cell Distribution Width 15.0 % (11.5-14.5) Platelet Count 109 x10^3/uL (140-400) Neutrophils (%) (Auto) 87 % (31-73) Lymphocytes (%) (Auto) 8 % (24-48) Monocytes (%) (Auto) 4 % (0-9) Eosinophils (%) (Auto) 0 % (0-3) Basophils (%) (Auto) 1 % (0-3) Neutrophils # (Auto) 7.2 x10^3/uL (1.8-7.7) Lymphocytes # (Auto) 0.7 x10^3/uL (1.0-4.8) Monocytes # (Auto) 0.3 x10^3/uL (0.0-1.1) Eosinophils # (Auto) 0.0 x10^3/uL (0.0-0.7) Basophils # (Auto) 0.1 x10^3/uL (0.0-0.2) Sodium Level 147 mmol/L (136-145) Potassium Level 3.2 mmol/L (3.5-5.1) Chloride Level 113 mmol/L (98-107) Carbon Dioxide Level 25 mmol/L (21-32) Anion Gap 9 (6-14) Blood Urea Nitrogen 6 mg/dL (8-26) Creatinine 0.6 mg/dL (0.7-1.3) Estimated GFR (Cockcroft-Gault) 137.9 BUN/Creatinine Ratio 10 (6-20) Glucose Level 90 mg/dL (70-99) Calcium Level 7.3 mg/dL (8.5-10.1) Magnesium Level 2.0 mg/dL (1.8-2.4) Total Bilirubin 0.4 mg/dL (0.2-1.0) Aspartate Amino Transf (AST/SGOT) 42 U/L (15-37) Alanine Aminotransferase (ALT/SGPT) 17 U/L (16-63) Alkaline Phosphatase 124 U/L (46-116) Total Protein 4.7 g/dL (6.4-8.2) Albumin 1.0 g/dL (3.4-5.0) Albumin/Globulin Ratio 0.3 (1.0-1.7) Laboratory Tests Test 08/05/19 11:20 08/05/19 16:40 08/06/19 06:00 Sodium Level 145 mmol/L (136-145) 147 mmol/L (136-145) 147 mmol/L (136-145) Potassium Level 3.1 mmol/L (3.5-5.1) 3.5 mmol/L (3.5-5.1) 3.2 mmol/L (3.5-5.1) Chloride Level 112 mmol/L (98-107) 112 mmol/L (98-107) 113 mmol/L (98-107) Carbon Dioxide Level 27 mmol/L (21-32) 25 mmol/L (21-32) 25 mmol/L (21-32) Anion Gap 6 (6-14) 10 (6-14) 9 (6-14) Blood Urea Nitrogen 5 mg/dL (8-26) 6 mg/dL (8-26) 6 mg/dL (8-26) Creatinine 0.6 mg/dL (0.7-1.3) 0.6 mg/dL (0.7-1.3) 0.6 mg/dL (0.7-1.3) Estimated GFR (Cockcroft-Gault) 137.9 137.9 137.9 Glucose Level 97 mg/dL (70-99) 121 mg/dL (70-99) 90 mg/dL (70-99) Calcium Level 7.2 mg/dL (8.5-10.1) 6.9 mg/dL (8.5-10.1) 7.3 mg/dL (8.5-10.1) Magnesium Level 1.5 mg/dL (1.8-2.4) 2.3 mg/dL (1.8-2.4) 2.0 mg/dL (1.8-2.4) White Blood Count 8.3 x10^3/uL (4.0-11.0) Red Blood Count 2.97 x10^6/uL (4.30-5.70) Hemoglobin 8.8 g/dL (13.0-17.5) Hematocrit 26.4 % (39.0-53.0) Mean Corpuscular Volume 89 fL (79-100) Mean Corpuscular Hemoglobin 30 pg (25-35) Mean Corpuscular Hemoglobin Concent 33 g/dL (31-37) Red Cell Distribution Width 15.0 % (11.5-14.5) Platelet Count 109 x10^3/uL (140-400) Neutrophils (%) (Auto) 87 % (31-73) Lymphocytes (%) (Auto) 8 % (24-48) Monocytes (%) (Auto) 4 % (0-9) Eosinophils (%) (Auto) 0 % (0-3) Basophils (%) (Auto) 1 % (0-3) Neutrophils # (Auto) 7.2 x10^3/uL (1.8-7.7) Lymphocytes # (Auto) 0.7 x10^3/uL (1.0-4.8) Monocytes # (Auto) 0.3 x10^3/uL (0.0-1.1) Eosinophils # (Auto) 0.0 x10^3/uL (0.0-0.7) Basophils # (Auto) 0.1 x10^3/uL (0.0-0.2) BUN/Creatinine Ratio 10 (6-20) Total Bilirubin 0.4 mg/dL (0.2-1.0) Aspartate Amino Transf (AST/SGOT) 42 U/L (15-37) Alanine Aminotransferase (ALT/SGPT) 17 U/L (16-63) Alkaline Phosphatase 124 U/L (46-116) Total Protein 4.7 g/dL (6.4-8.2) Albumin 1.0 g/dL (3.4-5.0) Albumin/Globulin Ratio 0.3 (1.0-1.7) Microbiology 08/02/19 Blood Culture - Preliminary, Resulted NO GROWTH AFTER 3 DAYS Medications Current Medications Sodium Chloride 1,000 ml @ 1,000 mls/hr Q1H IV Last administered on 08/02/19at 16:16; Start 08/02/19 at 16:16; Stop 08/02/19 at 17:15; Status DC Ceftriaxone Sodium (Rocephin) 1 gm 1X ONCE IVP ; Start 08/02/19 at 17:45; Stop 08/02/19 at 17:46; Status DC Sodium Chloride 1,000 ml @ 1,000 mls/hr 1X ONCE IV Last administered on 08/02/19at 17:45; Start 08/02/19 at 17:45; Stop 08/02/19 at 18:44; Status DC Sodium Chloride 1,000 ml @ 150 mls/hr Q6H40M IV Last administered on 08/02/19at 18:20; Start 08/02/19 at 17:35; Stop 08/02/19 at 20:29; Status DC Norepinephrine Bitartrate 250 ml @ 29.512 mls/ hr CONT PRN IV SEE I/O RECORD Last administered on 08/04/19at 17:41; Start 08/02/19 at 19:15 Sodium Chloride 1,000 ml @ 100 mls/hr Q10H IV Last administered on 08/04/19at 06:01; Start 08/02/19 at 20:30; Stop 08/04/19 at 10:40; Status DC Fentanyl Citrate (Fentanyl 2ml Vial) 25 mcg PRN Q2HR PRN IVP MODERATE TO SEVERE PAIN Last administered on 08/05/19at 22:46; Start 08/02/19 at 20:30 Potassium Chloride/Water 50 ml @ 50 mls/hr Q1H IV Last administered on 08/03/19at 09:26; Start 08/03/19 at 07:00; Stop 08/03/19 at 09:59; Status DC Magnesium Sulfate 50 ml @ 25 mls/hr 1X ONCE IV Last administered on 08/03/19at 10:29; Start 08/03/19 at 11:00; Stop 08/03/19 at 12:59; Status DC Iohexol (Omnipaque 350 Mg/ml) 100 ml 1X ONCE IV Last administered on 08/03/19at 11:30; Start 08/03/19 at 11:30; Stop 08/03/19 at 11:31; Status DC Info (CONTRAST GIVEN -- Rx MONITORING) 1 each PRN DAILY PRN MC SEE COMMENTS; Start 08/03/19 at 11:30; Stop 08/05/19 at 11:29; Status DC Cefazolin Sodium 3 gm/Dextrose 100 ml @ 200 mls/hr 1X PREOP PRN IV PRIOR TO PROCEDURE; Start 08/03/19 at 14:00; Stop 08/03/19 at 18:00; Status DC Rocuronium [place] (Zemuron) 50 mg STK-MED ONCE .ROUTE ; Start 08/03/19 at 14:36; Stop 08/03/19 at 14:37; Status DC Fentanyl Citrate (Fentanyl 2ml Vial) 100 mcg STK-MED ONCE .ROUTE ; Start 08/03/19 at 14:36; Stop 08/03/19 at 14:37; Status DC Ondansetron HCl (Zofran) 4 mg STK-MED ONCE .ROUTE ; Start 08/03/19 at 14:37; Stop 08/03/19 at 14:37; Status DC Dexamethasone Sodium Phosphate (Decadron) 4 mg STK-MED ONCE .ROUTE ; Start 08/03/19 at 14:37; Stop 08/03/19 at 14:37; Status DC Etomidate (Amidate) 20 mg STK-MED ONCE IV ; Start 08/03/19 at 14:37; Stop 08/03/19 at 14:37; Status DC Ropivacaine 53.3 ml/Epinephrine HCl 0.6 mg/ Morphine Sulfate 5 mg/Sodium Chloride 100 ml @ 100 mls/hr 1X ONCE INT ART Last administered on 08/03/19at 15:51; Start 08/03/19 at 16:00; Stop 08/03/19 at 16:59; Status DC Rocuronium [place] (Zemuron) 50 mg STK-MED ONCE .ROUTE ; Start 08/03/19 at 15:39; Stop 08/03/19 at 15:39; Status DC Phenylephrine HCl (PHENYLEPHRINE in 0.9% NACL PF) 1 mg STK-MED ONCE IV ; Start 08/03/19 at 15:48; Stop 08/03/19 at 15:49; Status DC Phenylephrine HCl (PHENYLEPHRINE in 0.9% NACL PF) 1 mg STK-MED ONCE IV ; Start 08/03/19 at 15:48; Stop 08/03/19 at 15:49; Status DC Esmolol HCl (Brevibloc) 100 mg STK-MED ONCE IVP ; Start 08/03/19 at 16:35; Stop 08/03/19 at 16:35; Status DC Phenylephrine HCl (Italo-Synephrine Inj) 10 mg STK-MED ONCE .ROUTE ; Start 08/03/19 at 16:49; Stop 08/03/19 at 16:49; Status DC Propofol 100 ml @ As Directed STK-MED ONCE IV ; Start 08/03/19 at 18:30; Stop 08/03/19 at 18:31; Status DC Propofol 100 ml @ 2.123 mls/ hr CONT PRN IV SEE I/O RECORD Last administered on 08/04/19at 06:37; Start 08/03/19 at 18:45 Cefazolin Sodium 3 gm/Dextrose 100 ml @ 200 mls/hr Q8H IV Last administered on 08/04/19at 14:23; Start 08/03/19 at 23:00; Stop 08/04/19 at 15:29; Status DC Phenylephrine HCl (Italo-Synephrine Inj) 10 mg STK-MED ONCE .ROUTE ; Start 08/03/19 at 18:47; Stop 08/03/19 at 18:47; Status DC Sevoflurane (Ultane) 90 ml STK-MED ONCE IH ; Start 08/03/19 at 18:50; Stop 08/03/19 at 18:51; Status DC Fentanyl Citrate 30 ml @ 0 mls/hr CONT PRN IV SEE PROTOCOL Last administered on 08/04/19at 01:45; Start 08/03/19 at 20:00 Famotidine (Pepcid Vial) 20 mg BID IVP Last administered on 08/06/19at 07:52; Start 08/04/19 at 10:00 Potassium Chloride/Dextrose/ Sod Cl 1,000 ml @ 100 mls/hr Q10H IV Last administered on 08/05/19at 07:54; Start 08/04/19 at 10:30; Stop 08/05/19 at 17:51; Status DC Potassium Chloride/Water 50 ml @ 50 mls/hr 1X ONCE IV Last administered on 08/04/19at 11:13; Start 08/04/19 at 10:30; Stop 08/04/19 at 11:29; Status DC Haloperidol Lactate (Haldol Inj) 1 mg PRN Q6HRS PRN IVP AGITATION, 2ND CHOICE Last administered on 08/04/19 12:43; Start 08/04/19 at 12:45 Haloperidol Lactate (Haldol Inj) 0.5 mg PRN Q6HRS PRN IVP AGITATION, 1ST CHOICE Last administered on 08/04/19 14:48; Start 08/04/19 at 12:45 Amiodarone HCl 150 mg/Dextrose 103 ml @ 618 mls/hr 1X ONCE IV Last adm inistered on 08/04/19 17:29; Start 08/04/19 at 17:30; Stop 08/04/19 at 17:39; Status DC Digoxin (Lanoxin) 500 mcg PRN 1X PRN IV TACHYCARDIA Last administered on 08/04/19 17:52; Start 08/04/19 at 17:45 Midazolam HCl (Versed) 2 mg 1X ONCE IV Last administered on 08/04/19 18:47; Start 08/04/19 at 18:45; Stop 08/04/19 at 18:46; Status DC Phenylephrine HCl 20 mg/Sodium Chloride 252 ml @ 52.466 mls/ hr CONT PRN IV SEE I/O RECORD Last administered on 08/05/19 12:00; Start 08/04/19 at 18:45; Stop 08/05/19 at 13:34; Status DC Fentanyl Citrate (Fentanyl 2ml Vial) 50 mcg 1X ONCE IVP Last administered on 08/04/19 18:47; Start 08/04/19 at 18:45; Stop 08/04/19 at 18:46; Status DC Metoprolol Tartrate (Lopressor Vial) 5 mg PRN Q6HRS PRN IVP TACHYCARDIA Last administered on 08/05/19 22:45; Start 08/05/19 at 03:45 Amiodarone HCl 150 mg/Dextrose 103 ml @ 618 mls/hr 1X ONCE IV Last administered on 08/05/19 04:29; Start 08/05/19 at 04:00; Stop 08/05/19 at 04:09; Status DC Potassium Chloride (Klor-Con) 20 meq 1X ONCE PO Last administered on 08/05/19 07:54; Start 08/05/19 at 08:00; Stop 08/05/19 at 08:01; Status DC Potassium Chloride/Water 50 ml @ 50 mls/hr Q1H IV Last administered on 08/05/19at 09:07; Start 08/05/19 at 08:00; Stop 08/05/19 at 09:59; Status DC Potassium Chloride/Water 50 ml @ 50 mls/hr Q1H IV Last administered on 08/05/19at 14:37; Start 08/05/19 at 13:00; Stop 08/05/19 at 14:59; Status DC Magnesium Sulfate 100 ml @ 50 mls/hr DAILY IV Last administered on 08/06/19at 07:52; Start 08/05/19 at 13:00; Stop 08/09/19 at 12:59 Phenylephrine HCl 80 mg/Sodium Chloride 258 ml @ 13.545 mls/ hr CONT PRN IV SEE I/O RECORD Last administered on 08/06/19at 00:01; Start 08/05/19 at 13:45 Potassium Chloride/Water 50 ml @ 50 mls/hr Q1H IV Last administered on 08/06/19at 09:01; Start 08/06/19 at 08:00; Stop 08/06/19 at 09:59 Active Scripts Active Reported Losartan Potassium (Losartan Potassium) 25 Mg Tablet 100 Mg PO DAILY 90 Days Gabapentin (Gabapentin) 300 Mg Capsule 300 Mg PO BID Furosemide 40 Mg Tablet 40 Mg PO DAILY Escitalopram Oxalate 10 Mg Tablet 10 Mg PO DAILY Amlodipine Besylate 5 Mg Tablet 5 Mg PO DAILY Acetaminophen 500 Mg Tablet 325 Mg PO PRN Oxycodone Hcl 5 Mg Capsule 5 Mg PO PRN Q4HRS PRN Flomax (Tamsulosin Hcl) 0.4 Mg Cap.er.24h 0.4 Mg PO DAILY Pantoprazole Sodium (Pantoprazole Sodium) 40 Mg Tablet.dr 40 Mg PO DAILYAC Modafinil 200 Mg Tablet 200 Mg PO DAILY Levetiracetam 500 Mg Tablet 500 Mg PO BID FENTANYL 25mcg/hr (Fentanyl) 1 Each Patch.td72 1 Patch TD Q72H Senna Lax (Sennosides) 8.6 Mg Tablet 8.6 Mg PO PRN Atorvastatin Calcium 10 Mg Tablet 10 Mg PO HS Polyethylene Glycol 3350 2,500 Gm Powder 17 Gm PO DAILY NITROGLYCERIN SubLingual (Nitroglycerin) 0.4 Mg Tab.subl 0.4 Mg SL PRN Q5MIN PRN Metoprolol Succinate ( Xl ) (Metoprolol Succinate) 25 Mg Tab.er.24h 50 Mg PO DAILY Loperamide (Loperamide Hcl) 2 Mg Tablet 2 Mg PO PRN Hydrochlorothiazide Capsule (Hydrochlorothiazide) 12.5 Mg Capsule 12.5 Mg PO DAILY Vitals/I & O Vital Sign - Last 24 Hours 08/05/19 08/05/19 08/05/19 08/05/19 09:15 09:30 09:45 10:00 Pulse 128 128 126 124 Resp 15 B/P (MAP) 78/47 (57) 104/58 (73) 110/70 (83) 110/70 (83) O2 Delivery Nasal Cannula O2 Flow Rate 2.0 08/05/19 08/05/19 08/05/19 08/05/19 11:00 12:00 12:00 13:00 Temp 98.5 98.5 Pulse 124 126 128 Resp 17 16 16 B/P (MAP) 94/66 (75) 101/55 (70) 102/59 (73) O2 Delivery Nasal Cannula Nasal Cannula Nasal Cannula Nasal Cannula O2 Flow Rate 2.0 2.0 2.0 2.0 08/05/19 08/05/19 08/05/19 08/05/19 14:00 14:15 14:30 14:45 Pulse 130 129 130 130 Resp 20 B/P (MAP) 116/68 (84) 79/58 (65) 87/64 (72) 57/46 (50) O2 Delivery Nasal Cannula O2 Flow Rate 2.0 08/05/19 08/05/19 08/05/19 08/05/19 15:00 16:00 16:00 16:00 Temp 99.2 99.2 Pulse 126 126 Resp 20 B/P (MAP) 96/63 (74) 90/46 (61) O2 Delivery Nasal Cannula Nasal Cannula Nasal Cannula O2 Flow Rate 2.0 2.0 2.0 08/05/19 08/05/19 08/05/19 08/05/19 17:08 18:00 19:00 20:00 Temp 98.5 98.5 Pulse 128 130 133 133 Resp 17 19 B/P (MAP) 99/58 (72) 64/53 (57) 110/66 (81) 102/71 (81) Pulse Ox 98 O2 Delivery Nasal Cannula Nasal Cannula Nasal Cannula Nasal Cannula O2 Flow Rate 2.0 2.0 2.0 2.0 08/05/19 08/05/19 08/05/19 08/05/19 20:00 21:00 22:00 22:45 Pulse 132 128 136 Resp 20 22 B/P (MAP) 97/70 (79) 104/72 (83) 104/72 Pulse Ox 96 97 O2 Delivery Nasal Cannula Nasal Cannula Nasal Cannula O2 Flow Rate 2.0 2.0 2.0 08/05/19 08/05/19 08/05/19 08/05/19 22:46 23:00 23:16 23:59 Pulse 136 Resp 25 24 24 B/P (MAP) 108/71 (83) Pulse Ox 97 95 97 O2 Delivery Nasal Cannula Nasal Cannula Nasal Cannula Nasal Cannula O2 Flow Rate 2.0 2.0 2.0 2.0 08/06/19 08/06/19 08/06/19 08/06/19 00:01 01:00 02:00 03:00 Temp 97.9 97.9 Pulse 128 129 128 130 Resp 19 17 25 19 B/P (MAP) 120/57 (78) 113/64 (80) 119/68 (85) 100/70 (80) Pulse Ox 98 95 95 97 O2 Delivery Nasal Cannula Nasal Cannula Nasal Cannula Nasal Cannula O2 Flow Rate 2.0 2.0 2.0 2.0 08/06/19 08/06/19 08/06/19 08/06/19 04:00 04:00 05:00 06:00 Temp 97.7 97.7 Pulse 130 129 133 Resp 19 18 13 B/P (MAP) 106/57 (73) 112/75 (87) 95/68 (77) Pulse Ox 97 94 95 O2 Delivery Nasal Cannula Nasal Cannula Nasal Cannula Nasal Cannula O2 Flow Rate 2.0 2.0 2.0 2.0 08/06/19 08/06/19 08/06/19 07:00 08:00 08:00 Pulse 132 132 Resp 13 13 B/P (MAP) 100/60 (73) 84/58 (67) Pulse Ox 95 95 O2 Delivery Nasal Cannula Room Air Room Air O2 Flow Rate 2.0 Intake and Output 08/05/19 08/05/19 08/06/19 15:00 23:00 07:00 Intake Total 1253 ml 630 ml 497.36 ml Output Total 2335 ml 730 ml 955 ml Balance -1082 ml -100 ml -457.64 ml Nutrition Consultation Dietary Evaluation: Recommendations by RD: Increase Calorie Intake, Protein supplementation Comments: REC regular diet, honor food preferences, and provide snacks as requested REC Ensure (chocolate) w/lunch trays Expected Outcomes/Goals: PO intake to meet >75% est needs Interpretation of weight loss: >7.5% in 3 months Malnutrition Findings: Food and Nutrition Intake (Sev: <50% est energy req 5days Weight Status: Obese KATHIE MACIAS MD Aug 06, 2019 09:15
--- NOTE | 2019-08-06 09:26 | PDOC ---
IM PROGRESS NOTES- Subjective Subjective No Complaints of pain or dyspnea.Has been coughing.Still on Levophed. Eating but not hungry. Objective Vitals/I&O Vital Signs Date Time Temp Pulse Resp B/P (MAP) Pulse Ox O2 Delivery O2 Flow Rate FiO2 08/06/19 08:00 132 13 84/58 (67) 95 Room Air 08/06/19 07:00 2.0 08/06/19 04:00 97.7 97.7 I & O 08/05/19 08/05/19 08/06/19 15:00 23:00 07:00 Intake Total 1253 ml 630 ml 497.36 ml Output Total 2335 ml 730 ml 955 ml Balance -1082 ml -100 ml -457.64 ml Physical Exam Physical Exam General appearance - alert,ill appearing, and in no distress and oriented to pe rson, place, and time Mental Status - alert, oriented to person, place, and time, affect appropriate to mood Head - normal Chest -decreased breath sounds at bases Heart - S1 and S2 normal Abdomen - soft, non tender, Neurological - alert and oriented Musculoskeletal - no muscular tenderness noted Extremities - 3+edema of the lower extremities right greater than left Skin - warm and dry Labs Laboratory Tests Test 08/05/19 11:20 08/05/19 16:40 08/06/19 06:00 Sodium Level 145 mmol/L (136-145) 147 mmol/L (136-145) H 147 mmol/L (136-145) H Potassium Level 3.1 mmol/L (3.5-5.1) L 3.5 mmol/L (3.5-5.1) 3.2 mmol/L (3.5-5.1) L Chloride Level 112 mmol/L (98-107) H 112 mmol/L (98-107) H 113 mmol/L (98-107) H Carbon Dioxide Level 27 mmol/L (21-32) 25 mmol/L (21-32) 25 mmol/L (21-32) Anion Gap 6 (6-14) 10 (6-14) 9 (6-14) Blood Urea Nitrogen 5 mg/dL (8-26) L 6 mg/dL (8-26) L 6 mg/dL (8-26) L Creatinine 0.6 mg/dL (0.7-1.3) L 0.6 mg/dL (0.7-1.3) L 0.6 mg/dL (0.7-1.3) L Estimated GFR (Cockcroft-Gault) 137.9 137.9 137.9 Glucose Level 97 mg/dL (70-99) 121 mg/dL (70-99) H 90 mg/dL (70-99) Calcium Level 7.2 mg/dL (8.5-10.1) L 6.9 mg/dL (8.5-10.1) L 7.3 mg/dL (8.5-10.1) L Magnesium Level 1.5 mg/dL (1.8-2.4) L 2.3 mg/dL (1.8-2.4) 2.0 mg/dL (1.8-2.4) White Blood Count 8.3 x10^3/uL (4.0-11.0) Red Blood Count 2.97 x10^6/uL (4.30-5.70) L Hemoglobin 8.8 g/dL (13.0-17.5) L Hematocrit 26.4 % (39.0-53.0) L Mean Corpuscular Volume 89 fL (79-100) Mean Corpuscular Hemoglobin 30 pg (25-35) Mean Corpuscular Hemoglobin Concent 33 g/dL (31-37) Red Cell Distribution Width 15.0 % (11.5-14.5) H Platelet Count 109 x10^3/uL (140-400) L Neutrophils (%) (Auto) 87 % (31-73) H Lymphocytes (%) (Auto) 8 % (24-48) L Monocytes (%) (Auto) 4 % (0-9) Eosinophils (%) (Auto) 0 % (0-3) Basophils (%) (Auto) 1 % (0-3) Neutrophils # (Auto) 7.2 x10^3/uL (1.8-7.7) Lymphocytes # (Auto) 0.7 x10^3/uL (1.0-4.8) L Monocytes # (Auto) 0.3 x10^3/uL (0.0-1.1) Eosinophils # (Auto) 0.0 x10^3/uL (0.0-0.7) Basophils # (Auto) 0.1 x10^3/uL (0.0-0.2) BUN/Creatinine Ratio 10 (6-20) Total Bilirubin 0.4 mg/dL (0.2-1.0) Aspartate Amino Transferase (AST) 42 U/L (15-37) H Alanine Aminotransferase (ALT) 17 U/L (16-63) Alkaline Phosphatase 124 U/L (46-116) H Total Protein 4.7 g/dL (6.4-8.2) L Albumin 1.0 g/dL (3.4-5.0) L Albumin/Globulin Ratio 0.3 (1.0-1.7) L Laboratory Tests 08/06/19 06:00 Laboratory Tests 08/05/19 11:20 08/05/19 16:40 08/06/19 06:00 Meds Current Medications Medications (Trade) Dose Ordered Sig/Ryan Route PRN Reason Start Time Stop Time Status Last Admin Dose Admin Potassium Chloride/Water 50 ml @ 50 mls/hr Q1H IV 08/05/19 13:00 08/05/19 14:59 DC 08/05/19 14:37 Magnesium Sulfate 100 ml @ 50 mls/hr DAILY IV 08/05/19 13:00 08/09/19 12:59 08/06/19 07:52 Phenylephrine HCl 80 mg/Sodium Chloride 258 ml @ 13.545 mls/ hr CONT PRN IV SEE I/O RECORD 08/05/19 13:45 08/06/19 00:01 Potassium Chloride/Water 50 ml @ 50 mls/hr Q1H IV 08/06/19 08:00 08/06/19 09:59 08/06/19 09:01 Assessment Assessment Problems Medical Problems: (1) Anemia Status: Acute (2) Hypertension Status: Acute (3) Metastatic lung cancer (metastasis from lung to other site) Status: Acute (4) Sepsis Status: Acute FINAL IMPRESSION: 1. Pathological fracture of the left femur. 2. Lung cancer with metastasis, squamous cell.stage 4. 3. Deep venous thrombosis, right leg. 4. Anemia requiring transfusion. 5. Hypotension. 6. History of lung cancer with metastasis to the brain and to the lumbar spine, had a chemo as well as radiation treatment. 5. Supra ventricular tachycardia, heart rate around 140, probably multiple factors, slight bump in troponin 0.1. 6 .Brain and spine mets s/p radiation 7.Pulmonary Embolism 8. Hypokalemia 9. Anasarca PLAN: POD #1 S/P femur surgery, nailing. dvt leg s/p IVC filter. PE not a cadidate for anticoagulation due to gi bleed. hypotension on Levophed. extubated this morning iv fluids . recent chemo.Ketruda 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, left femur, initial encounter for fracture Post-Op Diagnosis: same Procedure: * CPT 98338 left hip treatment of intertrochanteric femoral fracture with intramedullary implant, with interlocking screws Surgeon: Imtiaz Eduardo MD Pain Management Nurse: DIANE Crum Anesthesia Type: General EBL: 700 mL Fluids: 2u PRBCs, 2200 crystalloid Specimens Obtained: none Complications: none Right lower extremity DVT- 7 had an IVC filter placed. Patient is not a candidate for anticoagulation due to recent duodenal ulcer with bleeding. Pulmonary embolism. Also had some pulmonary infarcts that are subpleural. Not a candidate for anticoagulation. Lung cancer with extensive metastasis. Patient was treated with Keytruda previously. Hypotension on Levophed Hypokalemia- replace potassium,placed on K protocol.K 3.2 Hypernatremia Supra ventricular tachycardia. Followed by drywall sander.Cardioverted Severe malnutrition- Albumin 1. Edema- legs weeping with blisters. Echocardiogram The left ventricular systolic function is normal and the ejection fraction is within normal range. The Ejection Fraction is 50-55%. There is normal LV segmental wall motion. The right ventricle is mildly dilated. Doppler and Color Flow revealed trace tricuspid regurgitation with an estimated PAP of 42 mmHg. There is a trace pericardial effusion. Anasarca- may need Lasix but has hypotension and hypokalemia.If better,give IV Albumin with one dose of Lasix later today. Anemia- monitor Dysphagia- advance to regular diet. Prognosis is very poor. Recheck labs in a.m. If stable,discharge to [facility] tomorrow. Thrombocytopenia- monitor. Plan Plan For more details regarding further plans, please refer to the orders. Nutrition Consultation Dietary Evaluation: Recommendations by RD: Increase Calorie Intake, Protein supplementation Comments: REC regular diet, honor food preferences, and provide snacks as requested REC Ensure (chocolate) w/lunch trays Expected Outcomes/Goals: PO intake to meet >75% est needs Interpretation of weight loss: >7.5% in 3 months Malnutrition Findings: Food and Nutrition Intake (Sev: <50% est energy req 5days Weight Status: Obese ISIAH GREGORY MD Aug 06, 2019 09:26
[2019-08-06] MEDS: fentaNYL PF VIAL 100 MCG/2 ML VIAL IVP PRN ×3 (12:08→22:12)
[2019-08-06 13:29] LABS: CREATININE 0.6 mg/dL (0.7-1.3); GFR 137.9; MAGNESIUM 2.1 mg/dL (1.8-2.4); POTASSIUM 3.7 mmol/L (3.5-5.1)
[2019-08-06] MEDS ORDERED: ALBUMIN HUMAN 25% 50 ML IV ONE (13:45)
--- NOTE | 2019-08-06 15:23 | PDOC ---
PULMONARY PROGRESS NOTES Subjective FEELS BETTER LESS SOA PT DID WELL ON TRIAL YESTERDAY EXTUBATED NO RESP COMPLAINTS NOW Vitals Vital Signs Date Time Temp Pulse Resp B/P (MAP) Pulse Ox O2 Delivery O2 Flow Rate FiO2 08/06/19 14:00 132 25 99/54 (69) 91 Room Air 2.0 08/06/19 04:00 97.7 97.7 ROS: No Nausea, No Chest Pain, No Abdominal Pain General: Alert Lungs: Clear Cardiovascular: S1, S2 Abdomen: Soft, Non-tender Neuro Exam: Alert Extremities: Other (EDEMA) Skin: Warm Labs Laboratory Tests Test 08/05/19 06:20 08/05/19 11:20 08/05/19 16:40 08/06/19 06:00 White Blood Count 7.9 x10^3/uL (4.0-11.0) 8.3 x10^3/uL (4.0-11.0) Red Blood Count 2.98 x10^6/uL (4.30-5.70) 2.97 x10^6/uL (4.30-5.70) Hemoglobin 8.8 g/dL (13.0-17.5) 8.8 g/dL (13.0-17.5) Hematocrit 26.4 % (39.0-53.0) 26.4 % (39.0-53.0) Mean Corpuscular Volume 88 fL (79-100) 89 fL (79-100) Mean Corpuscular Hemoglobin 30 pg (25-35) 30 pg (25-35) Mean Corpuscular Hemoglobin Concent 33 g/dL (31-37) 33 g/dL (31-37) Red Cell Distribution Width 15.4 % (11.5-14.5) 15.0 % (11.5-14.5) Platelet Count 120 x10^3/uL (140-400) 109 x10^3/uL (140-400) Neutrophils (%) (Auto) 89 % (31-73) 87 % (31-73) Lymphocytes (%) (Auto) 7 % (24-48) 8 % (24-48) Monocytes (%) (Auto) 4 % (0-9) 4 % (0-9) Eosinophils (%) (Auto) 0 % (0-3) 0 % (0-3) Basophils (%) (Auto) 0 % (0-3) 1 % (0-3) Neutrophils # (Auto) 7.0 x10^3/uL (1.8-7.7) 7.2 x10^3/uL (1.8-7.7) Lymphocytes # (Auto) 0.6 x10^3/uL (1.0-4.8) 0.7 x10^3/uL (1.0-4.8) Monocytes # (Auto) 0.3 x10^3/uL (0.0-1.1) 0.3 x10^3/uL (0.0-1.1) Eosinophils # (Auto) 0.0 x10^3/uL (0.0-0.7) 0.0 x10^3/uL (0.0-0.7) Basophils # (Auto) 0.0 x10^3/uL (0.0-0.2) 0.1 x10^3/uL (0.0-0.2) Sodium Level 147 mmol/L (136-145) 145 mmol/L (136-145) 147 mmol/L (136-145) 147 mmol/L (136-145) Potassium Level 2.8 mmol/L (3.5-5.1) 3.1 mmol/L (3.5-5.1) 3.5 mmol/L (3.5-5.1) 3.2 mmol/L (3.5-5.1) Chloride Level 111 mmol/L (98-107) 112 mmol/L (98-107) 112 mmol/L (98-107) 113 mmol/L (98-107) Carbon Dioxide Level 24 mmol/L (21-32) 27 mmol/L (21-32) 25 mmol/L (21-32) 25 mmol/L (21-32) Anion Gap 12 (6-14) 6 (6-14) 10 (6-14) 9 (6-14) Blood Urea Nitrogen 6 mg/dL (8-26) 5 mg/dL (8-26) 6 mg/dL (8-26) 6 mg/dL (8- 26) Creatinine 0.7 mg/dL (0.7-1.3) 0.6 mg/dL (0.7-1.3) 0.6 mg/dL (0.7-1.3) 0.6 mg/dL (0.7-1.3) Estimated GFR (Cockcroft-Gault) 115.4 137.9 137.9 137.9 Glucose Level 125 mg/dL (70-99) 97 mg/dL (70-99) 121 mg/dL (70-99) 90 mg/dL (70-99) Calcium Level 7.2 mg/dL (8.5-10.1) 7.2 mg/dL (8.5-10.1) 6.9 mg/dL (8.5-10.1) 7.3 mg/dL (8.5-10.1) Magnesium Level 1.5 mg/dL (1.8-2.4) 2.3 mg/dL (1.8-2.4) 2.0 mg/dL (1.8-2.4) BUN/Creatinine Ratio 10 (6-20) Total Bilirubin 0.4 mg/dL (0.2-1.0) Aspartate Amino Transf (AST/SGOT) 42 U/L (15-37) Alanine Aminotransferase (ALT/SGPT) 17 U/L (16-63) Alkaline Phosphatase 124 U/L (46-116) Total Protein 4.7 g/dL (6.4-8.2) Albumin 1.0 g/dL (3.4-5.0) Albumin/Globulin Ratio 0.3 (1.0-1.7) Test 08/06/19 13:00 Sodium Level 144 mmol/L (136-145) Potassium Level 3.7 mmol/L (3.5-5.1) Chloride Level 109 mmol/L (98-107) Carbon Dioxide Level 26 mmol/L (21-32) Anion Gap 9 (6-14) Blood Urea Nitrogen 6 mg/dL (8-26) Creatinine 0.6 mg/dL (0.7-1.3) Estimated GFR (Cockcroft-Gault) 137.9 Glucose Level 84 mg/dL (70-99) Calcium Level 7.0 mg/dL (8.5-10.1) Magnesium Level 2.1 mg/dL (1.8-2.4) Laboratory Tests Test 08/05/19 16:40 08/06/19 06:00 08/06/19 13:00 Sodium Level 147 mmol/L (136-145) 147 mmol/L (136-145) 144 mmol/L (136-145) Potassium Level 3.5 mmol/L (3.5-5.1) 3.2 mmol/L (3.5-5.1) 3.7 mmol/L (3.5-5.1) Chloride Level 112 mmol/L (98-107) 113 mmol/L (98-107) 109 mmol/L (98-107) Carbon Dioxide Level 25 mmol/L (21-32) 25 mmol/L (21-32) 26 mmol/L (21-32) Anion Gap 10 (6-14) 9 (6-14) 9 (6-14) Blood Urea Nitrogen 6 mg/dL (8-26) 6 mg/dL (8-26) 6 mg/dL (8-26) Creatinine 0.6 mg/dL (0.7-1.3) 0.6 mg/dL (0.7-1.3) 0.6 mg/dL (0.7-1.3) Estimated GFR (Cockcroft-Gault) 137.9 137.9 137.9 Glucose Level 121 mg/dL (70-99) 90 mg/dL (70-99) 84 mg/dL (70-99) Calcium Level 6.9 mg/dL (8.5-10.1) 7.3 mg/dL (8.5-10.1) 7.0 mg/dL (8.5-10.1) Magnesium Level 2.3 mg/dL (1.8-2.4) 2.0 mg/dL (1.8-2.4) 2.1 mg/dL (1.8-2.4) White Blood Count 8.3 x10^3/uL (4.0-11.0) Red Blood Count 2.97 x10^6/uL (4.30-5.70) Hemoglobin 8.8 g/dL (13.0-17.5) Hematocrit 26.4 % (39.0-53.0) Mean Corpuscular Volume 89 fL (79-100) Mean Corpuscular Hemoglobin 30 pg (25-35) Mean Corpuscular Hemoglobin Concent 33 g/dL (31-37) Red Cell Distribution Width 15.0 % (11.5-14.5) Platelet Count 109 x10^3/uL (140-400) Neutrophils (%) (Auto) 87 % (31-73) Lymphocytes (%) (Auto) 8 % (24-48) Monocytes (%) (Auto) 4 % (0-9) Eosinophils (%) (Auto) 0 % (0-3) Basophils (%) (Auto) 1 % (0-3) Neutrophils # (Auto) 7.2 x10^3/uL (1.8-7.7) Lymphocytes # (Auto) 0.7 x10^3/uL (1.0-4.8) Monocytes # (Auto) 0.3 x10^3/uL (0.0-1.1) Eosinophils # (Auto) 0.0 x10^3/uL (0.0-0.7) Basophils # (Auto) 0.1 x10^3/uL (0.0-0.2) BUN/Creatinine Ratio 10 (6-20) Total Bilirubin 0.4 mg/dL (0.2-1.0) Aspartate Amino Transf (AST/SGOT) 42 U/L (15-37) Alanine Aminotransferase (ALT/SGPT) 17 U/L (16-63) Alkaline Phosphatase 124 U/L (46-116) Total Protein 4.7 g/dL (6.4-8.2) Albumin 1.0 g/dL (3.4-5.0) Albumin/Globulin Ratio 0.3 (1.0-1.7) Medications Active Scripts Medications Dose Route/Sig Max Daily Dose Days Date Category Losartan Potassium (Losartan Potassium) 25 Mg Tablet 100 Mg PO DAILY 90 08/04/19 Reported Gabapentin (Gabapentin) 300 Mg Capsule 300 Mg PO BID 08/04/19 Reported Furosemide 40 Mg Tablet 40 Mg PO DAILY 08/04/19 Reported Escitalopram Oxalate 10 Mg Tablet 10 Mg PO DAILY 08/04/19 Reported Amlodipine Besylate 5 Mg Tablet 5 Mg PO DAILY 08/04/19 Reported Acetaminophen 500 Mg Tablet 325 Mg PO PRN 08/04/19 Reported Oxycodone Hcl 5 Mg Capsule 5 Mg PO PRN Q4HRS PRN 08/04/19 Reported Flomax (Tamsulosin Hcl) 0.4 Mg Cap.er.24h 0.4 Mg PO DAILY 08/04/19 Reported Pantoprazole Sodium (Pantoprazole Sodium) 40 Mg Tablet.dr 40 Mg PO DAILYAC 08/04/19 Reported Modafinil 200 Mg Tablet 200 Mg PO DAILY 08/04/19 Reported Levetiracetam 500 Mg Tablet 500 Mg PO BID 08/04/19 Reported FENTANYL 25mcg/hr (Fentanyl) 1 Each Patch.td72 1 Patch TD Q72H 08/04/19 Reported Senna Lax (Sennosides) 8.6 Mg Tablet 8.6 Mg PO PRN 08/04/19 Reported Atorvastatin Calcium 10 Mg Tablet 10 Mg PO HS 08/04/19 Reported Polyethylene Glycol 3350 2,500 Gm Powder 17 Gm PO DAILY 08/04/19 Reported NITROGLYCERIN SubLingual (Nitroglycerin) 0.4 Mg Tab.subl 0.4 Mg SL PRN Q5MIN PRN 08/04/19 Reported Metoprolol Succinate ( Xl ) (Metoprolol Succinate) 25 Mg Tab.er.24h 50 Mg PO DAILY 08/04/19 Reported Loperamide (Loperamide Hcl) 2 Mg Tablet 2 Mg PO PRN 08/04/19 Reported Hydrochlorothiazide Capsule (Hydrochlorothiazide) 12.5 Mg Capsule 12.5 Mg PO DAILY 08/04/19 Reported Impression . 1. Acute Respiratory Failure 2. Metastatic squamous cell lung cancer 3. Pulmonary emboli 4. Recent GI bleed with anemia 5. Pathological femur fracture, s/p repair 6. HYPOTENSION SUSPECT LOW VOLUME Plan . D/W AND FAMILY BETTER TODAY ONCE OFF PRESSORS WILL TRANSFER BACK TO [facility] WILL CONTINUE SUPPORT NOW ON PRESSORS FOR HYPTOTENSION NO ANTICOUGULATION ORAL DIET FOLLOW CARDIOLOGY INPUT EFREN COTTRELL MD Aug 06, 2019 15:23
[2019-08-06] MEDS ORDERED: FUROSEMIDE 20 MG/2 ML VIAL. IVP ONE (19:00)
[2019-08-06] MEDS: METOPROLOL TARTRATE 5 MG/5 ML VIAL. IVP PRN (19:45)
[2019-08-07] VITALS (26 sets, daily range): BP systolic 75–118; BP diastolic 41–71
[2019-08-07 05:23] LABS: BASO % 0 % (0-3); EOS % 0 % (0-3); HEMATOCRIT 25.7 % (39.0-53.0); HEMOGLOBIN 8.5 g/dL (13.0-17.5); LYMPH # 0.8 x10^3/uL (1.0-4.8); LYMPH % 11 % (24-48); MEAN CORPUSCULAR HEMOGLOBIN 29 pg (25-35); MEAN CORPUSCULAR HGB CONC 33 g/dL (31-37); MEAN CORPUSCULAR VOLUME 89 fL (79-100); MONO # 0.3 x10^3/uL (0.0-1.1); MONO % 5 % (0-9); NEUT % 84 % (31-73); PLATELET COUNT 110 x10^3/uL (140-400); RED BLOOD COUNT 2.89 x10^6/uL (4.30-5.70); WHITE BLOOD COUNT 7.1 x10^3/uL (4.0-11.0)
[2019-08-07 06:08] LABS: ALBUMIN 1.2 g/dL (3.4-5.0); ALBUMIN/GLOBULIN RATIO 0.3 (1.0-1.7); CALCIUM 7.4 mg/dL (8.5-10.1); CREATININE 0.6 mg/dL (0.7-1.3); GFR 137.9; TOTAL BILIRUBIN 0.4 mg/dL (0.2-1.0); TOTAL PROTEIN 4.8 g/dL (6.4-8.2)
[2019-08-07 06:51] LABS: POTASSIUM 3.1 mmol/L (3.5-5.1)
--- NOTE | 2019-08-07 08:13 | NUR ---
SS following up with discharge planning. SS received notification from [facility], ; fax [phone], that insurance authorization has been received for transfer back to [facility]. Physician notified. SS will continue to follow for discharge planning.
--- NOTE | 2019-08-07 08:56 | PDOC ---
PULMONARY PROGRESS NOTES Subjective FEELS BETTER LESS SOA EXTUBATED 08/03 NO RESP COMPLAINTS NOW STILL HYPOTENSIVE SUSPECT IV DEPLETION SPOKE WITH DR GREGORY AND FAMILY D/W RN DECREASE PRESSORS D/W CARD CCT FORMULATING A PLAN, REVIEWING DATA, LABS, XRAY Vitals Vital Signs Date Time Temp Pulse Resp B/P (MAP) Pulse Ox O2 Delivery O2 Flow Rate FiO2 08/07/19 08:00 Nasal Cannula 2.0 08/07/19 07:00 130 22 94/54 (67) 98 08/07/19 04:00 98.5 98.5 ROS: No Nausea, No Chest Pain, No Abdominal Pain General: Alert Lungs: Clear Cardiovascular: S1, S2 Abdomen: Soft, Non-tender Neuro Exam: Alert Extremities: Other (EDEMA) Skin: Warm Labs Laboratory Tests Test 08/05/19 11:20 08/05/19 16:40 08/06/19 06:00 08/06/19 13:00 Sodium Level 145 mmol/L (136-145) 147 mmol/L (136-145) 147 mmol/L (136-145) 144 mmol/L (136-145) Potassium Level 3.1 mmol/L (3.5-5.1) 3.5 mmol/L (3.5-5.1) 3.2 mmol/L (3.5-5.1) 3.7 mmol/L (3.5-5.1) Chloride Level 112 mmol/L (98-107) 112 mmol/L (98-107) 113 mmol/L (98-107) 109 mmol/L (98-107) Carbon Dioxide Level 27 mmol/L (21-32) 25 mmol/L (21-32) 25 mmol/L (21-32) 26 mmol/L (21-32) Anion Gap 6 (6-14) 10 (6-14) 9 (6-14) 9 (6-14) Blood Urea Nitrogen 5 mg/dL (8-26) 6 mg/dL (8-26) 6 mg/dL (8-26) 6 mg/dL (8- 26) Creatinine 0.6 mg/dL (0.7-1.3) 0.6 mg/dL (0.7-1.3) 0.6 mg/dL (0.7-1.3) 0.6 mg/dL (0.7-1.3) Estimated GFR (Cockcroft-Gault) 137.9 137.9 137.9 137.9 Glucose Level 97 mg/dL (70-99) 121 mg/dL (70-99) 90 mg/dL (70-99) 84 mg/dL (70-99) Calcium Level 7.2 mg/dL (8.5-10.1) 6.9 mg/dL (8.5-10.1) 7.3 mg/dL (8.5-10.1) 7.0 mg/dL (8.5-10.1) Magnesium Level 1.5 mg/dL (1.8-2.4) 2.3 mg/dL (1.8-2.4) 2.0 mg/dL (1.8-2.4) 2.1 mg/dL (1.8-2.4) White Blood Count 8.3 x10^3/uL (4.0-11.0) Red Blood Count 2.97 x10^6/uL (4.30-5.70) Hemoglobin 8.8 g/dL (13.0-17.5) Hematocrit 26.4 % (39.0-53.0) Mean Corpuscular Volume 89 fL (79-100) Mean Corpuscular Hemoglobin 30 pg (25-35) Mean Corpuscular Hemoglobin Concent 33 g/dL (31-37) Red Cell Distribution Width 15.0 % (11.5-14.5) Platelet Count 109 x10^3/uL (140-400) Neutrophils (%) (Auto) 87 % (31-73) Lymphocytes (%) (Auto) 8 % (24-48) Monocytes (%) (Auto) 4 % (0-9) Eosinophils (%) (Auto) 0 % (0-3) Basophils (%) (Auto) 1 % (0-3) Neutrophils # (Auto) 7.2 x10^3/uL (1.8-7.7) Lymphocytes # (Auto) 0.7 x10^3/uL (1.0-4.8) Monocytes # (Auto) 0.3 x10^3/uL (0.0-1.1) Eosinophils # (Auto) 0.0 x10^3/uL (0.0-0.7) Basophils # (Auto) 0.1 x10^3/uL (0.0-0.2) BUN/Creatinine Ratio 10 (6-20) Total Bilirubin 0.4 mg/dL (0.2-1.0) Aspartate Amino Transf (AST/SGOT) 42 U/L (15-37) Alanine Aminotransferase (ALT/SGPT) 17 U/L (16-63) Alkaline Phosphatase 124 U/L (46-116) Total Protein 4.7 g/dL (6.4-8.2) Albumin 1.0 g/dL (3.4-5.0) Albumin/Globulin Ratio 0.3 (1.0-1.7) Test 08/07/19 05:15 White Blood Count 7.1 x10^3/uL (4.0-11.0) Red Blood Count 2.89 x10^6/uL (4.30-5.70) Hemoglobin 8.5 g/dL (13.0-17.5) Hematocrit 25.7 % (39.0-53.0) Mean Corpuscular Volume 89 fL (79-100) Mean Corpuscular Hemoglobin 29 pg (25-35) Mean Corpuscular Hemoglobin Concent 33 g/dL (31-37) Red Cell Distribution Width 15.0 % (11.5-14.5) Platelet Count 110 x10^3/uL (140-400) Neutrophils (%) (Auto) 84 % (31-73) Lymphocytes (%) (Auto) 11 % (24-48) Monocytes (%) (Auto) 5 % (0-9) Eosinophils (%) (Auto) 0 % (0-3) Basophils (%) (Auto) 0 % (0-3) Neutrophils # (Auto) 6.0 x10^3/uL (1.8-7.7) Lymphocytes # (Auto) 0.8 x10^3/uL (1.0-4.8) Monocytes # (Auto) 0.3 x10^3/uL (0.0-1.1) Eosinophils # (Auto) 0.0 x10^3/uL (0.0-0.7) Basophils # (Auto) 0.0 x10^3/uL (0.0-0.2) Sodium Level 142 mmol/L (136-145) Potassium Level 3.1 mmol/L (3.5-5.1) Chloride Level 108 mmol/L (98-107) Carbon Dioxide Level 28 mmol/L (21-32) Anion Gap 6 (6-14) Blood Urea Nitrogen 7 mg/dL (8-26) Creatinine 0.6 mg/dL (0.7-1.3) Estimated GFR (Cockcroft-Gault) 137.9 BUN/Creatinine Ratio 12 (6-20) Glucose Level 108 mg/dL (70-99) Calcium Level 7.4 mg/dL (8.5-10.1) Magnesium Level 1.9 mg/dL (1.8-2.4) Total Bilirubin 0.4 mg/dL (0.2-1.0) Aspartate Amino Transf (AST/SGOT) 44 U/L (15-37) Alanine Aminotransferase (ALT/SGPT) 22 U/L (16-63) Alkaline Phosphatase 130 U/L (46-116) Total Protein 4.8 g/dL (6.4-8.2) Albumin 1.2 g/dL (3.4-5.0) Albumin/Globulin Ratio 0.3 (1.0-1.7) Laboratory Tests Test 08/06/19 13:00 08/07/19 05:15 Sodium Level 144 mmol/L (136-145) 142 mmol/L (136-145) Potassium Level 3.7 mmol/L (3.5-5.1) 3.1 mmol/L (3.5-5.1) Chloride Level 109 mmol/L (98-107) 108 mmol/L (98-107) Carbon Dioxide Level 26 mmol/L (21-32) 28 mmol/L (21-32) Anion Gap 9 (6-14) 6 (6-14) Blood Urea Nitrogen 6 mg/dL (8-26) 7 mg/dL (8-26) Creatinine 0.6 mg/dL (0.7-1.3) 0.6 mg/dL (0.7-1.3) Estimated GFR (Cockcroft-Gault) 137.9 137.9 Glucose Level 84 mg/dL (70-99) 108 mg/dL (70-99) Calcium Level 7.0 mg/dL (8.5-10.1) 7.4 mg/dL (8.5-10.1) Magnesium Level 2.1 mg/dL (1.8-2.4) 1.9 mg/dL (1.8-2.4) White Blood Count 7.1 x10^3/uL (4.0-11.0) Red Blood Count 2.89 x10^6/uL (4.30-5.70) Hemoglobin 8.5 g/dL (13.0-17.5) Hematocrit 25.7 % (39.0-53.0) Mean Corpuscular Volume 89 fL (79-100) Mean Corpuscular Hemoglobin 29 pg (25-35) Mean Corpuscular Hemoglobin Concent 33 g/dL (31-37) Red Cell Distribution Width 15.0 % (11.5-14.5) Platelet Count 110 x10^3/uL (140-400) Neutrophils (%) (Auto) 84 % (31-73) Lymphocytes (%) (Auto) 11 % (24-48) Monocytes (%) (Auto) 5 % (0-9) Eosinophils (%) (Auto) 0 % (0-3) Basophils (%) (Auto) 0 % (0-3) Neutrophils # (Auto) 6.0 x10^3/uL (1.8-7.7) Lymphocytes # (Auto) 0.8 x10^3/uL (1.0-4.8) Monocytes # (Auto) 0.3 x10^3/uL (0.0-1.1) Eosinophils # (Auto) 0.0 x10^3/uL (0.0-0.7) Basophils # (Auto) 0.0 x10^3/uL (0.0-0.2) BUN/Creatinine Ratio 12 (6-20) Total Bilirubin 0.4 mg/dL (0.2-1.0) Aspartate Amino Transf (AST/SGOT) 44 U/L (15-37) Alanine Aminotransferase (ALT/SGPT) 22 U/L (16-63) Alkaline Phosphatase 130 U/L (46-116) Total Protein 4.8 g/dL (6.4-8.2) Albumin 1.2 g/dL (3.4-5.0) Albumin/Globulin Ratio 0.3 (1.0-1.7) Medications Active Scripts Medications Dose Route/Sig Max Daily Dose Days Date Category Losartan Potassium (Losartan Potassium) 25 Mg Tablet 100 Mg PO DAILY 90 08/04/19 Reported Gabapentin (Gabapentin) 300 Mg Capsule 300 Mg PO BID 08/04/19 Reported Furosemide 40 Mg Tablet 40 Mg PO DAILY 08/04/19 Reported Escitalopram Oxalate 10 Mg Tablet 10 Mg PO DAILY 08/04/19 Reported Amlodipine Besylate 5 Mg Tablet 5 Mg PO DAILY 08/04/19 Reported Acetaminophen 500 Mg Tablet 325 Mg PO PRN 08/04/19 Reported Oxycodone Hcl 5 Mg Capsule 5 Mg PO PRN Q4HRS PRN 08/04/19 Reported Flomax (Tamsulosin Hcl) 0.4 Mg Cap.er.24h 0.4 Mg PO DAILY 08/04/19 Reported Pantoprazole Sodium (Pantoprazole Sodium) 40 Mg Tablet.dr 40 Mg PO DAILYAC 08/04/19 Reported Modafinil 200 Mg Tablet 200 Mg PO DAILY 08/04/19 Reported Levetiracetam 500 Mg Tablet 500 Mg PO BID 08/04/19 Reported FENTANYL 25mcg/hr (Fentanyl) 1 Each Patch.td72 1 Patch TD Q72H 08/04/19 Reported Senna Lax (Sennosides) 8.6 Mg Tablet 8.6 Mg PO PRN 08/04/19 Reported Atorvastatin Calcium 10 Mg Tablet 10 Mg PO HS 08/04/19 Reported Polyethylene Glycol 3350 2,500 Gm Powder 17 Gm PO DAILY 08/04/19 Reported NITROGLYCERIN SubLingual (Nitroglycerin) 0.4 Mg Tab.subl 0.4 Mg SL PRN Q5MIN PRN 08/04/19 Reported Metoprolol Succinate ( Xl ) (Metoprolol Succinate) 25 Mg Tab.er.24h 50 Mg PO DAILY 08/04/19 Reported Loperamide (Loperamide Hcl) 2 Mg Tablet 2 Mg PO PRN 08/04/19 Reported Hydrochlorothiazide Capsule (Hydrochlorothiazide) 12.5 Mg Capsule 12.5 Mg PO DAILY 08/04/19 Reported Impression . 1. Acute Respiratory Failure 2. Metastatic squamous cell lung cancer 3. Pulmonary emboli 4. Recent GI bleed with anemia 5. Pathological femur fracture, s/p repair 6. HYPOTENSION SUSPECT LOW VOLUME 7. SEVERE PROTEIN MALNUTRITION POA Plan . D/W AND FAMILY BETTER TODAY ONCE OFF PRESSORS WILL TRANSFER BACK TO [facility] WILL CONTINUE SUPPORT NOW ON PRESSORS FOR HYPTOTENSION NO ANTICOUGULATION ORAL DIET FOLLOW CARDIOLOGY INPUT EFREN COTTRELL MD Aug 07, 2019 08:56
[2019-08-07] MEDS: MAGNESIUM SULFATE 4GM 100 ML IV SCH (09:32)
[2019-08-07] MEDS: FAMOTIDINE 20 MG/2 ML VIAL IVP SCH ×2 (09:50→21:43)
[2019-08-07] MEDS: SENNOSIDES 8.6 MG TABLET PO SCH (10:00)
[2019-08-07] MEDS ORDERED: ACETAMINOPHEN 325 MG TABLET. PO PRN (10:00)
[2019-08-07] MEDS: POLYETHYLENE GLYCOL 3350 17 GM PACKET. PO SCH (10:00)
--- NOTE | 2019-08-07 10:01 | PDOC ---
IM PROGRESS NOTES- Subjective Subjective No Complaints of pain or dyspnea.Has been coughing.Still on Levophed. Eating but not hungry. Objective Vitals/I&O Vital Signs Date Time Temp Pulse Resp B/P (MAP) Pulse Ox O2 Delivery O2 Flow Rate FiO2 08/07/19 09:00 131 22 96/58 (71) 98 Nasal Cannula 2.0 08/07/19 08:00 98.8 98.8 I & O 08/06/19 08/06/19 08/07/19 15:00 23:00 07:00 Intake Total 200 ml 1100 ml 240.9 ml Output Total 1640 ml 2900 ml 1145 ml Balance -1440 ml -1800 ml -904.1 ml Physical Exam Physical Exam General appearance - alert,ill appearing, and in no distress and oriented to person, place, and time Mental Status - alert, oriented to person, place, and time, affect appropriate to mood Head - normal Chest -decreased breath sounds at bases Heart - S1 and S2 normal Abdomen - soft, non tender, Neurological - alert and oriented Musculoskeletal - no muscular tenderness noted Extremities - 3+edema of the lower extremities right greater than left Skin - warm and dry Labs Laboratory Tests Test 08/06/19 13:00 08/07/19 05:15 Sodium Level 144 mmol/L (136-145) 142 mmol/L (136-145) Potassium Level 3.7 mmol/L (3.5-5.1) 3.1 mmol/L (3.5-5.1) L Chloride Level 109 mmol/L (98-107) H 108 mmol/L (98-107) H Carbon Dioxide Level 26 mmol/L (21-32) 28 mmol/L (21-32) Anion Gap 9 (6-14) 6 (6-14) Blood Urea Nitrogen 6 mg/dL (8-26) L 7 mg/dL (8-26) L Creatinine 0.6 mg/dL (0.7-1.3) L 0.6 mg/dL (0.7-1.3) L Estimated GFR (Cockcroft-Gault) 137.9 137.9 Glucose Level 84 mg/dL (70-99) 108 mg/dL (70-99) H Calcium Level 7.0 mg/dL (8.5-10.1) L 7.4 mg/dL (8.5-10.1) L Magnesium Level 2.1 mg/dL (1.8-2.4) 1.9 mg/dL (1.8-2.4) White Blood Count 7.1 x10^3/uL (4.0-11.0) Red Blood Count 2.89 x10^6/uL (4.30-5.70) L Hemoglobin 8.5 g/dL (13.0-17.5) L Hematocrit 25.7 % (39.0-53.0) L Mean Corpuscular Volume 89 fL (79-100) Mean Corpuscular Hemoglobin 29 pg (25-35) Mean Corpuscular Hemoglobin Concent 33 g/dL (31-37) Red Cell Distribution Width 15.0 % (11.5-14.5) H Platelet Count 110 x10^3/uL (140-400) L Neutrophils (%) (Auto) 84 % (31-73) H Lymphocytes (%) (Auto) 11 % (24-48) L Monocytes (%) (Auto) 5 % (0-9) Eosinophils (%) (Auto) 0 % (0-3) Basophils (%) (Auto) 0 % (0-3) Neutrophils # (Auto) 6.0 x10^3/uL (1.8-7.7) Lymphocytes # (Auto) 0.8 x10^3/uL (1.0-4.8) L Monocytes # (Auto) 0.3 x10^3/uL (0.0-1.1) Eosinophils # (Auto) 0.0 x10^3/uL (0.0-0.7) Basophils # (Auto) 0.0 x10^3/uL (0.0-0.2) BUN/Creatinine Ratio 12 (6-20) Total Bilirubin 0.4 mg/dL (0.2-1.0) Aspartate Amino Transferase (AST) 44 U/L (15-37) H Alanine Aminotransferase (ALT) 22 U/L (16-63) Alkaline Phosphatase 130 U/L (46-116) H Total Protein 4.8 g/dL (6.4-8.2) L Albumin 1.2 g/dL (3.4-5.0) L Albumin/Globulin Ratio 0.3 (1.0-1.7) L Laboratory Tests 08/07/19 05:15 Laboratory Tests 08/06/19 13:00 08/07/19 05:15 Meds Current Medications Medications (Trade) Dose Ordered Sig/Ryan Route PRN Reason Start Time Stop Time Status Last Admin Dose Admin Albumin Human 50 ml @ 50 mls/hr 1X ONCE IV 08/06/19 13:45 08/06/19 14:44 DC 08/06/19 14:29 Furosemide (Lasix) 40 mg 1X ONCE IVP 08/06/19 19:00 08/06/19 19:01 DC 08/06/19 19:44 Assessment Assessment Problems Medical Problems: (1) Anemia Status: Acute (2) Hypertension Status: Acute (3) Metastatic lung cancer (metastasis from lung to other site) Status: Acute (4) Sepsis Status: Acute FINAL IMPRESSION: 1. Pathological fracture of the left femur. 2. Lung cancer with metastasis, squamous cell.stage 4. 3. Deep venous thrombosis, right leg. 4. Anemia requiring transfusion. 5. Hypotension. 6. History of lung cancer with metastasis to the brain and to the lumbar spine, had a chemo as well as radiation treatment. 5. Supra ventricular tachycardia, heart rate around 140, probably multiple factors, slight bump in troponin 0.1. 6 .Brain and spine mets s/p radiation 7.Pulmonary Embolism 8. Hypokalemia 9. Anasarca PLAN: POD #1 S/P femur surgery, nailing. dvt leg s/p IVC filter. PE not a cadidate for anticoagulation due to gi bleed. hypotension on Levophed. extubated this morning iv fluids . recent chemo.Ketruda 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, left femur, initial encounter for fracture Post-Op Diagnosis: same Procedure: * CPT 13995 left hip treatment of intertrochanteric femoral fracture with intramedullary implant, with interlocking screws Surgeon: Imtiaz Eduardo MD Adult Basic Education Teacher: DIANE Crum Anesthesia Type: General EBL: 700 mL Fluids: 2u PRBCs, 2200 crystalloid Specimens Obtained: none Complications: none Right lower extremity DVT- 7 had an IVC filter placed. Patient is not a candidate for anticoagulation due to recent duodenal ulcer with bleeding. Pulmonary embolism. Also had some pulmonary infarcts that are subpleural. Not a candidate for anticoagulation. Lung cancer with extensive metastasis. Patient was treated with Keytruda previously. Hypotension on Italo-Synephrine. Hypokalemia- replace potassium,placed on K protocol.K 3.1 Hypernatremia Supra ventricular tachycardia. 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 Edema- legs weeping with blisters. Received IV Lasix and IV albumin yesterday. Echocardiogram The left ventricular systolic function is normal and the ejection fraction is within normal range. The Ejection Fraction is 50-55%. There is normal LV segmental wall motion. The right ventricle is mildly dilated. Doppler and Color Flow revealed trace tricuspid regurgitation with an estimated PAP of 42 mmHg. There is a trace pericardial effusion. Anasarca- may need Lasix but has hypotension and hypokalemia.If better,give IV Albumin with one dose of Lasix later today. Anemia- monitor Dysphagia- advance to regular diet. Prognosis is very poor. Recheck labs in a.m. Discussed with Dr. Smith. Continue present treatment here in the ICU. Hold discharge to select. Thrombocytopenia- monitor. In addition, treatment, different medical issues, very poor prognosis extensively discussed with the patient's daughter and his . Plan Plan For more details regarding further plans, please refer to the orders. Nutrition Consultation Dietary Evaluation: Recommendations by RD: Increase Calorie Intake, Protein supplementation Comments: REC regular diet, honor food preferences, and provide snacks as requested REC Ensure (chocolate) w/lunch trays Expected Outcomes/Goals: PO intake to meet >75% est needs Interpretation of weight loss: >7.5% in 3 months Malnutrition Findings: Food and Nutrition Intake (Sev: <50% est energy req 5days Weight Status: Obese ISIAH GREGORY MD Aug 07, 2019 10:01
--- NOTE | 2019-08-07 10:58 | PDOC ---
IAN ANDREA [employer]SEM[employer]ER 08/07/19 1058: CARDIO Progress Notes Date and Time Date of Service 08/07/19 Time of Evaluation 1050 Subjective Subjective: No Chest Pain, No shortness of breath, No Palpitations Vitals Vitals Vital Signs Date Time Temp Pulse Resp B/P (MAP) Pulse Ox O2 Delivery O2 Flow Rate FiO2 08/07/19 10:00 131 24 103/60 (74) 98 Nasal Cannula 2.0 08/07/19 08:00 98.8 98.8 Weight Weight [ ] Input and Output Intake and Output Intake and Output 08/07/19 07:00 Intake Total 1540.9 ml Output Total 5685 ml Balance -4144.1 ml Intake Oral 800 ml IV Total 740.9 ml Output Urine Total 5685 ml Laboratory Labs Laboratory Tests Test 08/06/19 13:00 08/07/19 05:15 Sodium Level 144 mmol/L (136-145) 142 mmol/L (136-145) Potassium Level 3.7 mmol/L (3.5-5.1) 3.1 mmol/L (3.5-5.1) Chloride Level 109 mmol/L (98-107) 108 mmol/L (98-107) Carbon Dioxide Level 26 mmol/L (21-32) 28 mmol/L (21-32) Anion Gap 9 (6-14) 6 (6-14) Blood Urea Nitrogen 6 mg/dL (8-26) 7 mg/dL (8-26) Creatinine 0.6 mg/dL (0.7-1.3) 0.6 mg/dL (0.7-1.3) Estimated GFR (Cockcroft-Gault) 137.9 137.9 Glucose Level 84 mg/dL (70-99) 108 mg/dL (70-99) Calcium Level 7.0 mg/dL (8.5-10.1) 7.4 mg/dL (8.5-10.1) Magnesium Level 2.1 mg/dL (1.8-2.4) 1.9 mg/dL (1.8-2.4) White Blood Count 7.1 x10^3/uL (4.0-11.0) Red Blood Count 2.89 x10^6/uL (4.30-5.70) Hemoglobin 8.5 g/dL (13.0-17.5) Hematocrit 25.7 % (39.0-53.0) Mean Corpuscular Volume 89 fL (79-100) Mean Corpuscular Hemoglobin 29 pg (25-35) Mean Corpuscular Hemoglobin Concent 33 g/dL (31-37) Red Cell Distribution Width 15.0 % (11.5-14.5) Platelet Count 110 x10^3/uL (140-400) Neutrophils (%) (Auto) 84 % (31-73) Lymphocytes (%) (Auto) 11 % (24-48) Monocytes (%) (Auto) 5 % (0-9) Eosinophils (%) (Auto) 0 % (0-3) Basophils (%) (Auto) 0 % (0-3) Neutrophils # (Auto) 6.0 x10^3/uL (1.8-7.7) Lymphocytes # (Auto) 0.8 x10^3/uL (1.0-4.8) Monocytes # (Auto) 0.3 x10^3/uL (0.0-1.1) Eosinophils # (Auto) 0.0 x10^3/uL (0.0-0.7) Basophils # (Auto) 0.0 x10^3/uL (0.0-0.2) BUN/Creatinine Ratio 12 (6-20) Total Bilirubin 0.4 mg/dL (0.2-1.0) Aspartate Amino Transf (AST/SGOT) 44 U/L (15-37) Alanine Aminotransferase (ALT/SGPT) 22 U/L (16-63) Alkaline Phosphatase 130 U/L (46-116) Total Protein 4.8 g/dL (6.4-8.2) Albumin 1.2 g/dL (3.4-5.0) Albumin/Globulin Ratio 0.3 (1.0-1.7) Microbiology Micro Microbiology 08/02/19 Blood Culture - Preliminary, Resulted NO GROWTH AFTER 4 DAYS Physical Exam HEENT: Neck Supple W Full Motion Chest: Symmetric LUNGS: Other (diminished ) Heart: S1S2, other (ST rate 130) Abdomen: Soft N/T Extremities: Other (anasarca) Neurology: alert, oriented, follow commands Assessment Assessment 1. SVT - physiologic secondary to below 2. PE/DVT s/p IVC filter. high risk for anticoagulation 3. Anemia, recent GI bleed; s/p transfusion 4. Stage 4 lung CA with mets to brain and bone 5. Left femur fracture s/p repair 6. Hypotension; low dose pressor support. multifactorial. intravascular depletion with significant anasarca contributing 7. Anasarca, protein calorie malnutrition 8. Hypokalemia Recommendations Will need to determine overall prognosis from oncology standpoint Palliative care to address goal of care Oral hydration Low-dose pressor support Supportive care STEPHANIE MORROW MD 08/07/19 1820: CARDIO Progress Notes Plan Plan Patient seen and examined. Agree with above nurse practitioner note. I had a long discussion with the patient and his and mother. Recommend he strongly consider palliative care/hospice. Await input from the oncology service regarding his prognosis. Supportive care from a cardiac standpoint. Please call with any further questions. IAN ANDREA APRN Aug 07, 2019 10:58 STEPHANIE MORROW MD Aug 07, 2019 18:20
[2019-08-07] MEDS: POTASSIUM CHL 20MEQ PREMIX 50 ML IV SCH ×2 (11:00→11:06)
[2019-08-07] MEDS: oxyCODONE IR 5 MG TABLET PO PRN ×3 (11:04→20:07)
--- NOTE | 2019-08-07 11:26 | PDOC ---
ORTHO PROGRESS NOTES Subjective Patient states feeling somewhat better. Post-op Day: 4 Procedure ORIF Left Femur Vitals Vital Signs Date Time Temp Pulse Resp B/P (MAP) Pulse Ox O2 Delivery O2 Flow Rate FiO2 08/07/19 11:04 98 Nasal Cannula 2.0 08/07/19 10:00 131 24 103/60 (74) 08/07/19 08:00 98.8 98.8 Labs Laboratory Tests Test 08/05/19 16:40 08/06/19 06:00 08/06/19 13:00 08/07/19 05:15 Sodium Level 147 mmol/L (136-145) 147 mmol/L (136-145) 144 mmol/L (136-145) 142 mmol/L (136-145) Potassium Level 3.5 mmol/L (3.5-5.1) 3.2 mmol/L (3.5-5.1) 3.7 mmol/L (3.5-5.1) 3.1 mmol/L (3.5-5.1) Chloride Level 112 mmol/L (98-107) 113 mmol/L (98-107) 109 mmol/L (98-107) 108 mmol/L (98-107) Carbon Dioxide Level 25 mmol/L (21-32) 25 mmol/L (21-32) 26 mmol/L (21-32) 28 mmol/L (21-32) Anion Gap 10 (6-14) 9 (6-14) 9 (6-14) 6 (6-14) Blood Urea Nitrogen 6 mg/dL (8-26) 6 mg/dL (8-26) 6 mg/dL (8-26) 7 mg/dL (8- 26) Creatinine 0.6 mg/dL (0.7-1.3) 0.6 mg/dL (0.7-1.3) 0.6 mg/dL (0.7-1.3) 0.6 mg/dL (0.7-1.3) Estimated GFR (Cockcroft-Gault) 137.9 137.9 137.9 137.9 Glucose Level 121 mg/dL (70-99) 90 mg/dL (70-99) 84 mg/dL (70-99) 108 mg/dL (70-99) Calcium Level 6.9 mg/dL (8.5-10.1) 7.3 mg/dL (8.5-10.1) 7.0 mg/dL (8.5-10.1) 7.4 mg/dL (8.5-10.1) Magnesium Level 2.3 mg/dL (1.8-2.4) 2.0 mg/dL (1.8-2.4) 2.1 mg/dL (1.8-2.4) 1.9 mg/dL (1.8-2.4) White Blood Count 8.3 x10^3/uL (4.0-11.0) 7.1 x10^3/uL (4.0-11.0) Red Blood Count 2.97 x10^6/uL (4.30-5.70) 2.89 x10^6/uL (4.30-5.70) Hemoglobin 8.8 g/dL (13.0-17.5) 8.5 g/dL (13.0-17.5) Hematocrit 26.4 % (39.0-53.0) 25.7 % (39.0-53.0) Mean Corpuscular Volume 89 fL (79-100) 89 fL (79-100) Mean Corpuscular Hemoglobin 30 pg (25-35) 29 pg (25-35) Mean Corpuscular Hemoglobin Concent 33 g/dL (31-37) 33 g/dL (31-37) Red Cell Distribution Width 15.0 % (11.5-14.5) 15.0 % (11.5-14.5) Platelet Count 109 x10^3/uL (140-400) 110 x10^3/uL (140-400) Neutrophils (%) (Auto) 87 % (31-73) 84 % (31-73) Lymphocytes (%) (Auto) 8 % (24-48) 11 % (24-48) Monocytes (%) (Auto) 4 % (0-9) 5 % (0-9) Eosinophils (%) (Auto) 0 % (0-3) 0 % (0-3) Basophils (%) (Auto) 1 % (0-3) 0 % (0-3) Neutrophils # (Auto) 7.2 x10^3/uL (1.8-7.7) 6.0 x10^3/uL (1.8-7.7) Lymphocytes # (Auto) 0.7 x10^3/uL (1.0-4.8) 0.8 x10^3/uL (1.0-4.8) Monocytes # (Auto) 0.3 x10^3/uL (0.0-1.1) 0.3 x10^3/uL (0.0-1.1) Eosinophils # (Auto) 0.0 x10^3/uL (0.0-0.7) 0.0 x10^3/uL (0.0-0.7) Basophils # (Auto) 0.1 x10^3/uL (0.0-0.2) 0.0 x10^3/uL (0.0-0.2) BUN/Creatinine Ratio 10 (6-20) 12 (6-20) Total Bilirubin 0.4 mg/dL (0.2-1.0) 0.4 mg/dL (0.2-1.0) Aspartate Amino Transf (AST/SGOT) 42 U/L (15-37) 44 U/L (15-37) Alanine Aminotransferase (ALT/SGPT) 17 U/L (16-63) 22 U/L (16-63) Alkaline Phosphatase 124 U/L (46-116) 130 U/L (46-116) Total Protein 4.7 g/dL (6.4-8.2) 4.8 g/dL (6.4-8.2) Albumin 1.0 g/dL (3.4-5.0) 1.2 g/dL (3.4-5.0) Albumin/Globulin Ratio 0.3 (1.0-1.7) 0.3 (1.0-1.7) Laboratory Tests Test 08/06/19 13:00 08/07/19 05:15 Sodium Level 144 mmol/L (136-145) 142 mmol/L (136-145) Potassium Level 3.7 mmol/L (3.5-5.1) 3.1 mmol/L (3.5-5.1) Chloride Level 109 mmol/L (98-107) 108 mmol/L (98-107) Carbon Dioxide Level 26 mmol/L (21-32) 28 mmol/L (21-32) Anion Gap 9 (6-14) 6 (6-14) Blood Urea Nitrogen 6 mg/dL (8-26) 7 mg/dL (8-26) Creatinine 0.6 mg/dL (0.7-1.3) 0.6 mg/dL (0.7-1.3) Estimated GFR (Cockcroft-Gault) 137.9 137.9 Glucose Level 84 mg/dL (70-99) 108 mg/dL (70-99) Calcium Level 7.0 mg/dL (8.5-10.1) 7.4 mg/dL (8.5-10.1) Magnesium Level 2.1 mg/dL (1.8-2.4) 1.9 mg/dL (1.8-2.4) White Blood Count 7.1 x10^3/uL (4.0-11.0) Red Blood Count 2.89 x10^6/uL (4.30-5.70) Hemoglobin 8.5 g/dL (13.0-17.5) Hematocrit 25.7 % (39.0-53.0) Mean Corpuscular Volume 89 fL (79-100) Mean Corpuscular Hemoglobin 29 pg (25-35) Mean Corpuscular Hemoglobin Concent 33 g/dL (31-37) Red Cell Distribution Width 15.0 % (11.5-14.5) Platelet Count 110 x10^3/uL (140-400) Neutrophils (%) (Auto) 84 % (31-73) Lymphocytes (%) (Auto) 11 % (24-48) Monocytes (%) (Auto) 5 % (0-9) Eosinophils (%) (Auto) 0 % (0-3) Basophils (%) (Auto) 0 % (0-3) Neutrophils # (Auto) 6.0 x10^3/uL (1.8-7.7) Lymphocytes # (Auto) 0.8 x10^3/uL (1.0-4.8) Monocytes # (Auto) 0.3 x10^3/uL (0.0-1.1) Eosinophils # (Auto) 0.0 x10^3/uL (0.0-0.7) Basophils # (Auto) 0.0 x10^3/uL (0.0-0.2) BUN/Creatinine Ratio 12 (6-20) Total Bilirubin 0.4 mg/dL (0.2-1.0) Aspartate Amino Transf (AST/SGOT) 44 U/L (15-37) Alanine Aminotransferase (ALT/SGPT) 22 U/L (16-63) Alkaline Phosphatase 130 U/L (46-116) Total Protein 4.8 g/dL (6.4-8.2) Albumin 1.2 g/dL (3.4-5.0) Albumin/Globulin Ratio 0.3 (1.0-1.7) Notes awake and alert and has been eating better. Assessment and Plan POD # 4 S/P ORIF Left femur motor and sensation intact swelling decreasing dressing dry and intact PT HOWARD RIBEIRO APRN Aug 07, 2019 11:26
--- NOTE | 2019-08-07 11:37 | NUR ---
SS following up with discharge planning. SS phoned and faxed clinical updates to [facility], ; fax [phone]. SS will continue to follow for discharge planning.
[2019-08-07] MEDS: fentaNYL PF VIAL 100 MCG/2 ML VIAL IVP PRN ×2 (12:16→19:48)
--- NOTE | 2019-08-07 15:18 | PDOC2 ---
PALLIATIVE CARE Palliative Care Note Palliative Care Consult requested by Dr. Daigle to address goals /plan of care Medical Assessment per medical record; 1. SVT - physiologic secondary to below 2. PE/DVT s/p IVC filter. high risk for anticoagulation 3. Anemia, recent GI bleed; s/p transfusion 4. Stage 4 lung CA with mets to brain and bone 5. Left femur fracture s/p repair 6. Hypotension; low dose pressor support. multifactorial. intravascular depletion with significant anasarca contributing 7. Anasarca, protein calorie malnutrition 8. Hypokalemia Patient awakes easily. Spoke with Gissell and Emilee Mother at bedside. Plan: Meeting tomorrow at 1030 Code Status: DNR/DNI. LEBRON VERAS Aug 07, 2019 15:18
[2019-08-07 18:27] LABS: CALCIUM 7.2 mg/dL (8.5-10.1); CREATININE 0.6 mg/dL (0.7-1.3); GFR 137.9; POTASSIUM 3.8 mmol/L (3.5-5.1)
[2019-08-08] VITALS (24 sets, daily range): BP systolic 73–120; BP diastolic 50–82
[2019-08-08 06:15] LABS: BASO % 0 % (0-3); EOS % 0 % (0-3); HEMATOCRIT 26.9 % (39.0-53.0); HEMOGLOBIN 8.8 g/dL (13.0-17.5); LYMPH # 0.8 x10^3/uL (1.0-4.8); LYMPH % 12 % (24-48); MEAN CORPUSCULAR HEMOGLOBIN 29 pg (25-35); MEAN CORPUSCULAR HGB CONC 33 g/dL (31-37); MEAN CORPUSCULAR VOLUME 89 fL (79-100); MONO # 0.4 x10^3/uL (0.0-1.1); MONO % 5 % (0-9); NEUT # 5.7 x10^3/uL (1.8-7.7); NEUT % 83 % (31-73); PLATELET COUNT 123 x10^3/uL (140-400); RED BLOOD COUNT 3.02 x10^6/uL (4.30-5.70); RED CELL DISTRIBUTION WIDTH 15.3 % (11.5-14.5); WHITE BLOOD COUNT 6.9 x10^3/uL (4.0-11.0)
[2019-08-08 06:28] LABS: ALBUMIN 1.2 g/dL (3.4-5.0); ALBUMIN/GLOBULIN RATIO 0.3 (1.0-1.7); CALCIUM 7.5 mg/dL (8.5-10.1); CREATININE 0.6 mg/dL (0.7-1.3); GFR 137.9; MAGNESIUM 1.9 mg/dL (1.8-2.4); POTASSIUM 3.3 mmol/L (3.5-5.1); TOTAL BILIRUBIN 0.5 mg/dL (0.2-1.0)
--- NOTE | 2019-08-08 08:09 | NUR ---
SS following up with discharge planning. SS discussed with pt's RN. Pt is off pressors now. SS was informed that pt has now lost criteria for LTAC per insurance. Case management verified with insurance. Pt has no [place] [facility] benefits with insurance as well. SS was notified that pt does have insurance benefits for acute rehabilitation or home with home healthcare. Pt's RN and palliative care RN notified. Palliative Care meeting at 1030 today. SS will continue to follow for discharge planning.
[2019-08-08] MEDS: SENNOSIDES 8.6 MG TABLET PO SCH (08:19)
[2019-08-08] MEDS: POTASSIUM CHL 20MEQ PREMIX 50 ML IV SCH ×2 (08:19→10:01)
[2019-08-08] MEDS: oxyCODONE IR 5 MG TABLET PO PRN ×4 (08:19→21:29)
[2019-08-08] MEDS: FAMOTIDINE 20 MG/2 ML VIAL IVP SCH ×2 (08:20→21:28)
[2019-08-08] MEDS: POLYETHYLENE GLYCOL 3350 17 GM PACKET. PO SCH (09:00)
--- NOTE | 2019-08-08 09:51 | PDOC ---
PULMONARY PROGRESS NOTES Subjective OFF PRESSORS WEAK NOT MORE SOA Vitals Vital Signs Date Time Temp Pulse Resp B/P (MAP) Pulse Ox O2 Delivery O2 Flow Rate FiO2 08/08/19 08:00 Nasal Cannula 2.0 08/08/19 07:00 130 23 120/82 (95) 95 08/08/19 04:00 98.8 98.8 ROS: No Nausea, No Chest Pain, No Abdominal Pain General: Alert Lungs: Clear Cardiovascular: S1, S2 Abdomen: Soft, Non-tender Neuro Exam: Alert Extremities: Other (EDEMA) Skin: Warm Labs Laboratory Tests Test 08/06/19 13:00 08/07/19 05:15 08/07/19 17:40 08/08/19 05:30 Sodium Level 144 mmol/L (136-145) 142 mmol/L (136-145) 142 mmol/L (136-145) 140 mmol/L (136-145) Potassium Level 3.7 mmol/L (3.5-5.1) 3.1 mmol/L (3.5-5.1) 3.8 mmol/L (3.5-5.1) 3.3 mmol/L (3.5-5.1) Chloride Level 109 mmol/L (98-107) 108 mmol/L (98-107) 106 mmol/L (98-107) 104 mmol/L (98-107) Carbon Dioxide Level 26 mmol/L (21-32) 28 mmol/L (21-32) 27 mmol/L (21-32) 27 mmol/L (21-32) Anion Gap 9 (6-14) 6 (6-14) 9 (6-14) 9 (6-14) Blood Urea Nitrogen 6 mg/dL (8-26) 7 mg/dL (8-26) 7 mg/dL (8-26) 7 mg/dL (8- 26) Creatinine 0.6 mg/dL (0.7-1.3) 0.6 mg/dL (0.7-1.3) 0.6 mg/dL (0.7-1.3) 0.6 mg/dL (0.7-1.3) Estimated GFR (Cockcroft-Gault) 137.9 137.9 137.9 137.9 Glucose Level 84 mg/dL (70-99) 108 mg/dL (70-99) 103 mg/dL (70-99) 137 mg/dL (70-99) Calcium Level 7.0 mg/dL (8.5-10.1) 7.4 mg/dL (8.5-10.1) 7.2 mg/dL (8.5-10.1) 7.5 mg/dL (8.5-10.1) Magnesium Level 2.1 mg/dL (1.8-2.4) 1.9 mg/dL (1.8-2.4) 2.0 mg/dL (1.8-2.4) 1.9 mg/dL (1.8-2.4) White Blood Count 7.1 x10^3/uL (4.0-11.0) 6.9 x10^3/uL (4.0-11.0) Red Blood Count 2.89 x10^6/uL (4.30-5.70) 3.02 x10^6/uL (4.30-5.70) Hemoglobin 8.5 g/dL (13.0-17.5) 8.8 g/dL (13.0-17.5) Hematocrit 25.7 % (39.0-53.0) 26.9 % (39.0-53.0) Mean Corpuscular Volume 89 fL (79-100) 89 fL (79-100) Mean Corpuscular Hemoglobin 29 pg (25-35) 29 pg (25-35) Mean Corpuscular Hemoglobin Concent 33 g/dL (31-37) 33 g/dL (31-37) Red Cell Distribution Width 15.0 % (11.5-14.5) 15.3 % (11.5-14.5) Platelet Count 110 x10^3/uL (140-400) 123 x10^3/uL (140-400) Neutrophils (%) (Auto) 84 % (31-73) 83 % (31-73) Lymphocytes (%) (Auto) 11 % (24-48) 12 % (24-48) Monocytes (%) (Auto) 5 % (0-9) 5 % (0-9) Eosinophils (%) (Auto) 0 % (0-3) 0 % (0-3) Basophils (%) (Auto) 0 % (0-3) 0 % (0-3) Neutrophils # (Auto) 6.0 x10^3/uL (1.8-7.7) 5.7 x10^3/uL (1.8-7.7) Lymphocytes # (Auto) 0.8 x10^3/uL (1.0-4.8) 0.8 x10^3/uL (1.0-4.8) Monocytes # (Auto) 0.3 x10^3/uL (0.0-1.1) 0.4 x10^3/uL (0.0-1.1) Eosinophils # (Auto) 0.0 x10^3/uL (0.0-0.7) 0.0 x10^3/uL (0.0-0.7) Basophils # (Auto) 0.0 x10^3/uL (0.0-0.2) 0.0 x10^3/uL (0.0-0.2) BUN/Creatinine Ratio 12 (6-20) 12 (6-20) Total Bilirubin 0.4 mg/dL (0.2-1.0) 0.5 mg/dL (0.2-1.0) Aspartate Amino Transf (AST/SGOT) 44 U/L (15-37) 52 U/L (15-37) Alanine Aminotransferase (ALT/SGPT) 22 U/L (16-63) 26 U/L (16-63) Alkaline Phosphatase 130 U/L (46-116) 139 U/L (46-116) Total Protein 4.8 g/dL (6.4-8.2) 5.0 g/dL (6.4-8.2) Albumin 1.2 g/dL (3.4-5.0) 1.2 g/dL (3.4-5.0) Albumin/Globulin Ratio 0.3 (1.0-1.7) 0.3 (1.0-1.7) Laboratory Tests Test 08/07/19 17:40 08/08/19 05:30 Sodium Level 142 mmol/L (136-145) 140 mmol/L (136-145) Potassium Level 3.8 mmol/L (3.5-5.1) 3.3 mmol/L (3.5-5.1) Chloride Level 106 mmol/L (98-107) 104 mmol/L (98-107) Carbon Dioxide Level 27 mmol/L (21-32) 27 mmol/L (21-32) Anion Gap 9 (6-14) 9 (6-14) Blood Urea Nitrogen 7 mg/dL (8-26) 7 mg/dL (8-26) Creatinine 0.6 mg/dL (0.7-1.3) 0.6 mg/dL (0.7-1.3) Estimated GFR (Cockcroft-Gault) 137.9 137.9 Glucose Level 103 mg/dL (70-99) 137 mg/dL (70-99) Calcium Level 7.2 mg/dL (8.5-10.1) 7.5 mg/dL (8.5-10.1) Magnesium Level 2.0 mg/dL (1.8-2.4) 1.9 mg/dL (1.8-2.4) White Blood Count 6.9 x10^3/uL (4.0-11.0) Red Blood Count 3.02 x10^6/uL (4.30-5.70) Hemoglobin 8.8 g/dL (13.0-17.5) Hematocrit 26.9 % (39.0-53.0) Mean Corpuscular Volume 89 fL (79-100) Mean Corpuscular Hemoglobin 29 pg (25-35) Mean Corpuscular Hemoglobin Concent 33 g/dL (31-37) Red Cell Distribution Width 15.3 % (11.5-14.5) Platelet Count 123 x10^3/uL (140-400) Neutrophils (%) (Auto) 83 % (31-73) Lymphocytes (%) (Auto) 12 % (24-48) Monocytes (%) (Auto) 5 % (0-9) Eosinophils (%) (Auto) 0 % (0-3) Basophils (%) (Auto) 0 % (0-3) Neutrophils # (Auto) 5.7 x10^3/uL (1.8-7.7) Lymphocytes # (Auto) 0.8 x10^3/uL (1.0-4.8) Monocytes # (Auto) 0.4 x10^3/uL (0.0-1.1) Eosinophils # (Auto) 0.0 x10^3/uL (0.0-0.7) Basophils # (Auto) 0.0 x10^3/uL (0.0-0.2) BUN/Creatinine Ratio 12 (6-20) Total Bilirubin 0.5 mg/dL (0.2-1.0) Aspartate Amino Transf (AST/SGOT) 52 U/L (15-37) Alanine Aminotransferase (ALT/SGPT) 26 U/L (16-63) Alkaline Phosphatase 139 U/L (46-116) Total Protein 5.0 g/dL (6.4-8.2) Albumin 1.2 g/dL (3.4-5.0) Albumin/Globulin Ratio 0.3 (1.0-1.7) Medications Active Scripts Medications Dose Route/Sig Max Daily Dose Days Date Category Losartan Potassium (Losartan Potassium) 25 Mg Tablet 100 Mg PO DAILY 90 08/04/19 Reported Gabapentin (Gabapentin) 300 Mg Capsule 300 Mg PO BID 08/04/19 Reported Furosemide 40 Mg Tablet 40 Mg PO DAILY 08/04/19 Reported Escitalopram Oxalate 10 Mg Tablet 10 Mg PO DAILY 08/04/19 Reported Amlodipine Besylate 5 Mg Tablet 5 Mg PO DAILY 08/04/19 Reported Acetaminophen 500 Mg Tablet 325 Mg PO PRN 08/04/19 Reported Oxycodone Hcl 5 Mg Capsule 5 Mg PO PRN Q4HRS PRN 08/04/19 Reported Flomax (Tamsulosin Hcl) 0.4 Mg Cap.er.24h 0.4 Mg PO DAILY 08/04/19 Reported Pantoprazole Sodium (Pantoprazole Sodium) 40 Mg Tablet.dr 40 Mg PO DAILYAC 08/04/19 Reported Modafinil 200 Mg Tablet 200 Mg PO DAILY 08/04/19 Reported Levetiracetam 500 Mg Tablet 500 Mg PO BID 08/04/19 Reported FENTANYL 25mcg/hr (Fentanyl) 1 Each Patch.td72 1 Patch TD Q72H 08/04/19 Reported Senna Lax (Sennosides) 8.6 Mg Tablet 8.6 Mg PO PRN 08/04/19 Reported Atorvastatin Calcium 10 Mg Tablet 10 Mg PO HS 08/04/19 Reported Polyethylene Glycol 3350 2,500 Gm Powder 17 Gm PO DAILY 08/04/19 Reported NITROGLYCERIN SubLingual (Nitroglycerin) 0.4 Mg Tab.subl 0.4 Mg SL PRN Q5MIN PRN 08/04/19 Reported Metoprolol Succinate ( Xl ) (Metoprolol Succinate) 25 Mg Tab.er.24h 50 Mg PO DAILY 08/04/19 Reported Loperamide (Loperamide Hcl) 2 Mg Tablet 2 Mg PO PRN 08/04/19 Reported Hydrochlorothiazide Capsule (Hydrochlorothiazide) 12.5 Mg Capsule 12.5 Mg PO DAILY 08/04/19 Reported Impression . 1. Acute Respiratory Failure 2. Metastatic squamous cell lung cancer 3. Pulmonary emboli 4. Recent GI bleed with anemia 5. Pathological femur fracture, s/p repair 6. HYPOTENSION SUSPECT LOW VOLUME 7. SEVERE PROTEIN MALNUTRITION POA Plan . PT INSURANCE PRECLUDES TRANSFER TO [facility] INSURANCE DOES NOT COVER SNU, PT NOT ABLE TO TOLERATED ACUTE REHAB CASE MAN AND SS TO WORK ON TRANSFER DISPOSITION SPOKE WITH RN UP TO CHAIR NO ANTICOUGULATION S/P IVC FILTER ORAL DIET FOLLOW CARDIOLOGY INPUT EFREN COTTRELL MD Aug 08, 2019 09:51
[2019-08-08] MEDS ORDERED: ALBUMIN HUMAN 25% 50 ML IV ONE (10:00)
[2019-08-08] MEDS ORDERED: FUROSEMIDE 40 MG/4 ML VIAL. IVP ONE (10:00)
[2019-08-08] MEDS: MAGNESIUM SULFATE 4GM 100 ML IV SCH (10:00)
--- NOTE | 2019-08-08 10:07 | PDOC ---
IM PROGRESS NOTES- Subjective Subjective No Complaints of pain or dyspnea.Has been coughing.Still on Levophed. Eating but not hungry. Objective Vitals/I&O Vital Signs Date Time Temp Pulse Resp B/P (MAP) Pulse Ox O2 Delivery O2 Flow Rate FiO2 08/08/19 08:00 Nasal Cannula 2.0 08/08/19 07:00 130 23 120/82 (95) 95 08/08/19 04:00 98.8 98.8 I & O 08/07/19 08/07/19 08/08/19 15:00 23:00 07:00 Intake Total 690 ml 420 ml 525 ml Output Total 975 ml 1400 ml 1400 ml Balance -285 ml -980 ml -875 ml Physical Exam Physical Exam General appearance - alert,ill appearing, and in no distress and oriented to per son, place, and time Mental Status - alert, oriented to person, place, and time, affect appropriate to mood Head - normal Chest -decreased breath sounds at bases Heart - S1 and S2 normal Abdomen - soft, non tender, Neurological - alert and oriented Musculoskeletal - no muscular tenderness noted Extremities - 3+edema of the lower extremities right greater than left Skin - warm and dry Labs Laboratory Tests Test 08/07/19 17:40 08/08/19 05:30 Sodium Level 142 mmol/L (136-145) 140 mmol/L (136-145) Potassium Level 3.8 mmol/L (3.5-5.1) 3.3 mmol/L (3.5-5.1) L Chloride Level 106 mmol/L (98-107) 104 mmol/L (98-107) Carbon Dioxide Level 27 mmol/L (21-32) 27 mmol/L (21-32) Anion Gap 9 (6-14) 9 (6-14) Blood Urea Nitrogen 7 mg/dL (8-26) L 7 mg/dL (8-26) L Creatinine 0.6 mg/dL (0.7-1.3) L 0.6 mg/dL (0.7-1.3) L Estimated GFR (Cockcroft-Gault) 137.9 137.9 Glucose Level 103 mg/dL (70-99) H 137 mg/dL (70-99) H Calcium Level 7.2 mg/dL (8.5-10.1) L 7.5 mg/dL (8.5-10.1) L Magnesium Level 2.0 mg/dL (1.8-2.4) 1.9 mg/dL (1.8-2.4) White Blood Count 6.9 x10^3/uL (4.0-11.0) Red Blood Count 3.02 x10^6/uL (4.30-5.70) L Hemoglobin 8.8 g/dL (13.0-17.5) L Hematocrit 26.9 % (39.0-53.0) L Mean Corpuscular Volume 89 fL (79-100) Mean Corpuscular Hemoglobin 29 pg (25-35) Mean Corpuscular Hemoglobin Concent 33 g/dL (31-37) Red Cell Distribution Width 15.3 % (11.5-14.5) H Platelet Count 123 x10^3/uL (140-400) L Neutrophils (%) (Auto) 83 % (31-73) H Lymphocytes (%) (Auto) 12 % (24-48) L Monocytes (%) (Auto) 5 % (0-9) Eosinophils (%) (Auto) 0 % (0-3) Basophils (%) (Auto) 0 % (0-3) Neutrophils # (Auto) 5.7 x10^3/uL (1.8-7.7) Lymphocytes # (Auto) 0.8 x10^3/uL (1.0-4.8) L Monocytes # (Auto) 0.4 x10^3/uL (0.0-1.1) Eosinophils # (Auto) 0.0 x10^3/uL (0.0-0.7) Basophils # (Auto) 0.0 x10^3/uL (0.0-0.2) BUN/Creatinine Ratio 12 (6-20) Total Bilirubin 0.5 mg/dL (0.2-1.0) Aspartate Amino Transferase (AST) 52 U/L (15-37) H Alanine Aminotransferase (ALT) 26 U/L (16-63) Alkaline Phosphatase 139 U/L (46-116) H Total Protein 5.0 g/dL (6.4-8.2) L Albumin 1.2 g/dL (3.4-5.0) L Albumin/Globulin Ratio 0.3 (1.0-1.7) L Laboratory Tests 11/7/19 05:30 Laboratory Tests 08/07/19 17:40 08/08/19 05:30 Meds Current Medications Medications (Trade) Dose Ordered Sig/Ryan Route PRN Reason Start Time Stop Time Status Last Admin Dose Admin Oxycodone HCl (Roxicodone) 5 mg PRN Q4HRS PRN PO MODERATE TO SEVERE PAIN 08/07/19 10:15 08/07/19 20:07 Potassium Chloride/Water 50 ml @ 50 mls/hr Q1H IV 08/08/19 08:00 08/08/19 09:59 DC 08/08/19 10:01 Albumin Human 50 ml @ 50 mls/hr 1X ONCE IV 08/08/19 10:00 08/08/19 10:59 08/08/19 10:01 Assessment Assessment Problems Medical Problems: (1) Anemia Status: Acute (2) Hypertension Status: Acute (3) Metastatic lung cancer (metastasis from lung to other site) Status: Acute (4) Sepsis Status: Acute FINAL IMPRESSION: 1. Pathological fracture of the left femur. 2. Lung cancer with metastasis, squamous cell.stage 4. 3. Deep venous thrombosis, right leg. 4. Anemia requiring transfusion. 5. Hypotension. 6. History of lung cancer with metastasis to the brain and to the lumbar spine, had a chemo as well as radiation treatment. 5. Supra ventricular tachycardia, heart rate around 140, probably multiple factors, slight bump in troponin 0.1. 6 .Brain and spine mets s/p radiation 7.Pulmonary Embolism 8. Hypokalemia 9. Anasarca PLAN: POD #1 S/P femur surgery, nailing. dvt leg s/p IVC filter. PE not a cadidate for anticoagulation due to gi bleed. hypotension on Levophed. extubated this morning iv fluids . recent chemo.Ketruda 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, left femur, initial encounter for fracture Post-Op Diagnosis: same Procedure: * CPT 78737 left hip treatment of intertrochanteric femoral fracture with intramedullary implant, with interlocking screws Surgeon: Imtiaz Eduardo MD Mask Layout Designer: DIANE Crum Anesthesia Type: General EBL: 700 mL Fluids: 2u PRBCs, 2200 crystalloid Specimens Obtained: none Complications: none Right lower extremity DVT- 7 had an IVC filter placed. Patient is not a candidate for anticoagulation due to recent duodenal ulcer with bleeding. Pulmonary embolism. Also had some pulmonary infarcts that are subpleural. Not a candidate for anticoagulation. Lung cancer with extensive metastasis. Patient was treated with Keytruda previously. Hypotension - blood pressure is 89/57. He is off Italo-Synephrine. Hypokalemia- replace potassium,placed on K protocol.K 3.3 Hypernatremia Supra ventricular tachycardia. Followed by sales producer.Cardioverted Severe malnutrition- Albumin very low. Edema- legs weeping with blisters. Order IV albumin and Lasix 1. Echocardiogram The left ventricular systolic function is normal and the ejection fraction is within normal range. The Ejection Fraction is 50-55%. There is normal LV segmental wall motion. The right ventricle is mildly dilated. Doppler and Color Flow revealed trace tricuspid regurgitation with an estimated PAP of 42 mmHg. There is a trace pericardial effusion. Anasarca Anemia- monitor Dysphagia- advance to regular diet. Prognosis is very poor. Recheck labs in a.m. Discussed with Dr. Smith. Continue present treatment here in the ICU. Hold discharge to [facility]. Thrombocytopenia- monitor. Condition, treatment, different medical issues, very poor prognosis extensively discussed with the patient's daughter and multiple family members who are here to meet with the palliative care team. Consider palliative care. As per staff, insurance company has canceled the authorization to transfer the patient to [facility]. Plan Plan For more details regarding further plans, please refer to the orders. Nutrition Consultation Dietary Evaluation: Recommendations by RD: Increase Calorie Intake, Protein supplementation Comments: REC regular diet, honor food preferences, and provide snacks as requested REC Ensure (chocolate) w/lunch trays Expected Outcomes/Goals: PO intake to meet >75% est needs Interpretation of weight loss: >7.5% in 3 months Malnutrition Findings: Food and Nutrition Intake (Sev: <50% est energy req 5days Weight Status: Obese ISIAH GREGORY MD Aug 08, 2019 10:07
--- NOTE | 2019-08-08 13:42 | NUR ---
SS following up with discharge planning. Palliative Care met with SS and requested referral be phoned and faxed to [facility], ; fax [phone]. SS phoned and faxed referral. Hospice notified that pt will need extra long bed, oxygen, and bedside table. Hospice to contact pt's spouse for consents and paperwork. SS will continue to follow for discharge planning.
--- NOTE | 2019-08-08 14:48 | PDOC ---
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 ROS - no CP Objective Objective Vital Signs Date Time Temp Pulse Resp B/P (MAP) Pulse Ox O2 Delivery O2 Flow Rate FiO2 08/08/19 13:14 99 Room Air 08/08/19 13:00 132 20 94/59 (71) 08/08/19 12:00 98.0 98.0 08/08/19 10:00 2.0 Intake and Output 08/08/19 07:00 Intake Total 1635 ml Output Total 3775 ml Balance -2140 ml Intake Oral 1515 ml IV Total 120 ml Output Urine Total 3775 ml # Bowel Movements 1 Physical Exam Heart: Normal S1, Normal S2 General: Alert, Oriented X3 Lungs: Clear to auscultation Neuro: Normal speech Psych/Mental Status: Mental status NL Assessment Assessment Problems Medical Problems: (1) Anemia Status: Acute (2) Deep vein thrombosis of right lower extremity Status: Acute (3) Hypertension Status: Acute (4) Hypotension Status: Acute (5) Metastatic lung cancer (metastasis from lung to other site) Status: Acute (6) 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 He is on treatment with Keytruda under the direction of his oncologist, Dr. Leonardo in [place]. Appreciate palliative care consultation. Pt and family prefer to proceed with hospice. I d/w pt and family in detail today. Consult hospice. His functional status is poor and palliative care with hospice is appropriate. I d/w RN and Dr Smith. 2. Pathologic fracture of the left femoral diaphysis thought to be due to bone metastasis. Appreciate Orthopedics consultation, s/p surgery 08/03/19. s/p left hip treatment of intertrochanteric femoral fracture with intramedullary implant, with interlocking screws 3. Deep venous thrombosis of the right lower extremity due to underlying malignancy. He is not a candidate for anticoagulation because of recent GI bleed from small bowel ulcer. He underwent IVC filter placement on 08/02/2019. Venous Doppler of the right lower extremity on 08/02/2019 revealed occlusive thrombus from the right common femoral vein through the calf veins. Left lower extremity veins are patent. 4. PE 08/03/19: CTA revealed Extensive bilateral pulmonary emboli as described above. There may be subpleural pulmonary infarcts present. 4 cm left upper lobe apical mass concern ing for lung malignancy or metastatic disease. Extensive thoracic metastatic disease with bulky mediastinal and hilar adenopathy as well as lytic bone lesions with extraosseous soft tissue extension as described above. I d/w Dr Moreno and I agree that risks of anticoagulation outweighs benefits in view of recent GI bleed. 5. Anemia due to recent GI bleed and hip fracture. I will check iron studies and B12. Continue to monitor hemoglobin and transfuse as needed. Hb 8.8 on 08/08/19, monitor. Comment Review of Relevant I have reviewed the following items candida (where applicable) has been applied. Labs Laboratory Tests Test 08/07/19 05:15 08/07/19 17:40 08/08/19 05:30 White Blood Count 7.1 x10^3/uL (4.0-11.0) 6.9 x10^3/uL (4.0-11.0) Red Blood Count 2.89 x10^6/uL (4.30-5.70) 3.02 x10^6/uL (4.30-5.70) Hemoglobin 8.5 g/dL (13.0-17.5) 8.8 g/dL (13.0-17.5) Hematocrit 25.7 % (39.0-53.0) 26.9 % (39.0-53.0) Mean Corpuscular Volume 89 fL (79-100) 89 fL (79-100) Mean Corpuscular Hemoglobin 29 pg (25-35) 29 pg (25-35) Mean Corpuscular Hemoglobin Concent 33 g/dL (31-37) 33 g/dL (31-37) Red Cell Distribution Width 15.0 % (11.5-14.5) 15.3 % (11.5-14.5) Platelet Count 110 x10^3/uL (140-400) 123 x10^3/uL (140-400) Neutrophils (%) (Auto) 84 % (31-73) 83 % (31-73) Lymphocytes (%) (Auto) 11 % (24-48) 12 % (24-48) Monocytes (%) (Auto) 5 % (0-9) 5 % (0-9) Eosinophils (%) (Auto) 0 % (0-3) 0 % (0-3) Basophils (%) (Auto) 0 % (0-3) 0 % (0-3) Neutrophils # (Auto) 6.0 x10^3/uL (1.8-7.7) 5.7 x10^3/uL (1.8-7.7) Lymphocytes # (Auto) 0.8 x10^3/uL (1.0-4.8) 0.8 x10^3/uL (1.0-4.8) Monocytes # (Auto) 0.3 x10^3/uL (0.0-1.1) 0.4 x10^3/uL (0.0-1.1) Eosinophils # (Auto) 0.0 x10^3/uL (0.0-0.7) 0.0 x10^3/uL (0.0-0.7) Basophils # (Auto) 0.0 x10^3/uL (0.0-0.2) 0.0 x10^3/uL (0.0-0.2) Sodium Level 142 mmol/L (136-145) 142 mmol/L (136-145) 140 mmol/L (136-145) Potassium Level 3.1 mmol/L (3.5-5.1) 3.8 mmol/L (3.5-5.1) 3.3 mmol/L (3.5-5.1) Chloride Level 108 mmol/L (98-107) 106 mmol/L (98-107) 104 mmol/L (98-107) Carbon Dioxide Level 28 mmol/L (21-32) 27 mmol/L (21-32) 27 mmol/L (21-32) Anion Gap 6 (6-14) 9 (6-14) 9 (6-14) Blood Urea Nitrogen 7 mg/dL (8-26) 7 mg/dL (8-26) 7 mg/dL (8-26) Creatinine 0.6 mg/dL (0.7-1.3) 0.6 mg/dL (0.7-1.3) 0.6 mg/dL (0.7-1.3) Estimated GFR (Cockcroft-Gault) 137.9 137.9 137.9 BUN/Creatinine Ratio 12 (6-20) 12 (6-20) Glucose Level 108 mg/dL (70-99) 103 mg/dL (70-99) 137 mg/dL (70-99) Calcium Level 7.4 mg/dL (8.5-10.1) 7.2 mg/dL (8.5-10.1) 7.5 mg/dL (8.5-10.1) Magnesium Level 1.9 mg/dL (1.8-2.4) 2.0 mg/dL (1.8-2.4) 1.9 mg/dL (1.8-2.4) Total Bilirubin 0.4 mg/dL (0.2-1.0) 0.5 mg/dL (0.2-1.0) Aspartate Amino Transf (AST/SGOT) 44 U/L (15-37) 52 U/L (15-37) Alanine Aminotransferase (ALT/SGPT) 22 U/L (16-63) 26 U/L (16-63) Alkaline Phosphatase 130 U/L (46-116) 139 U/L (46-116) Total Protein 4.8 g/dL (6.4-8.2) 5.0 g/dL (6.4-8.2) Albumin 1.2 g/dL (3.4-5.0) 1.2 g/dL (3.4-5.0) Albumin/Globulin Ratio 0.3 (1.0-1.7) 0.3 (1.0-1.7) Laboratory Tests Test 08/07/19 17:40 08/08/19 05:30 Sodium Level 142 mmol/L (136-145) 140 mmol/L (136-145) Potassium Level 3.8 mmol/L (3.5-5.1) 3.3 mmol/L (3.5-5.1) Chloride Level 106 mmol/L (98-107) 104 mmol/L (98-107) Carbon Dioxide Level 27 mmol/L (21-32) 27 mmol/L (21-32) Anion Gap 9 (6-14) 9 (6-14) Blood Urea Nitrogen 7 mg/dL (8-26) 7 mg/dL (8-26) Creatinine 0.6 mg/dL (0.7-1.3) 0.6 mg/dL (0.7-1.3) Estimated GFR (Cockcroft-Gault) 137.9 137.9 Glucose Level 103 mg/dL (70-99) 137 mg/dL (70-99) Calcium Level 7.2 mg/dL (8.5-10.1) 7.5 mg/dL (8.5-10.1) Magnesium Level 2.0 mg/dL (1.8-2.4) 1.9 mg/dL (1.8-2.4) White Blood Count 6.9 x10^3/uL (4.0-11.0) Red Blood Count 3.02 x10^6/uL (4.30-5.70) Hemoglobin 8.8 g/dL (13.0-17.5) Hematocrit 26.9 % (39.0-53.0) Mean Corpuscular Volume 89 fL (79-100) Mean Corpuscular Hemoglobin 29 pg (25-35) Mean Corpuscular Hemoglobin Concent 33 g/dL (31-37) Red Cell Distribution Width 15.3 % (11.5-14.5) Platelet Count 123 x10^3/uL (140-400) Neutrophils (%) (Auto) 83 % (31-73) Lymphocytes (%) (Auto) 12 % (24-48) Monocytes (%) (Auto) 5 % (0-9) Eosinophils (%) (Auto) 0 % (0-3) Basophils (%) (Auto) 0 % (0-3) Neutrophils # (Auto) 5.7 x10^3/uL (1.8-7.7) Lymphocytes # (Auto) 0.8 x10^3/uL (1.0-4.8) Monocytes # (Auto) 0.4 x10^3/uL (0.0-1.1) Eosinophils # (Auto) 0.0 x10^3/uL (0.0-0.7) Basophils # (Auto) 0.0 x10^3/uL (0.0-0.2) BUN/Creatinine Ratio 12 (6-20) Total Bilirubin 0.5 mg/dL (0.2-1.0) Aspartate Amino Transf (AST/SGOT) 52 U/L (15-37) Alanine Aminotransferase (ALT/SGPT) 26 U/L (16-63) Alkaline Phosphatase 139 U/L (46-116) Total Protein 5.0 g/dL (6.4-8.2) Albumin 1.2 g/dL (3.4-5.0) Albumin/Globulin Ratio 0.3 (1.0-1.7) Microbiology 08/02/19 Blood Culture - Final, Complete NO GROWTH AFTER 5 DAYS Medications Current Medications Sodium Chloride 1,000 ml @ 1,000 mls/hr Q1H IV Last administered on 08/02/19at 16:16; Start 08/02/19 at 16:16; Stop 08/02/19 at 17:15; Status DC Ceftriaxone Sodium (Rocephin) 1 gm 1X ONCE IVP ; Start 08/02/19 at 17:45; Stop 08/02/19 at 17:46; Status DC Sodium Chloride 1,000 ml @ 1,000 mls/hr 1X ONCE IV Last administered on 08/02/19at 17:45; Start 08/02/19 at 17:45; Stop 08/02/19 at 18:44; Status DC Sodium Chloride 1,000 ml @ 150 mls/hr Q6H40M IV Last administered on 08/02/19at 18:20; Start 08/02/19 at 17:35; Stop 08/02/19 at 20:29; Status DC Norepinephrine Bitartrate 250 ml @ 29.512 mls/ hr CONT PRN IV SEE I/O RECORD Last administered on 08/04/19at 17:41; Start 08/02/19 at 19:15 Sodium Chloride 1,000 ml @ 100 mls/hr Q10H IV Last administered on 08/04/19at 06:01; Start 08/02/19 at 20:30; Stop 08/04/19 at 10:40; Status DC Fentanyl Citrate (Fentanyl 2ml Vial) 25 mcg PRN Q2HR PRN IVP MODERATE TO SEVERE PAIN Last administered on 08/07/19at 19:48; Start 08/02/19 at 20:30 Potassium Chloride/Water 50 ml @ 50 mls/hr Q1H IV Last administered on 08/03/19at 09:26; Start 08/03/19 at 07:00; Stop 08/03/19 at 09:59; Status DC Magnesium Sulfate 50 ml @ 25 mls/hr 1X ONCE IV Last administered on 08/03/19at 10:29; Start 08/03/19 at 11:00; Stop 08/03/19 at 12:59; Status DC Iohexol (Omnipaque 350 Mg/ml) 100 ml 1X ONCE IV Last administered on 08/03/19at 11:30; Start 08/03/19 at 11:30; Stop 08/03/19 at 11:31; Status DC Info (CONTRAST GIVEN -- Rx MONITORING) 1 each PRN DAILY PRN MC SEE COMMENTS; Start 08/03/19 at 11:30; Stop 08/05/19 at 11:29; Status DC Cefazolin Sodium 3 gm/Dextrose 100 ml @ 200 mls/hr 1X PREOP PRN IV PRIOR TO PROCEDURE; Start 08/03/19 at 14:00; Stop 08/03/19 at 18:00; Status DC Rocuronium [place] (Zemuron) 50 mg STK-MED ONCE .ROUTE ; Start 08/03/19 at 14:36; Stop 08/03/19 at 14:37; Status DC Fentanyl Citrate (Fentanyl 2ml Vial) 100 mcg STK-MED ONCE .ROUTE ; Start 08/03/19 at 14:36; Stop 08/03/19 at 14:37; Status DC Ondansetron HCl (Zofran) 4 mg STK-MED ONCE .ROUTE ; Start 08/03/19 at 14:37; Stop 08/03/19 at 14:37; Status DC Dexamethasone Sodium Phosphate (Decadron) 4 mg STK-MED ONCE .ROUTE ; Start 08/03/19 at 14:37; Stop 08/03/19 at 14:37; Status DC Etomidate (Amidate) 20 mg STK-MED ONCE IV ; Start 08/03/19 at 14:37; Stop 08/03/19 at 14:37; Status DC Ropivacaine 53.3 ml/Epinephrine HCl 0.6 mg/ Morphine Sulfate 5 mg/Sodium Chloride 100 ml @ 100 mls/hr 1X ONCE INT ART Last administered on 08/03/19at 15:51; Start 08/03/19 at 16:00; Stop 08/03/19 at 16:59; Status DC Rocuronium [place] (Zemuron) 50 mg STK-MED ONCE .ROUTE ; Start 08/03/19 at 15:39; Stop 08/03/19 at 15:39; Status DC Phenylephrine HCl (PHENYLEPHRINE in 0.9% NACL PF) 1 mg STK-MED ONCE IV ; Start 08/03/19 at 15:48; Stop 08/03/19 at 15:49; Status DC Phenylephrine HCl (PHENYLEPHRINE in 0.9% NACL PF) 1 mg STK-MED ONCE IV ; Start 08/03/19 at 15:48; Stop 08/03/19 at 15:49; Status DC Esmolol HCl (Brevibloc) 100 mg STK-MED ONCE IVP ; Start 08/03/19 at 16:35; Stop 08/03/19 at 16:35; Status DC Phenylephrine HCl (Italo-Synephrine Inj) 10 mg STK-MED ONCE .ROUTE ; Start 08/03/19 at 16:49; Stop 08/03/19 at 16:49; Status DC Propofol 100 ml @ As Directed STK-MED ONCE IV ; Start 08/03/19 at 18:30; Stop 08/03/19 at 18:31; Status DC Propofol 100 ml @ 2.123 mls/ hr CONT PRN IV SEE I/O RECORD Last administered on 08/04/19at 06:37; Start 08/03/19 at 18:45 Cefazolin Sodium 3 gm/Dextrose 100 ml @ 200 mls/hr Q8H IV Last administered on 08/04/19at 14:23; Start 08/03/19 at 23:00; Stop 08/04/19 at 15:29; Status DC Phenylephrine HCl (Italo-Synephrine Inj) 10 mg STK-MED ONCE .ROUTE ; Start 08/03/19 at 18:47; Stop 08/03/19 at 18:47; Status DC Sevoflurane (Ultane) 90 ml STK-MED ONCE IH ; Start 08/03/19 at 18:50; Stop 08/03/19 at 18:51; Status DC Fentanyl Citrate 30 ml @ 0 mls/hr CONT PRN IV SEE PROTOCOL Last administered on 08/04/19at 01:45; Start 08/03/19 at 20:00 Famotidine (Pepcid Vial) 20 mg BID IVP Last administered on 08/08/19at 08:20; Start 08/04/19 at 10:00 Potassium Chloride/Dextrose/ Sod Cl 1,000 ml @ 100 mls/hr Q10H IV Last administered on 08/05/19 07:54; Start 08/04/19 at 10:30; Stop 08/05/19 at 17:5 1; Status DC Potassium Chloride/Water 50 ml @ 50 mls/hr 1X ONCE IV Last administered on 08/04/19 11:13; Start 08/04/19 at 10:30; Stop 08/04/19 at 11:29; Status DC Haloperidol Lactate (Haldol Inj) 1 mg PRN Q6HRS PRN IVP AGITATION, 2ND CHOICE Last administered on 08/04/19 12:43; Start 08/04/19 at 12:45 Haloperidol Lactate (Haldol Inj) 0.5 mg PRN Q6HRS PRN IVP AGITATION, 1ST CHOICE Last administered on 08/04/19 14:48; Start 08/04/19 at 12:45 Amiodarone HCl 150 mg/Dextrose 103 ml @ 618 mls/hr 1X ONCE IV Last administered on 08/04/19 17:29; Start 08/04/19 at 17:30; Stop 08/04/19 at 17:39; Status DC Digoxin (Lanoxin) 500 mcg PRN 1X PRN IV TACHYCARDIA Last administered on 08/04/19 17:52; Start 08/04/19 at 17:45 Midazolam HCl (Versed) 2 mg 1X ONCE IV Last administered on 08/04/19 18:47; Start 08/04/19 at 18:45; Stop 08/04/19 at 18:46; Status DC Phenylephrine HCl 20 mg/Sodium Chloride 252 ml @ 52.466 mls/ hr CONT PRN IV SEE I/O RECORD Last administered on 08/05/19 12:00; Start 08/04/19 at 18:45; Stop 08/05/19 at 13:34; Status DC Fentanyl Citrate (Fentanyl 2ml Vial) 50 mcg 1X ONCE IVP Last administered on 08/04/19 18:47; Start 08/04/19 at 18:45; Stop 08/04/19 at 18:46; Status DC Metoprolol Tartrate (Lopressor Vial) 5 mg PRN Q6HRS PRN IVP TACHYCARDIA Last administered on 08/06/19 19:45; Start 08/05/19 at 03:45 Amiodarone HCl 150 mg/Dextrose 103 ml @ 618 mls/hr 1X ONCE IV Last administered on 08/05/19at 04:29; Start 08/05/19 at 04:00; Stop 08/05/19 at 04:09; Status DC Potassium Chloride (Klor-Con) 20 meq 1X ONCE PO Last administered on 08/05/19at 07:54; Start 08/05/19 at 08:00; Stop 08/05/19 at 08:01; Status DC Potassium Chloride/Water 50 ml @ 50 mls/hr Q1H IV Last administered on 08/05/19at 09:07; Start 08/05/19 at 08:00; Stop 08/05/19 at 09:59; Status DC Potassium Chloride/Water 50 ml @ 50 mls/hr Q1H IV Last administered on 08/05/19at 14:37; Start 08/05/19 at 13:00; Stop 08/05/19 at 14:59; Status DC Magnesium Sulfate 100 ml @ 50 mls/hr DAILY IV Last administered on 08/08/19at 10:00; Start 08/05/19 at 13:00; Stop 08/09/19 at 12:59 Phenylephrine HCl 80 mg/Sodium Chloride 258 ml @ 13.545 mls/ hr CONT PRN IV SEE I/O RECORD Last administered on 08/06/19at 22:11; Start 08/05/19 at 13:45 Potassium Chloride/Water 50 ml @ 50 mls/hr Q1H IV Last administered on 08/06/19at 09:01; Start 08/06/19 at 08:00; Stop 08/06/19 at 09:59; Status DC Albumin Human 50 ml @ 50 mls/hr 1X ONCE IV Last administered on 08/06/19at 14:29; Start 08/06/19 at 13:45; Stop 08/06/19 at 14:44; Status DC Furosemide (Lasix) 40 mg 1X ONCE IVP Last administered on 08/06/19at 19:44; Start 08/06/19 at 19:00; Stop 08/06/19 at 19:01; Status DC Potassium Chloride/Water 50 ml @ 50 mls/hr Q1H IV Last administered on 08/07/19at 11:00; Start 08/07/19 at 10:00; Stop 08/07/19 at 11:59; Status DC Acetaminophen (Tylenol) 650 mg PRN Q6HRS PRN PO MILD PAIN / TEMP; Start 08/07/19 at 10:00 Sennosides (Senna) 8.6 mg DAILY PO Last administered on 08/08/19at 08:19; Start 08/07/19 at 10:00 Oxycodone HCl (Roxicodone) 5 mg PRN Q4HRS PRN PO MODERATE TO SEVERE PAIN Last administered on 08/08/19at 12:14; Start 08/07/19 at 10:15 Polyethylene Glycol (miraLAX PACKET) 17 gm DAILY PO ; Start 08/07/19 at 10:00 Potassium Chloride/Water 50 ml @ 50 mls/hr Q1H IV Last administered on 08/08/19at 10:01; Start 08/08/19 at 08:00; Stop 08/08/19 at 09:59; Status DC Albumin Human 50 ml @ 50 mls/hr 1X ONCE IV Last administered on 08/08/19at 1 0:01; Start 08/08/19 at 10:00; Stop 08/08/19 at 10:59; Status DC Furosemide (Lasix) 40 mg 1X ONCE IVP Last administered on 08/08/19at 11:12; Start 08/08/19 at 10:00; Stop 08/08/19 at 10:01; Status DC Active Scripts Active Reported Losartan Potassium (Losartan Potassium) 25 Mg Tablet 100 Mg PO DAILY 90 Days Gabapentin (Gabapentin) 300 Mg Capsule 300 Mg PO BID Furosemide 40 Mg Tablet 40 Mg PO DAILY Escitalopram Oxalate 10 Mg Tablet 10 Mg PO DAILY Amlodipine Besylate 5 Mg Tablet 5 Mg PO DAILY Acetaminophen 500 Mg Tablet 325 Mg PO PRN Oxycodone Hcl 5 Mg Capsule 5 Mg PO PRN Q4HRS PRN Flomax (Tamsulosin Hcl) 0.4 Mg Cap.er.24h 0.4 Mg PO DAILY Pantoprazole Sodium (Pantoprazole Sodium) 40 Mg Tablet.dr 40 Mg PO DAILYAC Modafinil 200 Mg Tablet 200 Mg PO DAILY Levetiracetam 500 Mg Tablet 500 Mg PO BID FENTANYL 25mcg/hr (Fentanyl) 1 Each Patch.td72 1 Patch TD Q72H Senna Lax (Sennosides) 8.6 Mg Tablet 8.6 Mg PO PRN Atorvastatin Calcium 10 Mg Tablet 10 Mg PO HS Polyethylene Glycol 3350 2,500 Gm Powder 17 Gm PO DAILY NITROGLYCERIN SubLingual (Nitroglycerin) 0.4 Mg Tab.subl 0.4 Mg SL PRN Q5MIN PRN Metoprolol Succinate ( Xl ) (Metoprolol Succinate) 25 Mg Tab.er.24h 50 Mg PO DAILY Loperamide (Loperamide Hcl) 2 Mg Tablet 2 Mg PO PRN Hydrochlorothiazide Capsule (Hydrochlorothiazide) 12.5 Mg Capsule 12.5 Mg PO DAILY Vitals/I & O Vital Sign - Last 24 Hours 08/07/19 08/07/19 08/07/19 08/07/19 15:00 15:30 15:34 16:00 Pulse 135 136 Resp 23 23 B/P (MAP) 113/58 (76) 107/49 (68) Pulse Ox 98 98 98 O2 Delivery Nasal Cannula Nasal Cannula Nasal Cannula Nasal Cannula O2 Flow Rate 2.0 2.0 2.0 2.0 08/07/19 08/07/19 08/07/19 08/07/19 16:34 17:00 18:00 19:00 Temp 98.6 98.6 Pulse 135 135 136 Resp 23 23 24 B/P (MAP) 90/48 (62) 113/62 (79) 100/61 (74) Pulse Ox 98 98 98 100 O2 Delivery Nasal Cannula Nasal Cannula Nasal Cannula Nasal Cannula O2 Flow Rate 2.0 2.0 2.0 2.0 08/07/19 08/07/19 08/07/19 08/07/19 19:48 20:00 20:00 20:07 Pulse 136 Resp 23 12 B/P (MAP) 86/57 (67) Pulse Ox 98 99 98 O2 Delivery Nasal Cannula Nasal Cannula Nasal Cannula Nasal Cannula O2 Flow Rate 2.0 2.0 2.0 2.0 08/07/19 08/07/19 08/07/19 08/07/19 20:18 21:00 21:07 22:00 Pulse 136 137 Resp 24 33 B/P (MAP) 102/49 (66) 95/41 (59) Pulse Ox 98 99 98 100 O2 Delivery Nasal Cannula Nasal Cannula Nasal Cannula Nasal Cannula O2 Flow Rate 2.0 2.0 2.0 2.0 11/608/07/19 08/08/19 08/08/19 23:00 23:59 00:00 01:00 Temp 99.0 99.0 Pulse 133 133 135 Resp 30 20 20 B/P (MAP) 106/63 (77) 103/57 (72) 73/55 (61) Pulse Ox 95 97 98 O2 Delivery Nasal Cannula Nasal Cannula Nasal Cannula Nasal Cannula O2 Flow Rate 2.0 2.0 2.0 2.0 08/08/19 08/08/19 08/08/19 08/08/19 02:00 03:00 04:00 04:45 Temp 98.8 98.8 Pulse 133 135 134 Resp 29 12 24 B/P (MAP) 95/60 (72) 93/55 (68) 111/67 (82) Pulse Ox 99 96 99 O2 Delivery Nasal Cannula Nasal Cannula Nasal Cannula Nasal Cannula O2 Flow Rate 2.0 2.0 2.0 2.0 08/08/19 08/08/19 08/08/19 08/08/19 05:00 06:00 07:00 08:00 Pulse 133 136 130 Resp 28 28 23 B/P (MAP) 101/68 (79) 119/70 (86) 120/82 (95) Pulse Ox 98 95 95 O2 Delivery Nasal Cannula Nasal Cannula Nasal Cannula Nasal Cannula O2 Flow Rate 2.0 2.0 2.0 2.0 08/08/19 08/08/19 08/08/19 08/08/19 08:00 09:00 10:00 11:00 Temp 98.6 98.6 Pulse 130 131 130 121 Resp 23 23 23 20 B/P (MAP) 95/72 (80) 89/57 (68) 119/72 (88) 102/76 (85) Pulse Ox 95 95 95 99 O2 Delivery Nasal Cannula Nasal Cannula Nasal Cannula Room Air O2 Flow Rate 2.0 2.0 2.0 08/08/19 08/08/19 08/08/19 08/08/19 12:00 12:00 12:14 13:00 Temp 98.0 98.0 Pulse 134 132 Resp 23 20 B/P (MAP) 83/55 (64) 94/59 (71) Pulse Ox 95 99 99 O2 Delivery Room Air Room Air Room Air Room Air 08/08/19 13:14 Pulse Ox 99 O2 Delivery Room Air Intake and Output 08/07/19 08/07/19 08/08/19 15:00 23:00 07:00 Intake Total 690 ml 420 ml 525 ml Output Total 975 ml 1400 ml 1400 ml Balance -285 ml -980 ml -875 ml Nutrition Consultation Dietary Evaluation: Recommendations by RD: Increase Calorie Intake, Protein supplementation Comments: REC regular diet, honor food preferences, and provide snacks as requested REC Ensure (chocolate or strawberry) TID Expected Outcomes/Goals: PO intake to meet >75% est needs - met at times, goal ongoing Interpretation of weight loss: >7.5% in 3 months Malnutrition Findings: Food and Nutrition Intake (Sev: <50% est energy req 5days Weight Status: Obese KATHIE MACIAS MD Aug 08, 2019 14:48
--- NOTE | 2019-08-08 16:13 | PDOC2 ---
PALLIATIVE CARE Palliative Care Note Palliative Care Patient alert. Spoke with patient prior to family meeting. Long period of silence when asking about his wishes Did indicate that his family was aware and could proceed with family meeting. Denied pain or SOB Met with Lindsay Borrero-mother, Dante-father, Emilee -other; Ludmila hoytr in-law; Matt son per phone; Zully-close family friend; Family understands medical condition and poor prognosis. (1) Anemia (2) Deep vein thrombosis of right lower extremity (3) Hypertension (4) Hypotension (5) Metastatic lung cancer (metastasis from lung to other site) (6) Metastatic squamous cell carcinoma to lung (7) Pathological fracture of left femur (8) Sepsis (9) Supraventricular tachycardia Family shared patient hasn't walked in 2 months. Has said in the past that he would not want to be put on Life Support. Has always been the strong person in the family.---willing to help everyone else. 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 Reviewed insurance coverage; unable to return to [facility] or no coverage at [facility]. Discussed options for care; Continue current aggressive treatment plan vs home with home health vs home with hospice. Family would like to take him home--Matt's home here in [place]. Requested input from Dr. Montoya to see if Keytruda treatment would be of any benefit. Discussed Code Status; DNR/DNI. Outside the Hospital form signed by . will need physician signature Plan; Home with Hospice--- Hospice when discharged DME: Long bed with overlay for skin protection: has blisters on skin. oxygen Bedside table Matt's address: [address] [place] [id number] Gissell: phone number; [phone] Amanda COON will assist with discharge planning LEBRON VERAS Aug 08, 2019 16:13
--- NOTE | 2019-08-08 16:15 | NUR ---
Wound Care Wound care consult for blisters to BLE. Pt is leaving with hospice, recommend xeroform, ABDs and kerlix for comfort care.
[2019-08-08 17:12] LABS: CALCIUM 7.6 mg/dL (8.5-10.1); CREATININE 0.7 mg/dL (0.7-1.3); GFR 115.4; POTASSIUM 3.6 mmol/L (3.5-5.1)
[2019-08-08 17:18] LABS: ALBUMIN 1.4 g/dL (3.4-5.0); ALBUMIN/GLOBULIN RATIO 0.4 (1.0-1.7); MAGNESIUM 2.3 mg/dL (1.8-2.4); TOTAL BILIRUBIN 0.4 mg/dL (0.2-1.0); TOTAL PROTEIN 4.7 g/dL (6.4-8.2)
[2019-08-08] MEDS: fentaNYL PF VIAL 100 MCG/2 ML VIAL IVP PRN (18:13)
--- NOTE | 2019-08-08 18:22 | NUR ---
Perry from [facility] here to see patient. Talked with family members. Plan on DC'ing tomorrow to hospice.
[2019-08-09] VITALS (17 sets, daily range): BP systolic 78–109; BP diastolic 50–80
[2019-08-09] MEDS: MAGNESIUM SULFATE 4GM 100 ML IV SCH (09:00)
[2019-08-09] MEDS: SENNOSIDES 8.6 MG TABLET PO SCH (09:09)
[2019-08-09] MEDS: POLYETHYLENE GLYCOL 3350 17 GM PACKET. PO SCH (09:09)
[2019-08-09] MEDS: FAMOTIDINE 20 MG/2 ML VIAL IVP SCH (09:09)
[2019-08-09] MEDS: oxyCODONE IR 5 MG TABLET PO PRN (09:10)
[2019-08-09] MEDS ORDERED: POLYETHYLENE GLYCOL 3350 17 GM PACKET. ONE (09:15)
--- NOTE | 2019-08-09 09:26 | PDOC ---
PULMONARY PROGRESS NOTES Subjective OFF PRESSORS WEAK NOT MORE SOA Vitals Vital Signs Date Time Temp Pulse Resp B/P (MAP) Pulse Ox O2 Delivery O2 Flow Rate FiO2 08/09/19 09:10 22 94 Room Air 2.0 08/09/19 09:08 133 99/53 (68) 08/09/19 07:00 98.3 98.3 ROS: No Nausea, No Chest Pain, No Abdominal Pain General: Alert Lungs: Clear Cardiovascular: S1, S2 Abdomen: Soft, Non-tender Neuro Exam: Alert Extremities: Other (EDEMA) Skin: Warm Labs Laboratory Tests Test 08/07/19 17:40 08/08/19 05:30 08/08/19 16:55 Sodium Level 142 mmol/L (136-145) 140 mmol/L (136-145) 141 mmol/L (136-145) Potassium Level 3.8 mmol/L (3.5-5.1) 3.3 mmol/L (3.5-5.1) 3.6 mmol/L (3.5-5.1) Chloride Level 106 mmol/L (98-107) 104 mmol/L (98-107) 103 mmol/L (98-107) Carbon Dioxide Level 27 mmol/L (21-32) 27 mmol/L (21-32) 30 mmol/L (21-32) Anion Gap 9 (6-14) 9 (6-14) 8 (6-14) Blood Urea Nitrogen 7 mg/dL (8-26) 7 mg/dL (8-26) 8 mg/dL (8-26) Creatinine 0.6 mg/dL (0.7-1.3) 0.6 mg/dL (0.7-1.3) 0.7 mg/dL (0.7-1.3) Estimated GFR (Cockcroft-Gault) 137.9 137.9 115.4 Glucose Level 103 mg/dL (70-99) 137 mg/dL (70-99) 142 mg/dL (70-99) Calcium Level 7.2 mg/dL (8.5-10.1) 7.5 mg/dL (8.5-10.1) 7.6 mg/dL (8.5-10.1) Magnesium Level 2.0 mg/dL (1.8-2.4) 1.9 mg/dL (1.8-2.4) 2.3 mg/dL (1.8-2.4) White Blood Count 6.9 x10^3/uL (4.0-11.0) Red Blood Count 3.02 x10^6/uL (4.30-5.70) Hemoglobin 8.8 g/dL (13.0-17.5) Hematocrit 26.9 % (39.0-53.0) Mean Corpuscular Volume 89 fL (79-100) Mean Corpuscular Hemoglobin 29 pg (25-35) Mean Corpuscular Hemoglobin Concent 33 g/dL (31-37) Red Cell Distribution Width 15.3 % (11.5-14.5) Platelet Count 123 x10^3/uL (140-400) Neutrophils (%) (Auto) 83 % (31-73) Lymphocytes (%) (Auto) 12 % (24-48) Monocytes (%) (Auto) 5 % (0-9) Eosinophils (%) (Auto) 0 % (0-3) Basophils (%) (Auto) 0 % (0-3) Neutrophils # (Auto) 5.7 x10^3/uL (1.8-7.7) Lymphocytes # (Auto) 0.8 x10^3/uL (1.0-4.8) Monocytes # (Auto) 0.4 x10^3/uL (0.0-1.1) Eosinophils # (Auto) 0.0 x10^3/uL (0.0-0.7) Basophils # (Auto) 0.0 x10^3/uL (0.0-0.2) BUN/Creatinine Ratio 12 (6-20) 11 (6-20) Total Bilirubin 0.5 mg/dL (0.2-1.0) 0.4 mg/dL (0.2-1.0) Aspartate Amino Transf (AST/SGOT) 52 U/L (15-37) 57 U/L (15-37) Alanine Aminotransferase (ALT/SGPT) 26 U/L (16-63) 26 U/L (16-63) Alkaline Phosphatase 139 U/L (46-116) 144 U/L (46-116) Total Protein 5.0 g/dL (6.4-8.2) 4.7 g/dL (6.4-8.2) Albumin 1.2 g/dL (3.4-5.0) 1.4 g/dL (3.4-5.0) Albumin/Globulin Ratio 0.3 (1.0-1.7) 0.4 (1.0-1.7) Laboratory Tests Test 08/08/19 16:55 Sodium Level 141 mmol/L (136-145) Potassium Level 3.6 mmol/L (3.5-5.1) Chloride Level 103 mmol/L (98-107) Carbon Dioxide Level 30 mmol/L (21-32) Anion Gap 8 (6-14) Blood Urea Nitrogen 8 mg/dL (8-26) Creatinine 0.7 mg/dL (0.7-1.3) Estimated GFR (Cockcroft-Gault) 115.4 BUN/Creatinine Ratio 11 (6-20) Glucose Level 142 mg/dL (70-99) Calcium Level 7.6 mg/dL (8.5-10.1) Magnesium Level 2.3 mg/dL (1.8-2.4) Total Bilirubin 0.4 mg/dL (0.2-1.0) Aspartate Amino Transf (AST/SGOT) 57 U/L (15-37) Alanine Aminotransferase (ALT/SGPT) 26 U/L (16-63) Alkaline Phosphatase 144 U/L (46-116) Total Protein 4.7 g/dL (6.4-8.2) Albumin 1.4 g/dL (3.4-5.0) Albumin/Globulin Ratio 0.4 (1.0-1.7) Medications Active Scripts Medications Dose Route/Sig Max Daily Dose Days Date Category Losartan Potassium (Losartan Potassium) 25 Mg Tablet 100 Mg PO DAILY 90 08/04/19 Reported Gabapentin (Gabapentin) 300 Mg Capsule 300 Mg PO BID 08/04/19 Reported Furosemide 40 Mg Tablet 40 Mg PO DAILY 08/04/19 Reported Escitalopram Oxalate 10 Mg Tablet 10 Mg PO DAILY 08/04/19 Reported Amlodipine Besylate 5 Mg Tablet 5 Mg PO DAILY 08/04/19 Reported Acetaminophen 500 Mg Tablet 325 Mg PO PRN 08/04/19 Reported Oxycodone Hcl 5 Mg Capsule 5 Mg PO PRN Q4HRS PRN 08/04/19 Reported Flomax (Tamsulosin Hcl) 0.4 Mg Cap.er.24h 0.4 Mg PO DAILY 08/04/19 Reported Pantoprazole Sodium (Pantoprazole Sodium) 40 Mg Tablet.dr 40 Mg PO DAILYAC 08/04/19 Reported Modafinil 200 Mg Tablet 200 Mg PO DAILY 08/04/19 Reported Levetiracetam 500 Mg Tablet 500 Mg PO BID 08/04/19 Reported FENTANYL 25mcg/hr (Fentanyl) 1 Each Patch.td72 1 Patch TD Q72H 08/04/19 Reported Senna Lax (Sennosides) 8.6 Mg Tablet 8.6 Mg PO PRN 08/04/19 Reported Atorvastatin Calcium 10 Mg Tablet 10 Mg PO HS 08/04/19 Reported Polyethylene Glycol 3350 2,500 Gm Powder 17 Gm PO DAILY 08/04/19 Reported NITROGLYCERIN SubLingual (Nitroglycerin) 0.4 Mg Tab.subl 0.4 Mg SL PRN Q5MIN PRN 08/04/19 Reported Metoprolol Succinate ( Xl ) (Metoprolol Succinate) 25 Mg Tab.er.24h 50 Mg PO DAILY 08/04/19 Reported Loperamide (Loperamide Hcl) 2 Mg Tablet 2 Mg PO PRN 08/04/19 Reported Hydrochlorothiazide Capsule (Hydrochlorothiazide) 12.5 Mg Capsule 12.5 Mg PO DAILY 08/04/19 Reported Impression . 1. Acute Respiratory Failure IMPROVED 2. Metastatic squamous cell lung cancer 3. Pulmonary emboli 4. Recent GI bleed with anemia 5. Pathological femur fracture, s/p repair 6. HYPOTENSION SUSPECT LOW VOLUME 7. SEVERE PROTEIN MALNUTRITION POA Plan . APPRECIATE PAT NOTE FROM PALLIATIVE CARE I CONCUR WITH DECISION WILL S/O EFREN COTTRELL MD Aug 09, 2019 09:26
--- NOTE | 2019-08-09 09:34 | SNU/HH DC ---
DISCHARGE ORDERS DISCHARGE INFORMATION: FINAL DIAGNOSIS Problems Medical Problems: (1) Anemia Status: Acute (2) Deep vein thrombosis of right lower extremity Status: Acute (3) Hypertension Status: Acute (4) Hypotension Status: Acute (5) Metastatic lung cancer (metastasis from lung to other site) Status: Acute (6) Metastatic squamous cell carcinoma to lung Status: Chronic (7) Pathological fracture of left femur Status: Acute (8) Sepsis Status: Acute (9) Supraventricular tachycardia Status: Acute CONDITION ON DISCHARGE: Guarded HOSPICE: HOSPICE: Yes HOSPICE EVAL & TREAT: Yes POST DISCHARGE ORDERS: ACTIVITY ORDERS: Bedrest today DIET AFTER DISCHARGE: Regular DISCHARGE MEDICATIONS: Home Meds Reported Medications Gabapentin (GABAPENTIN ) 300 Mg Capsule, 300 MG PO BID for NEUROGENIC PAIN, CAP 08/04/19 Furosemide (FUROSEMIDE) 40 Mg Tablet, 40 MG PO DAILY for ., TAB 08/04/19 Acetaminophen (ACETAMINOPHEN) 500 Mg Tablet, 325 MG PO PRN for ., TAB 08/04/19 Oxycodone Hcl (OXYCODONE HCL) 5 Mg Capsule, 5 MG PO PRN Q4HRS PRN for PAIN, TAB 0 Refills 08/04/19 Pantoprazole Sodium (PANTOPRAZOLE SODIUM ) 40 Mg Tablet.dr, 40 MG PO DAILYAC for GERD, TAB 08/04/19 Levetiracetam (LEVETIRACETAM) 500 Mg Tablet, 500 MG PO BID for ., TAB 08/04/19 Fentanyl (FENTANYL 25mcg/hr) 1 Each Patch.td72, 1 PATCH TD Q72H for ., PATCH 08/04/19 Polyethylene Glycol 3350 (POLYETHYLENE GLYCOL 3350) 2,500 Gm Powder, 17 GM PO DAILY for constipation, #255 GM 0 Refills 08/04/19 Discontinued Reported Medications Losartan Potassium (LOSARTAN POTASSIUM ) 25 Mg Tablet, 100 MG PO DAILY for HYPERTENSION for 90 Days, #360 TAB 08/04/19 Escitalopram Oxalate (ESCITALOPRAM OXALATE) 10 Mg Tablet, 10 MG PO DAILY for ANTI-DEPRESSANT, #30 TAB 0 Refills 08/04/19 Amlodipine Besylate (AMLODIPINE BESYLATE) 5 Mg Tablet, 5 MG PO DAILY for ., TAB 08/04/19 Tamsulosin Hcl (FLOMAX) 0.4 Mg Cap.er.24h, 0.4 MG PO DAILY for ., TAB 08/04/19 Modafinil (MODAFINIL) 200 Mg Tablet, 200 MG PO DAILY for ., TAB 08/04/19 Sennosides (SENNA LAX) 8.6 Mg Tablet, 8.6 MG PO PRN for diarrhea, TAB 08/04/19 Atorvastatin Calcium (ATORVASTATIN CALCIUM) 10 Mg Tablet, 10 MG PO HS for FOR CHOLESTEROL, #30 TAB 0 Refills 08/04/19 Nitroglycerin (NITROGLYCERIN SubLingual) 0.4 Mg Tab.subl, 0.4 MG SL PRN Q5MIN PRN for CHEST PAIN, BOTTLE 08/04/19 Metoprolol Succinate (METOPROLOL SUCCINATE ( XL )) 25 Mg Tab.er.24h, 50 MG PO DAILY for FOR HYPERTENSION, #30 TAB 0 Refills 08/04/19 Loperamide Hcl (LOPERAMIDE) 2 Mg Tablet, 2 MG PO PRN for loose stools, TAB 08/04/19 Hydrochlorothiazide (HYDROCHLOROTHIAZIDE CAPSULE ) 12.5 Mg Capsule, 12.5 MG PO DAILY for DIURETIC, CAP 0 Refills 08/04/19 ISIAH GREGORY MD Aug 09, 2019 09:34
[2019-08-09 09:40] LABS: BASO % 0 % (0-3); EOS % 0 % (0-3); HEMATOCRIT 27.6 % (39.0-53.0); HEMOGLOBIN 9.1 g/dL (13.0-17.5); LYMPH # 0.8 x10^3/uL (1.0-4.8); LYMPH % 12 % (24-48); MEAN CORPUSCULAR HEMOGLOBIN 29 pg (25-35); MEAN CORPUSCULAR HGB CONC 33 g/dL (31-37); MEAN CORPUSCULAR VOLUME 89 fL (79-100); MONO # 0.4 x10^3/uL (0.0-1.1); MONO % 5 % (0-9); NEUT # 5.5 x10^3/uL (1.8-7.7); NEUT % 82 % (31-73); PLATELET COUNT 155 x10^3/uL (140-400); RED CELL DISTRIBUTION WIDTH 15.3 % (11.5-14.5); WHITE BLOOD COUNT 6.7 x10^3/uL (4.0-11.0)
[2019-08-09 10:00] LABS: ALBUMIN 1.3 g/dL (3.4-5.0); ALBUMIN/GLOBULIN RATIO 0.3 (1.0-1.7); CALCIUM 7.7 mg/dL (8.5-10.1); CREATININE 0.7 mg/dL (0.7-1.3); GFR 115.4; POTASSIUM 3.5 mmol/L (3.5-5.1); TOTAL BILIRUBIN 0.5 mg/dL (0.2-1.0); TOTAL PROTEIN 5.2 g/dL (6.4-8.2)
[2019-08-09] MEDS ORDERED: ALPRAZolam 0.25 MG TABLET PO ONE ×2 (10:00→15:45)
--- NOTE | 2019-08-09 10:01 | PDOC3 ---
IM DISCHARGE SUMMARY Date of Admission Date of Admission Date of Admission: Aug 02, 2019 at 17:49 Date of Discharge Date of Discharge August 09, 2019 Primary Diagnosis Primary Diagnosis 1. Pathological fracture of the left femur. 2. Lung cancer with metastasis, squamous cell.stage 4. 3. Deep venous thrombosis, right leg. 4. Anemia requiring transfusion. 5. Hypotension. 6. History of lung cancer with metastasis to the brain and to the lumbar spine, had a chemo as well as radiation treatment. 5. Supra ventricular tachycardia, heart rate around 140, probably multiple factors, slight bump in troponin 0.1. 6 .Brain and spine mets s/p radiation 7.Pulmonary Embolism 8. Hypokalemia 9. Anasarca 10. Severe protein calorie malnutrition Consults Consults Christopher Daigle MD; Souleymane Montoya MD; Charles Smith MD; Imtiaz Eduardo MD Labs Labs Laboratory Tests Test 08/08/19 16:55 08/09/19 09:30 Sodium Level 141 mmol/L (136-145) Potassium Level 3.6 mmol/L (3.5-5.1) Chloride Level 103 mmol/L (98-107) Carbon Dioxide Level 30 mmol/L (21-32) Anion Gap 8 (6-14) Blood Urea Nitrogen 8 mg/dL (8-26) Creatinine 0.7 mg/dL (0.7-1.3) Estimated GFR (Cockcroft-Gault) 115.4 BUN/Creatinine Ratio 11 (6-20) Glucose Level 142 mg/dL (70-99) H Calcium Level 7.6 mg/dL (8.5-10.1) L Magnesium Level 2.3 mg/dL (1.8-2.4) Total Bilirubin 0.4 mg/dL (0.2-1.0) Aspartate Amino Transferase (AST) 57 U/L (15-37) H Alanine Aminotransferase (ALT) 26 U/L (16-63) Alkaline Phosphatase 144 U/L (46-116) H Total Protein 4.7 g/dL (6.4-8.2) L Albumin 1.4 g/dL (3.4-5.0) L Albumin/Globulin Ratio 0.4 (1.0-1.7) L White Blood Count 6.7 x10^3/uL (4.0-11.0) Red Blood Count 3.10 x10^6/uL (4.30-5.70) L Hemoglobin 9.1 g/dL (13.0-17.5) L Hematocrit 27.6 % (39.0-53.0) L Mean Corpuscular Volume 89 fL (79-100) Mean Corpuscular Hemoglobin 29 pg (25-35) Mean Corpuscular Hemoglobin Concent 33 g/dL (31-37) Red Cell Distribution Width 15.3 % (11.5-14.5) H Platelet Count 155 x10^3/uL (140-400) Neutrophils (%) (Auto) 82 % (31-73) H Lymphocytes (%) (Auto) 12 % (24-48) L Monocytes (%) (Auto) 5 % (0-9) Eosinophils (%) (Auto) 0 % (0-3) Basophils (%) (Auto) 0 % (0-3) Neutrophils # (Auto) 5.5 x10^3/uL (1.8-7.7) Lymphocytes # (Auto) 0.8 x10^3/uL (1.0-4.8) L Monocytes # (Auto) 0.4 x10^3/uL (0.0-1.1) Eosinophils # (Auto) 0.0 x10^3/uL (0.0-0.7) Basophils # (Auto) 0.0 x10^3/uL (0.0-0.2) Laboratory Tests 08/09/19 09:30 Laboratory Tests 08/08/19 16:55 Brief hospital course Brief hospital course The patient is a 59-year-old male. Patient was admitted from [facility] to [facility] day before yesterday, which is on 08/01/2019 and he has a history of stage 4 squamous cell lung CA with metastasis to the brain as well as L1 vertebra. The patient was treated in 07/2019 with Keytruda. He had brain radiation. Had radiation to lumbar spine too, total of 10 treatments in July. The patient was initially admitted to acute rehab, but continued to have generalized weakness, unable to tolerate rehab. The patient was transferred to [facility] that was 2 days ago and the patient in the [facility] was found to have a hemoglobin low at 6.8 and he also was found to have a DVT, right leg. The patient was sent to [facility] for IVC filter and x-rays show he had a pathological fracture of the left hip and the patient was also hypotensive, anemic, hemoglobin 6, was admitted to the ICU, was started on Levophed and also given 2 units of packed RBC, hemoglobin went up to 8. The patient is being evaluated by orthopedic, Cardiology. For more details regarding the past history, family history, social history, surgical history and other details, please refer to History and Physical. Pathological fracture of the left femur - S/P femur surgery, nailing. PE not a cadidate for anticoagulation due to gi bleed. hypotension on Levophed. iv fluids . recent chemo.Ketruda 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, left femur, initial encounter for fracture Post-Op Diagnosis: same Procedure: * CPT 07002 left hip treatment of intertrochanteric femoral fracture with intramedullary implant, with interlocking screws Surgeon: Imtiaz Eduardo MD Drug Safety Coordinator: DIANE Crum Anesthesia Type: General EBL: 700 mL Fluids: 2u PRBCs, 2200 crystalloid Specimens Obtained: none Complications: none Right lower extremity DVT- 7 had an IVC filter placed. Patient is not a ca ndidate for anticoagulation due to recent duodenal ulcer with bleeding. Pulmonary embolism. Also had some pulmonary infarcts that are subpleural. Not a candidate for anticoagulation. Lung cancer with extensive metastasis. Patient was treated with Keytruda previously. Hypotension - blood pressure is 89/57. He is off Italo-Synephrine. Hypokalemia- replace potassium,placed on K protocol.K 3.3 Hypernatremia Supra ventricular tachycardia. Followed by puddler helper.Cardioverted Severe malnutrition- Albumin very low. Edema- legs weeping with blisters. Order IV albumin and Lasix 1. Echocardiogram The left ventricular systolic function is normal and the ejection fraction is within normal range. The Ejection Fraction is 50-55%. There is normal LV segmental wall motion. The right ventricle is mildly dilated. Doppler and Color Flow revealed trace tricuspid regurgitation with an estimated PAP of 42 mmHg. There is a trace pericardial effusion. Anasarca Anemia- monitor Dysphagia- advance to regular diet. Prognosis is very poor. Recheck labs in a.m. Discussed with Dr. Smith. Continue present treatment here in the ICU. Hold discharge to [facility]. Thrombocytopenia- monitor. Condition, treatment, different medical issues, very poor prognosis extensively discussed with the patient's daughter and multiple family members who are here to meet with the palliative care team. As per staff, insurance company has canceled the authorization to transfer the patient to [facility]. Palliative care team met with the patient and the family. Family and the patient has decided to go home with hospice. Drug masses remains extremity poor. Patient is off Italo-Synephrine. Retention and blisters are improving but still has a lot of fluid. I'll give him 1 more dose of IV albumin and Lasix today. We'll discharge him today if possible with hospice. Prognosis is extremely poor. Medications Current Medications Medications (Trade) Dose Ordered Sig/Ryan Route PRN Reason Start Time Stop Time Status Last Admin Dose Admin Albumin Human 50 ml @ 50 mls/hr 1X ONCE IV 08/08/19 10:00 08/08/19 10:59 DC 08/08/19 10:01 Furosemide (Lasix) 40 mg 1X ONCE IVP 08/08/19 10:00 08/08/19 10:01 DC 08/08/19 11:12 Medications reviewed and reconciled for discharge. Allergy Allergies Coded Allergies Type Severity Reaction Last Updated Verified bee venom protein (honey bee) Allergy Intermediate 08/03/19 Yes Follow up By Hospice DISPOSITION: Home (home with hospice) Comments Discharge Management - 35 minutes. For other details please refer to discharge instructions ISIAH GREGORY MD Aug 09, 2019 10:01
[2019-08-09] MEDS ORDERED: ALBUMIN HUMAN 25% 50 ML IV ONE (10:30)
[2019-08-09] MEDS ORDERED: FUROSEMIDE 40 MG/4 ML VIAL. IVP ONE (10:30)
--- NOTE | 2019-08-09 11:05 | NUR ---
SS following up with discharge planning. SS received phone contact from [facility] requesting transportation to home be scheduled between 1530 and 1600. SS contacted pt's spouse and verified time. [facility] reported that DME would be delivered to the home by 1200 and the admission RN will admit pt in the home at 1700. Discharge ordered received. SS phoned and faxed discharge orders to [facility], ; fax [phone]. Pt will discharge today and return to home via [facility] ambulance, , at 1600. Pt, pt's spouse, and pt's RN notified.
--- NOTE | 2019-08-09 14:53 | PDOC ---
PROGRESS NOTES Subjective Subjective HPI - f/u of Stage 4 lung cancer/NSCLC ROS -no fever Objective Objective Vital Signs Date Time Temp Pulse Resp B/P (MAP) Pulse Ox O2 Delivery O2 Flow Rate FiO2 08/09/19 13:13 138 21 100/61 (74) 95 Room Air 08/09/19 12:03 99.9 99.9 08/09/19 10:10 2.0 Intake and Output 08/09/19 07:00 Intake Total 640 ml Output Total 2180 ml Balance -1540 ml Intake Oral 640 ml Output Urine Total 2180 ml # Bowel Movements 2 Physical Exam Heart: Normal S1, Normal S2 General: Alert, Oriented X3 Lungs: Clear to auscultation Neuro: Normal speech Psych/Mental Status: Mental status NL Assessment Assessment Problems Medical Problems: (1) Anemia Status: Acute (2) Deep vein thrombosis of right lower extremity Status: Acute (3) Hypertension Status: Acute (4) Hypotension Status: Acute (5) Metastatic lung cancer (metastasis from lung to other site) Status: Acute (6) 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 He is on treatme nt with Keytruda under the direction of his oncologist, Dr. Leonardo in [place]. Appreciate palliative care consultation. Pt and family prefer to proceed with hospice. I d/w pt and family in detail today. Consulted [facility]. His functional status is poor and palliative care with hospice is appropriate. I d/w RN and Dr Smith. Probable discharge with hospice today. 2. Pathologic fracture of the left femoral diaphysis thought to be due to bone metastasis. Appreciate Orthopedics consultation, s/p surgery 08/03/19. s/p left hip treatment of intertrochanteric femoral fracture with intramedullary implant, with interlocking screws 3. Deep venous thrombosis of the right lower extremity due to underlying malignancy. He is not a candidate for anticoagulation because of recent GI bleed from small bowel ulcer. He underwent IVC filter placement on 08/02/2019. Venous Doppler of the right lower extremity on 08/02/2019 revealed occlusive thrombus from the right common femoral vein through the calf veins. Left lower extremity veins are patent. 4. PE 08/03/19: CTA revealed Extensive bilateral pulmonary emboli as described above. There may be subpleural pulmonary infarcts present. 4 cm left upper lobe apical mass concerning for lung malignancy or metastatic disease. Extensive thoracic metastatic disease with bulky mediastinal and hilar adenopathy as well as lytic bone lesions with extraosseous soft tissue extension as described above. I d/w Dr Moreno and I agree that risks of anticoagulation outweighs benefits in view of recent GI bleed. 5. Anemia due to recent GI bleed and hip fracture. I will check iron studies and B12. Continue to monitor hemoglobin and transfuse as needed. Hb 8.8 on 08/08/19, monitor. Comment Review of Relevant I have reviewed the following items candida (where applicable) has been applied. Labs Laboratory Tests Test 08/07/19 17:40 08/08/19 05:30 08/08/19 16:55 08/09/19 09:30 Sodium Level 142 mmol/L (136-145) 140 mmol/L (136-145) 141 mmol/L (136-145) 140 mmol/L (136-145) Potassium Level 3.8 mmol/L (3.5-5.1) 3.3 mmol/L (3.5-5.1) 3.6 mmol/L (3.5-5.1) 3.5 mmol/L (3.5-5.1) Chloride Level 106 mmol/L (98-107) 104 mmol/L (98-107) 103 mmol/L (98-107) 104 mmol/L (98-107) Carbon Dioxide Level 27 mmol/L (21-32) 27 mmol/L (21-32) 30 mmol/L (21-32) 27 mmol/L (21-32) Anion Gap 9 (6-14) 9 (6-14) 8 (6-14) 9 (6-14) Blood Urea Nitrogen 7 mg/dL (8-26) 7 mg/dL (8-26) 8 mg/dL (8-26) 8 mg/dL (8- 26) Creatinine 0.6 mg/dL (0.7-1.3) 0.6 mg/dL (0.7-1.3) 0.7 mg/dL (0.7-1.3) 0.7 mg/dL (0.7-1.3) Estimated GFR (Cockcroft-Gault) 137.9 137.9 115.4 115.4 Glucose Level 103 mg/dL (70-99) 137 mg/dL (70-99) 142 mg/dL (70-99) 131 mg/dL (70-99) Calcium Level 7.2 mg/dL (8.5-10.1) 7.5 mg/dL (8.5-10.1) 7.6 mg/dL (8.5-10.1) 7.7 mg/dL (8.5-10.1) Magnesium Level 2.0 mg/dL (1.8-2.4) 1.9 mg/dL (1.8-2.4) 2.3 mg/dL (1.8-2.4) 1.9 mg/dL (1.8-2.4) White Blood Count 6.9 x10^3/uL (4.0-11.0) 6.7 x10^3/uL (4.0-11.0) Red Blood Count 3.02 x10^6/uL (4.30-5.70) 3.10 x10^6/uL (4.30-5.70) Hemoglobin 8.8 g/dL (13.0-17.5) 9.1 g/dL (13.0-17.5) Hematocrit 26.9 % (39.0-53.0) 27.6 % (39.0-53.0) Mean Corpuscular Volume 89 fL (79-100) 89 fL (79-100) Mean Corpuscular Hemoglobin 29 pg (25-35) 29 pg (25-35) Mean Corpuscular Hemoglobin Concent 33 g/dL (31-37) 33 g/dL (31-37) Red Cell Distribution Width 15.3 % (11.5-14.5) 15.3 % (11.5-14.5) Platelet Count 123 x10^3/uL (140-400) 155 x10^3/uL (140-400) Neutrophils (%) (Auto) 83 % (31-73) 82 % (31-73) Lymphocytes (%) (Auto) 12 % (24-48) 12 % (24-48) Monocytes (%) (Auto) 5 % (0-9) 5 % (0-9) Eosinophils (%) (Auto) 0 % (0-3) 0 % (0-3) Basophils (%) (Auto) 0 % (0-3) 0 % (0-3) Neutrophils # (Auto) 5.7 x10^3/uL (1.8-7.7) 5.5 x10^3/uL (1.8-7.7) Lymphocytes # (Auto) 0.8 x10^3/uL (1.0-4.8) 0.8 x10^3/uL (1.0-4.8) Monocytes # (Auto) 0.4 x10^3/uL (0.0-1.1) 0.4 x10^3/uL (0.0-1.1) Eosinophils # (Auto) 0.0 x10^3/uL (0.0-0.7) 0.0 x10^3/uL (0.0-0.7) Basophils # (Auto) 0.0 x10^3/uL (0.0-0.2) 0.0 x10^3/uL (0.0-0.2) BUN/Creatinine Ratio 12 (6-20) 11 (6-20) 11 (6-20) Total Bilirubin 0.5 mg/dL (0.2-1.0) 0.4 mg/dL (0.2-1.0) 0.5 mg/dL (0.2-1.0) Aspartate Amino Transf (AST/SGOT) 52 U/L (15-37) 57 U/L (15-37) 57 U/L (15-37) Alanine Aminotransferase (ALT/SGPT) 26 U/L (16-63) 26 U/L (16-63) 29 U/L (16-63) Alkaline Phosphatase 139 U/L (46-116) 144 U/L (46-116) 144 U/L (46-116) Total Protein 5.0 g/dL (6.4-8.2) 4.7 g/dL (6.4-8.2) 5.2 g/dL (6.4-8.2) Albumin 1.2 g/dL (3.4-5.0) 1.4 g/dL (3.4-5.0) 1.3 g/dL (3.4-5.0) Albumin/Globulin Ratio 0.3 (1.0-1.7) 0.4 (1.0-1.7) 0.3 (1.0-1.7) Laboratory Tests Test 08/08/19 16:55 08/09/19 09:30 Sodium Level 141 mmol/L (136-145) 140 mmol/L (136-145) Potassium Level 3.6 mmol/L (3.5-5.1) 3.5 mmol/L (3.5-5.1) Chloride Level 103 mmol/L (98-107) 104 mmol/L (98-107) Carbon Dioxide Level 30 mmol/L (21-32) 27 mmol/L (21-32) Anion Gap 8 (6-14) 9 (6-14) Blood Urea Nitrogen 8 mg/dL (8-26) 8 mg/dL (8-26) Creatinine 0.7 mg/dL (0.7-1.3) 0.7 mg/dL (0.7-1.3) Estimated GFR (Cockcroft-Gault) 115.4 115.4 BUN/Creatinine Ratio 11 (6-20) 11 (6-20) Glucose Level 142 mg/dL (70-99) 131 mg/dL (70-99) Calcium Level 7.6 mg/dL (8.5-10.1) 7.7 mg/dL (8.5-10.1) Magnesium Level 2.3 mg/dL (1.8-2.4) 1.9 mg/dL (1.8-2.4) Total Bilirubin 0.4 mg/dL (0.2-1.0) 0.5 mg/dL (0.2-1.0) Aspartate Amino Transf (AST/SGOT) 57 U/L (15-37) 57 U/L (15-37) Alanine Aminotransferase (ALT/SGPT) 26 U/L (16-63) 29 U/L (16-63) Alkaline Phosphatase 144 U/L (46-116) 144 U/L (46-116) Total Protein 4.7 g/dL (6.4-8.2) 5.2 g/dL (6.4-8.2) Albumin 1.4 g/dL (3.4-5.0) 1.3 g/dL (3.4-5.0) Albumin/Globulin Ratio 0.4 (1.0-1.7) 0.3 (1.0-1.7) White Blood Count 6.7 x10^3/uL (4.0-11.0) Red Blood Count 3.10 x10^6/uL (4.30-5.70) Hemoglobin 9.1 g/dL (13.0-17.5) Hematocrit 27.6 % (39.0-53.0) Mean Corpuscular Volume 89 fL (79-100) Mean Corpuscular Hemoglobin 29 pg (25-35) Mean Corpuscular Hemoglobin Concent 33 g/dL (31-37) Red Cell Distribution Width 15.3 % (11.5-14.5) Platelet Count 155 x10^3/uL (140-400) Neutrophils (%) (Auto) 82 % (31-73) Lymphocytes (%) (Auto) 12 % (24-48) Monocytes (%) (Auto) 5 % (0-9) Eosinophils (%) (Auto) 0 % (0-3) Basophils (%) (Auto) 0 % (0-3) Neutrophils # (Auto) 5.5 x10^3/uL (1.8-7.7) Lymphocytes # (Auto) 0.8 x10^3/uL (1.0-4.8) Monocytes # (Auto) 0.4 x10^3/uL (0.0-1.1) Eosinophils # (Auto) 0.0 x10^3/uL (0.0-0.7) Basophils # (Auto) 0.0 x10^3/uL (0.0-0.2) Microbiology 08/02/19 Blood Culture - Final, Complete NO GROWTH AFTER 5 DAYS Medications Current Medications Sodium Chloride 1,000 ml @ 1,000 mls/hr Q1H IV Last administered on 08/02/19at 16:16; Start 08/02/19 at 16:16; Stop 08/02/19 at 17:15; Status DC Ceftriaxone Sodium (Rocephin) 1 gm 1X ONCE IVP ; Start 08/02/19 at 17:45; Stop 08/02/19 at 17:46; Status DC Sodium Chloride 1,000 ml @ 1,000 mls/hr 1X ONCE IV Last administered on 08/02/19at 17:45; Start 08/02/19 at 17:45; Stop 08/02/19 at 18:44; Status DC Sodium Chloride 1,000 ml @ 150 mls/hr Q6H40M IV Last administered on 08/02/19at 18:20; Start 08/02/19 at 17:35; Stop 08/02/19 at 20:29; Status DC Norepinephrine Bitartrate 250 ml @ 29.512 mls/ hr CONT PRN IV SEE I/O RECORD Last administered on 08/04/19at 17:41; Start 08/02/19 at 19:15 Sodium Chloride 1,000 ml @ 100 mls/hr Q10H IV Last administered on 08/04/19at 06:01; Start 08/02/19 at 20:30; Stop 08/04/19 at 10:40; Status DC Fentanyl Citrate (Fentanyl 2ml Vial) 25 mcg PRN Q2HR PRN IVP MODERATE TO SEVERE PAIN Last administered on 08/08/19at 18:13; Start 08/02/19 at 20:30 Potassium Chloride/Water 50 ml @ 50 mls/hr Q1H IV Last administered on 08/03/19at 09:26; Start 08/03/19 at 07:00; Stop 08/03/19 at 09:59; Status DC Magnesium Sulfate 50 ml @ 25 mls/hr 1X ONCE IV Last administered on 08/03/19at 10:29; Start 08/03/19 at 11:00; Stop 08/03/19 at 12:59; Status DC Iohexol (Omnipaque 350 Mg/ml) 100 ml 1X ONCE IV Last administered on 08/03/19at 11:30; Start 08/03/19 at 11:30; Stop 08/03/19 at 11:31; Status DC Info (CONTRAST GIVEN -- Rx MONITORING) 1 each PRN DAILY PRN MC SEE COMMENTS; Start 08/03/19 at 11:30; Stop 08/05/19 at 11:29; Status DC Cefazolin Sodium 3 gm/Dextrose 100 ml @ 200 mls/hr 1X PREOP PRN IV PRIOR TO PROCEDURE; Start 08/03/19 at 14:00; Stop 08/03/19 at 18:00; Status DC Rocuronium [place] (Zemuron) 50 mg K-MED ONCE .ROUTE ; Start 08/03/19 at 14:36; Stop 08/03/19 at 14:37; Status DC Fentanyl Citrate (Fentanyl 2ml Vial) 100 mcg STK-MED ONCE .ROUTE ; Start 08/03/19 at 14:36; Stop 08/03/19 at 14:37; Status DC Ondansetron HCl (Zofran) 4 mg STK-MED ONCE .ROUTE ; Start 08/03/19 at 14:37; Stop 08/03/19 at 14:37; Status DC Dexamethasone Sodium Phosphate (Decadron) 4 mg STK-MED ONCE .ROUTE ; Start 08/03/19 at 14:37; Stop 08/03/19 at 14:37; Status DC Etomidate (Amidate) 20 mg STK-MED ONCE IV ; Start 08/03/19 at 14:37; Stop 08/03/19 at 14:37; Status DC Ropivacaine 53.3 ml/Epinephrine HCl 0.6 mg/ Morphine Sulfate 5 mg/Sodium Chloride 100 ml @ 100 mls/hr 1X ONCE INT ART Last administered on 08/03/19at 15:51; Start 08/03/19 at 16:00; Stop 08/03/19 at 16:59; Status DC Rocuronium [place] (Zemuron) 50 mg STK-MED ONCE .ROUTE ; Start 08/03/19 at 15:39; Stop 08/03/19 at 15:39; Status DC Phenylephrine HCl (PHENYLEPHRINE in 0.9% NACL PF) 1 mg STK-MED ONCE IV ; Start 08/03/19 at 15:48; Stop 08/03/19 at 15:49; Status DC Phenylephrine HCl (PHENYLEPHRINE in 0.9% NACL PF) 1 mg STK-MED ONCE IV ; Start 08/03/19 at 15:48; Stop 08/03/19 at 15:49; Status DC Esmolol HCl (Brevibloc) 100 mg STK-MED ONCE IVP ; Start 08/03/19 at 16:35; Stop 08/03/19 at 16:35; Status DC Phenylephrine HCl (Italo-Synephrine Inj) 10 mg STK-MED ONCE .ROUTE ; Start 08/03/19 at 16:49; Stop 08/03/19 at 16:49; Status DC Propofol 100 ml @ As Directed STK-MED ONCE IV ; Start 08/03/19 at 18:30; Stop 08/03/19 at 18:31; Status DC Propofol 100 ml @ 2.123 mls/ hr CONT PRN IV SEE I/O RECORD Last administered on 08/04/19at 06:37; Start 08/03/19 at 18:45 Cefazolin Sodium 3 gm/Dextrose 100 ml @ 200 mls/hr Q8H IV Last administered on 08/04/19at 14:23; Start 08/03/19 at 23:00; Stop 08/04/19 at 15:29; Status DC Phenylephrine HCl (Italo-Synephrine Inj) 10 mg STK-MED ONCE .ROUTE ; Start 08/03/19 at 18:47; Stop 08/03/19 at 18:47; Status DC Sevoflurane (Ultane) 90 ml STK-MED ONCE IH ; Start 08/03/19 at 18:50; Stop 08/03/19 at 18:51; Status DC Fentanyl Citrate 30 ml @ 0 mls/hr CONT PRN IV SEE PROTOCOL Last administered on 08/04/19at 01:45; Start 08/03/19 at 20:00 Famotidine (Pepcid Vial) 20 mg BID IVP Last administered on 08/09/19at 09:09; Start 08/04/19 at 10:00 Potassium Chloride/Dextrose/ Sod Cl 1,000 ml @ 100 mls/hr Q10H IV Last administered on 08/05/19at 07:54; Start 08/04/19 at 10:30; Stop 08/05/19 at 17:51; Status DC Potassium Chloride/Water 50 ml @ 50 mls/hr 1X ONCE IV Last administered on 08/04/19at 11:13; Start 08/04/19 at 10:30; Stop 08/04/19 at 11:29; Status DC Haloperidol Lactate (Haldol Inj) 1 mg PRN Q6HRS PRN IVP AGITATION, 2ND CHOICE Last administered on 08/04/19at 12:43; Start 08/04/19 at 12:45 Haloperidol Lactate (Haldol Inj) 0.5 mg PRN Q6HRS PRN IVP AGITATION, 1ST CHOICE Last administered on 08/04/19at 14:48; Start 08/04/19 at 12:45 Amiodarone HCl 150 mg/Dextrose 103 ml @ 618 mls/hr 1X ONCE IV Last administered on 08/04/19 17:29; Start 08/04/19 at 17:30; Stop 08/04/19 at 17:39; Status DC Digoxin (Lanoxin) 500 mcg PRN 1X PRN IV TACHYCARDIA Last administered on 08/04/19 17:52; Start 08/04/19 at 17:45 Midazolam HCl (Versed) 2 mg 1X ONCE IV Last administered on 08/04/19 18:47; Start 08/04/19 at 18:45; Stop 08/04/19 at 18:46; Status DC Phenylephrine HCl 20 mg/Sodium Chloride 252 ml @ 52.466 mls/ hr CONT PRN IV SEE I/O RECORD Last administered on 08/05/19 12:00; Start 08/04/19 at 18:45; Stop 08/05/19 at 13:34; Status DC Fentanyl Citrate (Fentanyl 2ml Vial) 50 mcg 1X ONCE IVP Last administered on 08/04/19 18:47; Start 08/04/19 at 18:45; Stop 08/04/19 at 18:46; Status DC Metoprolol Tartrate (Lopressor Vial) 5 mg PRN Q6HRS PRN IVP TACHYCARDIA Last administered on 08/06/19 19:45; Start 08/05/19 at 03:45 Amiodarone HCl 150 mg/Dextrose 103 ml @ 618 mls/hr 1X ONCE IV Last administered on 08/05/19 04:29; Start 08/05/19 at 04:00; Stop 08/05/19 at 04:09; Status DC Potassium Chloride (Klor-Con) 20 meq 1X ONCE PO Last administered on 08/05/19 07:54; Start 08/05/19 at 08:00; Stop 08/05/19 at 08:01; Status DC Potassium Chloride/Water 50 ml @ 50 mls/hr Q1H IV Last administered on 08/05/19 09:07; Start 08/05/19 at 08:00; Stop 08/05/19 at 09:59; Status DC Potassium Chloride/Water 50 ml @ 50 mls/hr Q1H IV Last administered on 08/05/19 14:37; Start 08/05/19 at 13:00; Stop 08/05/19 at 14:59; Status DC Magnesium Sulfate 100 ml @ 50 mls/hr DAILY IV Last administered on 08/08/19at 10:00; Start 08/05/19 at 13:00; Stop 08/09/19 at 12:59; Status DC Phenylephrine HCl 80 mg/Sodium Chloride 258 ml @ 13.545 mls/ hr CONT PRN IV SEE I/O RECORD Last administered on 08/06/19 22:11; Start 08/05/19 at 13:45 Potassium Chloride/Water 50 ml @ 50 mls/hr Q1H IV Last administered on 08/06/19 09:01; Start 08/06/19 at 08:00; Stop 08/06/19 at 09:59; Status DC Albumin Human 50 ml @ 50 mls/hr 1X ONCE IV Last administered on 08/06/19 14:29; Start 08/06/19 at 13:45; Stop 08/06/19 at 14:44; Status DC Furosemide (Lasix) 40 mg 1X ONCE IVP Last administered on 08/06/19at 19:44; Start 08/06/19 at 19:00; Stop 08/06/19 at 19:01; Status DC Potassium Chloride/Water 50 ml @ 50 mls/hr Q1H IV Last administered on 08/07/19at 11:00; Start 08/07/19 at 10:00; Stop 08/07/19 at 11:59; Status DC Acetaminophen (Tylenol) 650 mg PRN Q6HRS PRN PO MILD PAIN / TEMP; Start 08/07/19 at 10:00 Sennosides (Senna) 8.6 mg DAILY PO Last administered on 08/09/19 09:09; Start 08/07/19 at 10:00 Oxycodone HCl (Roxicodone) 5 mg PRN Q4HRS PRN PO MODERATE TO SEVERE PAIN Last administered on 08/09/19 09:10; Start 08/07/19 at 10:15 Polyethylene Glycol (miraLAX PACKET) 17 gm DAILY PO Last administered on 09:09; Start 08/07/19 at 10:00 Potassium Chloride/Water 50 ml @ 50 mls/hr Q1H IV Last administered on 08/08/19at 10:01; Start 08/08/19 at 08:00; Stop 08/08/19 at 09:59; Status DC Albumin Human 50 ml @ 50 mls/hr 1X ONCE IV Last administered on 08/08/19at 10:01; Start 08/08/19 at 10:00; Stop 08/08/19 at 10:59; Status DC Furosemide (Lasix) 40 mg 1X ONCE IVP Last administered on 08/08/19at 11:12; Start 08/08/19 at 10:00; Stop 08/08/19 at 10:01; Status DC Alprazolam (Xanax) 0.25 mg 1X ONCE PO ; Start 08/09/19 at 10:00; Stop 08/09/19 at 10:01; Status DC Albumin Human 50 ml @ 50 mls/hr 1X ONCE IV Last administered on 08/09/19at 10:50; Start 08/09/19 at 10:30; Stop 08/09/19 at 11:29; Status DC Furosemide (Lasix) 40 mg 1X ONCE IVP Last administered on 08/09/19at 10:50; Start 08/09/19 at 10:30; Stop 08/09/19 at 10:31; Status DC Active Scripts Active Reported Losartan Potassium (Losartan Potassium) 25 Mg Tablet 100 Mg PO DAILY 90 Days Gabapentin (Gabapentin) 300 Mg Capsule 300 Mg PO BID Furosemide 40 Mg Tablet 40 Mg PO DAILY Acetaminophen 500 Mg Tablet 325 Mg PO PRN Oxycodone Hcl 5 Mg Capsule 5 Mg PO PRN Q4HRS PRN Pantoprazole Sodium (Pantoprazole Sodium) 40 Mg Tablet.dr 40 Mg PO DAILYAC Levetiracetam 500 Mg Tablet 500 Mg PO BID FENTANYL 25mcg/hr (Fentanyl) 1 Each Patch.td72 1 Patch TD Q72H Polyethylene Glycol 3350 2,500 Gm Powder 17 Gm PO DAILY Vitals/I & O Vital Sign - Last 24 Hours 08/08/19 08/08/19 08/08/19 08/08/19 15:00 16:00 16:00 16:11 Pulse 134 133 Resp 20 20 B/P (MAP) 85/50 (62) 97/64 (75) Pulse Ox 99 99 99 O2 Delivery Room Air Room Air Room Air Room Air 08/08/19 08/08/19 08/08/19 08/08/19 17:00 17:11 18:00 18:13 Pulse 135 133 Resp 22 B/P (MAP) 106/54 (71) 77/54 (62) Pulse Ox 99 99 99 99 O2 Delivery Room Air Room Air Room Air Room Air O2 Flow Rate 2.0 08/08/19 08/08/19 08/08/19 08/08/19 18:43 19:00 20:00 20:00 Temp 98.5 98.5 Pulse 133 132 Resp 18 B/P (MAP) 103/70 (81) 116/66 (83) Pulse Ox 99 95 95 O2 Delivery Room Air Room Air Room Air Room Air O2 Flow Rate 2.0 08/08/19 08/08/19 08/08/19 08/08/19 21:00 21:29 22:00 22:29 Pulse 133 133 Resp B/P (MAP) 109/60 (76) 105/61 (76) Pulse Ox 96 96 96 96 O2 Delivery Room Air Room Air Room Air Room Air O2 Flow Rate 2.0 2.0 08/08/19 08/08/19 08/09/19 08/09/19 23:00 23:59 00:00 01:00 Temp 98.5 98.5 Pulse 132 132 132 Resp 29 B/P (MAP) 94/72 (79) 104/57 (73) 107/63 (78) Pulse Ox 94 94 96 O2 Delivery Room Air Room Air Room Air Room Air 08/09/19 08/09/19 08/09/19 08/09/19 02:00 03:00 04:00 04:00 Temp 98.6 98.6 Pulse 130 132 132 Resp 24 B/P (MAP) 109/67 (81) 97/70 (79) 102/80 (87) Pulse Ox 97 96 94 O2 Delivery Room Air Room Air Room Air Room Air 08/09/19 08/09/19 08/09/19 08/09/19 05:00 06:00 07:00 08:02 Temp 98.3 98.3 Pulse 130 130 132 Resp 22 22 20 B/P (MAP) 105/57 (73) 78/54 (62) 91/56 (68) Pulse Ox 96 96 95 O2 Delivery Room Air Room Air Room Air Room Air 08/09/19 08/09/19 08/09/19 08/09/19 08:16 09:08 09:10 10:10 Pulse 133 133 Resp 24 22 22 15 B/P (MAP) 95/53 (67) 99/53 (68) Pulse Ox 95 94 94 98 O2 Delivery Room Air Room Air Room Air Room Air O2 Flow Rate 2.0 2.0 08/09/19 08/09/19 08/09/19 08/09/19 10:16 10:59 12:03 12:09 Temp 99.9 99.9 Pulse 133 138 135 Resp 20 16 20 B/P (MAP) 97/59 (72) 83/50 (61) 96/62 (73) Pulse Ox 92 96 99 O2 Delivery Room Air Room Air Room Air Room Air 08/09/19 13:13 Pulse 138 Resp 21 B/P (MAP) 100/61 (74) Pulse Ox 95 O2 Delivery Room Air Intake and Output 08/08/19 08/08/19 08/09/19 15:00 23:00 07:00 Intake Total 640 ml Output Total 1325 ml 355 ml 500 ml Balance -685 ml -355 ml -500 ml Nutrition Consultation Dietary Evaluation: Recommendations by RD: Increase Calorie Intake, Protein supplementation Comments: REC regular diet, honor food preferences, and provide snacks as requested REC Ensure (chocolate or strawberry) TID Expected Outcomes/Goals: PO intake to meet >75% est needs - met at times, goal ongoing Interpretation of weight loss: >7.5% in 3 months Malnutrition Findings: Food and Nutrition Intake (Sev: <50% est energy req 5days Weight Status: Obese KATHIE MACIAS MD Aug 09, 2019 14:53
[2019-08-09] MEDS ORDERED: HEPARIN PF 500 UNIT/5 ML DISP.SYRIN. ONE (15:23)
[2019-08-09] MEDS ORDERED: HEPARIN PF 500 UNIT/5 ML DISP.SYRIN. IVP ONE (15:30)
--- NOTE | 2019-08-09 17:00 | NUR ---
Discharge Note: [facility] Discharge instructions and discharge home medications reviewed with Family Member and a copy given. All questions have been answered and understanding verbalized. The following instructions and handouts were given: Patient sent home with hospice services. Education pertaining to malnutrition was discussed and sent home with patient. Discontinued lines and drains: L chest port was deaccessed. R 20g AC removed with intact. Patient discharged to home with hospice. EMS drove patient from [facility] facility.
== END 2019-08-09 17:41 | disposition hospice, home (50) | DRG 480 ==
LOC: ER 16:00 → 1 WEST ICU 17:49
PROVIDERS: ADMIT Internal Medicine; ATTEND Internal Medicine
PROC: 5A1935Z Respiratory Ventilation, Less than 24 Consecutive Hours (ICD-10-PCS; 2019-08-03)
PROC: 30233N1 Transfusion of Nonautologous Red Blood Cells into Peripheral Vein, Percutaneous Approach (ICD-10-PCS; 2019-08-03)
PROC: 0QS736Z Reposition Left Upper Femur with Intramedullary Internal Fixation Device, Percutaneous Approach (ICD-10-PCS; principal; 2019-08-03 14:00)
PROC: 0BH17EZ Insertion of Endotracheal Airway into Trachea, Via Natural or Artificial Opening (ICD-10-PCS; 2019-08-04)
DX: M84.452A Pathological fracture, left femur, initial encounter for fracture (principal); J96.00 Acute respiratory failure, unspecified whether with hypoxia or hypercapnia; E43 Unspecified severe protein-calorie malnutrition; C34.90 Malignant neoplasm of unspecified part of unspecified bronchus or lung; C79.31 Secondary malignant neoplasm of brain; C79.51 Secondary malignant neoplasm of bone; C79.89 Secondary malignant neoplasm of other specified sites; E87.0 Hyperosmolality and hypernatremia; I47.1 Supraventricular tachycardia; I82.403 Acute embolism and thrombosis of unspecified deep veins of lower extremity, bilateral; D64.9 Anemia, unspecified; D69.6 Thrombocytopenia, unspecified; E87.6 Hypokalemia; I10 Essential (primary) hypertension; R13.10 Dysphagia, unspecified; Z66 Do not resuscitate; Z85.118 Personal history of other malignant neoplasm of bronchus and lung; Z85.46 Personal history of malignant neoplasm of prostate; Z86.711 Personal history of pulmonary embolism; Z86.718 Personal history of other venous thrombosis and embolism; Z87.11 Personal history of peptic ulcer disease; Z87.891 Personal history of nicotine dependence; Z92.3 Personal history of irradiation; Z95.828 Presence of other vascular implants and grafts; F32.9 Major depressive disorder, single episode, unspecified; Z68.36 Body mass index [BMI] 36.0-36.9, adult; Z91.030 Bee allergy status
CPT/HCPCS: 36415; 36600; 71045; 71275; 72192; 73502; 74018; 76000; 80048; 80053; 82550; 82607; 82728; 82805; 83540; 83550; 83605; 83690; 83735; 83880; 84484; 85007; 85014; 85018; 85025; 85610; 85730; 86850; 86900; 86901; 86920; 87040; 93005; 93306; 94002; 94003; 94760; 96360; 96361; 99292; A7015; C1713; C1887; J0171; J0282; J0690; J1100; J1160; J1630; J1940; J2250; J2270; J2370; J2405; J2704; J2795; J3010; J3475; J3480; J3490; J7030; J7050; P9016; P9046; Q9967; 99291-25; G0378